=== PATIENT | male | born 1950 | race African-American/Black ===

== ENCOUNTER 2018-07-21 05:04 | Inpatient (IN) | payer MEDICARE, MEDICAID ==
[~2018-07-21] VITALS: Ht 172.7 cm; Wt 97.5 kg
[~2018-07-21 05:04] MED LIST: ACET1TAB14 PO; AMIO100T4 PO; AMLO10TA80 PO; BENA20TA10 PO; CARV6.2548 PO; FURO80TA3 PO; LISI10TA5 PO; P50 PO; TERA5CAP4 PO
[2018-07-21 06:08] LABS: BASOPHILS % 0.6 % (0.0-2.0); EOSINOPHILS % 1.3 % (0.0-5.0); HEMATOCRIT. 35.8 % (42.0-52.0); HEMOGLOBIN. 11.3 g/dL (14.0-18.0); LYMPHOCYTES % 15.9 % (20.0-50.0); MEAN CORPUSCULAR VOLUME 78.8 fL (80.0-94.0); MEAN PLATELET VOLUME 9.4 fl (7.4-10.4); MONOCYTES % 7.8 % (2.0-8.0); NEUTROPHILS % 74.4 % (40.0-76.0); PLATELET 231 x1000/uL (130-400); RED BLOOD CELL COUNT 4.54 mill/uL (4.7-6.1); RED CELL DISTRIBUTION WIDTH 18.7 % (11.6-14.6)
[2018-07-21 06:27] LABS: CHLORIDE 98 mEq/L (98-107)
[2018-07-21 06:31] LABS: ETHANOL BLOOD < 10 mg/dL
[2018-07-21] MEDS ORDERED: SODIUM CHLORIDE 0.9% 500 ML IV ONE (08:15)
[2018-07-21] MEDS ORDERED: PANTOPRAZOLE SODIUM 40 MG/VIAL IV ONE (10:45)
[2018-07-21] MEDS ORDERED: LORAZEPAM 2MG/ML CPJ IV ONE (10:45)
[2018-07-21] MEDS ORDERED: CLONIDINE 0.1MG TABLET PO PRN ×2 (12:15→13:30)
[2018-07-21] MEDS ORDERED: MAGNESIUM/ALUMINUM HYDROXIDE/SIMETHICONE 30ML UDC PO PRN (12:15)
[2018-07-21] MEDS ORDERED: NA PHOS,M-B/NA PHOS,DI-BA ENEMA 118ML PR PRN (12:15)
[2018-07-21] MEDS ORDERED: IPRATROPIUM/ALBUTEROL 0.5-3(2.5)MG/3ML NEB INH PRN (12:15)
[2018-07-21] MEDS ORDERED: DIPHENHYDRAMINE 50MG/ML VIAL IV PRN (12:15)
[2018-07-21] MEDS ORDERED: ACETAMINOPHEN 325MG TABLET PO PRN (12:15)
[2018-07-21] MEDS ORDERED: ONDANSETRON HCL 4MG/2ML INJ IV PRN (12:15)
[2018-07-21 13:02] LABS: CLARITY URINE CLEAR (CLEAR); COLOR URINE YELLOW (YELLOW); KETONES URINE NEGATIVE (NEGATIVE); LEUKOCYTE ESTERASE URINE NEGATIVE (NEGATIVE); NITRITE URINE NEGATIVE (NEGATIVE); OCCULT BLOOD URINE NEGATIVE (NEGATIVE); PROTEIN URINE NEGATIVE (NEGATIVE); SPECIFIC GRAVITY URINE 1.014 (1.005-1.030); UROBILINOGEN URINE 0.2 E.U./dL (0.2-1.0)
[2018-07-21] MEDS ORDERED: MORPHINE SULFATE 2 MG/ML CPJ (NOT FOR IM USE) IV PRN (13:15)
[2018-07-21] MEDS ORDERED: DOCUSATE SODIUM 100MG CAPSULE PO PRN (13:30)
[2018-07-21] MEDS ORDERED: LORAZEPAM 2MG/ML CPJ IV PRN (13:30)
[2018-07-21] MEDS ORDERED: GUAIFENESIN 200MG/10ML SUGAR FREE UDC PO PRN (13:30)
[2018-07-21 13:33] LABS: *COCAINE SCREEN URINE NEGATIVE (NEGATIVE)
[2018-07-21 13:34] LABS: *AMPHETAMINES SCREEN URINE NEGATIVE (NEGATIVE); *BENZODIAZEPINES SCREEN URINE NEGATIVE (NEGATIVE)
[2018-07-21 13:35] LABS: CANNABINOID URINE SCREEN NEGATIVE (NEGATIVE); METHADONE URINE SCREEN NEGATIVE (NEGATIVE); OPIATES URINE SCREEN NEGATIVE (NEGATIVE); PHENCYCLIDINE URINE SCREEN NEGATIVE (NEGATIVE)
[2018-07-21 13:41] LABS: *BARBITURATES SCREEN URINE NEGATIVE (NEGATIVE)
[2018-07-21 14:15] VITALS: BP 129/68
[2018-07-21 16:00] VITALS: BP 90/46
[2018-07-21] MEDS: HYDROCODONE/ACETAMINOPHEN 5/325MG TABLET PO PRN (16:03)
[2018-07-21 17:11] LABS: CREATINE KINASE 243 IU/L (39-308)
[2018-07-21 17:12] LABS: CREATINE KINASE MB FRACTION 4.5 ng/mL (0.5-3.6)
[2018-07-21 20:00] VITALS: BP 112/93
[2018-07-21] MEDS ORDERED: DEXTROSE 50% WATER 50ML SYRINGE IV PRN (20:00)
[2018-07-21] MEDS: BLOOD SUGAR DIAGNOSTIC STRIP TEST SCH (21:00)
[2018-07-21] MEDS: INSULIN LISPRO 100 UNITS/ML SUBCUT SCH (22:02)
[2018-07-22] VITALS (9 sets, daily range): BP systolic 115–147; BP diastolic 67–86
[2018-07-22 06:40] LABS: BASOPHILS % 0.5 % (0.0-2.0); EOSINOPHILS % 0.8 % (0.0-5.0); HEMATOCRIT. 35.3 % (42.0-52.0); HEMOGLOBIN. 11.5 g/dL (14.0-18.0); LYMPHOCYTES % 16.2 % (20.0-50.0); MEAN CORPUSCULAR HEMOGLOBIN 25.3 pg (28.0-32.0); MEAN CORPUSCULAR VOLUME 77.7 fL (80.0-94.0); MONOCYTES % 10.3 % (2.0-8.0); NEUTROPHILS % 72.2 % (40.0-76.0); PLATELET 212 x1000/uL (130-400); RED BLOOD CELL COUNT 4.55 mill/uL (4.7-6.1); RED CELL DISTRIBUTION WIDTH 18.6 % (11.6-14.6)
[2018-07-22 06:55] LABS: CHLORIDE 98 mEq/L (98-107)
[2018-07-22 07:07] LABS: CREATINE KINASE 207 IU/L (39-308)
[2018-07-22 07:12] LABS: CREATINE KINASE MB FRACTION 3.3 ng/mL (0.5-3.6)
[2018-07-22] MEDS: BLOOD SUGAR DIAGNOSTIC STRIP TEST SCH ×4 (07:40→21:09)
[2018-07-22] MEDS: PANTOPRAZOLE SODIUM 40 MG/VIAL IV SCH (08:51)
[2018-07-22] MEDS: INSULIN LISPRO 100 UNITS/ML SUBCUT SCH (08:58)
[2018-07-22] MEDS: INSULIN LISPRO (HIGH DOSE) 100 UNITS/ML SUBCUT SCH ×3 (13:56→21:15)
[2018-07-22] MEDS ORDERED: INSULIN LISPRO 100 UNITS/ML SUBCUT SCH (17:40)
[2018-07-22] MEDS: MORPHINE SULFATE 4 MG/ML CPJ (NOT FOR IM USE) IV PRN (18:24)
[2018-07-22] MEDS: SODIUM CHLORIDE 0.45% 1,000 ML IV SCH (18:32)
[2018-07-22] MEDS: HYDROCODONE/ACETAMINOPHEN 5/325MG TABLET PO PRN ×2 (19:47→21:17)
[2018-07-22] MEDS: INSULIN GLARGINE UD 100 UNITS/ML SYR SUBCUT SCH (21:17)
[2018-07-23] VITALS (7 sets, daily range): BP systolic 111–147; BP diastolic 65–112
[2018-07-23] MEDS: SODIUM CHLORIDE 0.45% 1,000 ML IV SCH ×2 (04:36→13:54)
[2018-07-23] MEDS: BLOOD SUGAR DIAGNOSTIC STRIP TEST SCH ×4 (04:49→21:51)
[2018-07-23] MEDS: INSULIN LISPRO (HIGH DOSE) 100 UNITS/ML SUBCUT SCH ×5 (05:08→21:10)
[2018-07-23] MEDS: PANTOPRAZOLE SODIUM 40 MG/VIAL IV SCH (08:34)
[2018-07-23 08:48] LABS: HEMATOCRIT 35.3 % (42.0-52.0); HEMOGLOBIN 11.5 g/dL (14.0-18.0); MEAN CORPUSCULAR HEMOGLOBIN 25.3 pg (28.0-32.0); PLATELET 293 x1000/uL (130-400); RED BLOOD CELL COUNT 4.52 mill/uL (4.7-6.1); RED CELL DISTRIBUTION WIDTH 18.5 % (11.6-14.6)
[2018-07-23 10:40] LABS: CHLORIDE 96 mEq/L (98-107)
[2018-07-23] MEDS: HYDROCODONE/ACETAMINOPHEN 5/325MG TABLET PO PRN (21:00)
[2018-07-23] MEDS: INSULIN GLARGINE UD 100 UNITS/ML SYR SUBCUT SCH (21:55)
[2018-07-24] VITALS: BP 176/87
[2018-07-24] MEDS: SODIUM CHLORIDE 0.45% 1,000 ML IV SCH (00:36)
[2018-07-24 04:00] VITALS: BP 144/100
[2018-07-24 07:22] LABS: BASOPHILS % 1.2 % (0.0-2.0); EOSINOPHILS % 1.2 % (0.0-5.0); HEMATOCRIT. 34.2 % (42.0-52.0); HEMOGLOBIN. 11.2 g/dL (14.0-18.0); MEAN CORPUSCULAR HEMOGLOBIN 25.3 pg (28.0-32.0); MEAN CORPUSCULAR VOLUME 77.6 fL (80.0-94.0); MEAN PLATELET VOLUME 9.2 fl (7.4-10.4); MONOCYTES % 11.3 % (2.0-8.0); NEUTROPHILS % 66.3 % (40.0-76.0); PLATELET 286 x1000/uL (130-400); RED BLOOD CELL COUNT 4.41 mill/uL (4.7-6.1); RED CELL DISTRIBUTION WIDTH 18.6 % (11.6-14.6)
[2018-07-24 07:36] LABS: CHLORIDE 102 mEq/L (98-107)
[2018-07-24] MEDS: BLOOD SUGAR DIAGNOSTIC STRIP TEST SCH ×3 (07:40→17:30)
[2018-07-24 08:00] VITALS: BP 132/79
[2018-07-24] MEDS: INSULIN LISPRO (HIGH DOSE) 100 UNITS/ML SUBCUT SCH ×3 (09:22→18:55)
[2018-07-24 12:00] VITALS: BP 150/91
[2018-07-24] MEDS: MORPHINE SULFATE 4 MG/ML CPJ (NOT FOR IM USE) IV PRN (12:12)
[2018-07-24] MEDS: HYDROCODONE/ACETAMINOPHEN 5/325MG TABLET PO PRN (14:48)
[2018-07-24 16:00] VITALS: BP 169/76
[2018-07-24] MEDS ORDERED: FAMOTIDINE 20MG TABLET PO SCH (17:00)
[2018-07-24 18:07] VITALS: BP 169/76
== END 2018-07-24 19:30 | disposition home or self-care (01) | DRG 682 ==
LOC: ER 05:04 → 7WST 11:19 → ENRESERV 11:44
PROVIDERS: ADMIT Internal Medicine; ATTEND Internal Medicine
DX: N17.9 Acute kidney failure, unspecified (principal); K29.71 Gastritis, unspecified, with bleeding; E87.1 Hypo-osmolality and hyponatremia; I67.82 Cerebral ischemia; N18.9 Chronic kidney disease, unspecified; E11.22 Type 2 diabetes mellitus with diabetic chronic kidney disease; I12.9 Hypertensive chronic kidney disease with stage 1 through stage 4 chronic kidney disease, or unspecified chronic kidney disease; K29.60 Other gastritis without bleeding; D64.9 Anemia, unspecified; R33.9 Retention of urine, unspecified; I77.810 Thoracic aortic ectasia; K57.30 Diverticulosis of large intestine without perforation or abscess without bleeding; K80.20 Calculus of gallbladder without cholecystitis without obstruction; N28.1 Cyst of kidney, acquired; E11.40 Type 2 diabetes mellitus with diabetic neuropathy, unspecified; R39.11 Hesitancy of micturition; Z87.891 Personal history of nicotine dependence; Z86.73 Personal history of transient ischemic attack (TIA), and cerebral infarction without residual deficits; Z79.82 Long term (current) use of aspirin
CPT/HCPCS: 36415; 70450; 71045; 74176; 80048; 80053; 80305; 81003; 82550; 82553; 82962; 83036; 84484; 85025; 85027; 86850; 86870; 86900; 93005; 96361; 96374; 99285; C9113; G0482; J1815; J2060; J2270; J7030; J7040; J7050

== ENCOUNTER 2018-08-12 13:01 | Emergency (ER) | payer MEDICARE, MEDICAID ==
[~2018-08-12] VITALS: Ht 180.3 cm; Wt 95.0 kg
[2018-08-12] MEDS ORDERED: SUCCINYLCHOLINE CHLORIDE 200MG/10ML IV ONE ×2 (13:15→13:51)
[2018-08-12] MEDS ORDERED: PROPOFOL 10MG/ML 100ML 100 ML IV ONE (13:15)
[2018-08-12] MEDS ORDERED: ETOMIDATE 2MG/ML 10ML VIAL IV ONE ×2 (13:15→13:51)
[2018-08-12 13:21] LABS: BASOPHILS % 0.7 % (0.0-2.0); EOSINOPHILS % 1.7 % (0.0-5.0); HEMATOCRIT. 30.4 % (42.0-52.0); HEMOGLOBIN. 9.6 g/dL (14.0-18.0); LYMPHOCYTES % 15.1 % (20.0-50.0); MEAN CORPUSCULAR HEMOGLOBIN 24.6 pg (28.0-32.0); MONOCYTES % 7.2 % (2.0-8.0); NEUTROPHILS % 75.3 % (40.0-76.0); PLATELET 226 x1000/uL (130-400); RED CELL DISTRIBUTION WIDTH 17.9 % (11.6-14.6)
[2018-08-12 13:31] LABS: CHLORIDE 104 mEq/L (98-107); ETHANOL BLOOD < 10 mg/dL
[2018-08-12 13:36] LABS: INR 1.1; PROTHROMBIN TIME 10.7 sec (9.1-11.1)
[2018-08-12 13:38] LABS: LDL CHOLESTEROL 102 mg/dL (5-100)
[2018-08-12 13:48] LABS: BG BASE EXCESS -5.8 mmol/L (-2.0-2.0); BG CARBOXYHEMOGLOBIN 0.3 % (0.5-1.5); BG DEOXYHEMOGLOBIN 0.6 % (0.0-5.0); BG FRACTION INSPIRED OXYGEN 100; BG HCO3 ACT 18.6 mmol/L (22.0-26.0); BG METHEMOGLOBIN 0.3 % (0.0-1.5); BG OXYGEN SATURATION 99.4 % (92.0-98.5); BG OXYHEMOGLOBIN 98.8 % (94.0-97.0); BG PCO2 32.1 mmHg (35.0-45.0); BG SAMPLE SITE RIGHT RADIAL; BG TIDAL VOLUME(mL) 500 mL; BG TOTAL HEMOGLOBIN 9.7 g/dL (12.0-18.0); BG VENT MODE VENT - A/C; BG VENT RATE 14 set
[2018-08-12 15:22] LABS: CLARITY URINE CLEAR (CLEAR); COLOR URINE YELLOW (YELLOW); KETONES URINE TRACE (NEGATIVE); LEUKOCYTE ESTERASE URINE NEGATIVE (NEGATIVE); NITRITE URINE NEGATIVE (NEGATIVE); OCCULT BLOOD URINE NEGATIVE (NEGATIVE); PROTEIN URINE NEGATIVE (NEGATIVE); SPECIFIC GRAVITY URINE 1.014 (1.005-1.030)
[2018-08-12 15:44] LABS: *AMPHETAMINES SCREEN URINE NEGATIVE (NEGATIVE); *BARBITURATES SCREEN URINE NEGATIVE (NEGATIVE); *COCAINE SCREEN URINE NEGATIVE (NEGATIVE)
[2018-08-12 15:45] LABS: *BENZODIAZEPINES SCREEN URINE NEGATIVE (NEGATIVE); CANNABINOID URINE SCREEN NEGATIVE (NEGATIVE); METHADONE URINE SCREEN NEGATIVE (NEGATIVE); OPIATES URINE SCREEN PRESUMTIVE POSITIVE (NEGATIVE); PHENCYCLIDINE URINE SCREEN NEGATIVE (NEGATIVE)
[2018-08-12] MEDS ORDERED: DEXTROSE 50% WATER 50ML SYRINGE IV PRN (15:45)
[2018-08-12] MEDS ORDERED: BLOOD SUGAR DIAGNOSTIC STRIP TEST SCH (15:45)
[2018-08-12] MEDS ORDERED: NOREPINEPHRINE 4 MG in DEXT 5% WATER 246 ML IV PRN (15:45)
[2018-08-12] MEDS ORDERED: IPRATROPIUM/ALBUTEROL 0.5-3(2.5)MG/3ML NEB HHN PRN (15:45)
[2018-08-12] MEDS ORDERED: PROPOFOL 10MG/ML 100ML 100 ML IV PRN (15:45)
[2018-08-12] MEDS ORDERED: PIPERACILLIN/TAZ 3.375G PREMIX 50 ML IV SCH (15:45)
[2018-08-12] MEDS ORDERED: DEXT 5%/0.45% NACL 1000ML 1,000 ML IV SCH (15:56)
[2018-08-12] MEDS ORDERED: CLONIDINE 0.1MG TABLET PO PRN (16:00)
[2018-08-12] MEDS ORDERED: ENOXAPARIN 40MG/0.4ML SYR SUBCUT SCH (16:00)
[2018-08-12] MEDS ORDERED: HYDROCODONE/ACETAMINOPHEN 5/325MG TABLET PO PRN (16:00)
[2018-08-12] MEDS ORDERED: GUAIFENESIN 200MG/10ML SUGAR FREE UDC PO PRN (16:00)
[2018-08-12] MEDS ORDERED: DIPHENHYDRAMINE 50MG/ML VIAL IV PRN (16:00)
[2018-08-12] MEDS ORDERED: ACETAMINOPHEN 325MG TABLET PO PRN (16:00)
[2018-08-12] MEDS ORDERED: MORPHINE SULFATE 4 MG/ML CPJ (NOT FOR IM USE) IV PRN (16:00)
[2018-08-12] MEDS ORDERED: CEFTRIAXONE 1 G PREMIX 50 ML IV SCH (16:00)
[2018-08-12] MEDS ORDERED: IPRATROPIUM/ALBUTEROL 0.5-3(2.5)MG/3ML NEB HHN SCH (16:00)
[2018-08-12] MEDS ORDERED: MAGNESIUM/ALUMINUM HYDROXIDE/SIMETHICONE 30ML UDC PO PRN (16:00)
[2018-08-12] MEDS ORDERED: DOCUSATE SODIUM 100MG CAPSULE PO PRN (16:00)
[2018-08-12] MEDS ORDERED: ONDANSETRON HCL 4MG/2ML INJ IV PRN (16:00)
[2018-08-12] MEDS ORDERED: LORAZEPAM 2MG/ML CPJ IV PRN (16:00)
[2018-08-12] MEDS ORDERED: NA PHOS,M-B/NA PHOS,DI-BA ENEMA 118ML PR PRN (16:00)
[2018-08-12] MEDS ORDERED: IPRATROPIUM/ALBUTEROL 0.5-3(2.5)MG/3ML NEB INH PRN (16:00)
[2018-08-12] MEDS ORDERED: PROPOFOL 10MG/ML 100ML 100 ML IV SCH (16:45)
[2018-08-12] MEDS ORDERED: MIDAZOLAM HCL 50 MG in DEXTROSE 5% WATER 40 ML IV ONE ×2 (18:00→18:30)
[2018-08-12] MEDS ORDERED: INSULIN LISPRO 100 UNITS/ML SUBCUT SCH (18:20)
[2018-08-12] MEDS ORDERED: IOHEXOL-350 100 ML BOTTLE ONE (19:06)
[2018-08-12 19:15] VITALS: BP 99/60
[2018-08-13] MEDS ORDERED: ASPIRIN 81MG EC TABLET PO SCH (09:00)
== END 2018-08-12 19:30 | disposition short-term general hospital (02) ==
LOC: ER 13:01 → EDBEDREQ 13:47 → EDBEDREQTM 15:51 → ENRESERV 16:34 → CANRESERV 16:34 → CANBEDREQ 19:15 → ENRESERV 19:15 → ER 19:30
DX: J96.00 Acute respiratory failure, unspecified whether with hypoxia or hypercapnia (principal); R41.82 Altered mental status, unspecified; G45.0 Vertebro-basilar artery syndrome; E11.9 Type 2 diabetes mellitus without complications; I50.9 Heart failure, unspecified; Z79.899 Other long term (current) drug therapy
CPT/HCPCS: 31500; 36415; 36600; 70450; 70496; 70498; 71045; 80053; 80305; 81003; 82010; 82375; 82805; 82962; 83605; 83721; 83880; 83930; 84484; 85025; 85610; 93005; 94002; 96374; 96375; 99291; G0482; J0330; J2250; J2704; J3490; Q9967; J7060

== ENCOUNTER 2019-01-26 14:16 | Inpatient (IN) | payer MEDICAID, MEDICARE ==
[~2019-01-26] VITALS: Ht 180.3 cm; Wt 115.2 kg
[2019-01-26 15:15] LABS: BASOPHILS % 0.4 % (0.0-2.0); EOSINOPHILS % 1.6 % (0.0-5.0); LYMPHOCYTES % 8.4 % (20.0-50.0); MEAN CORPUSCULAR HEMOGLOBIN 24.8 pg (28.0-32.0); MEAN CORPUSCULAR VOLUME 77.5 fL (80.0-94.0); MEAN PLATELET VOLUME 8.1 fl (7.4-10.4); MONOCYTES % 7.4 % (2.0-8.0); NEUTROPHILS % 82.2 % (40.0-76.0); PLATELET 339 x1000/uL (130-400); RED BLOOD CELL COUNT 2.19 mill/uL (4.7-6.1); RED CELL DISTRIBUTION WIDTH 20.7 % (11.6-14.6)
[2019-01-26 15:21] LABS: CHLORIDE 104 mEq/L (98-107)
[2019-01-26 15:22] LABS: INR 1.2; PROTHROMBIN TIME 12.4 sec (9.6-11.0)
[2019-01-26 15:27] LABS: HEMOGLOBIN. 5.4 g/dL (14.0-18.0)
[2019-01-26 15:29] LABS: CREATINE KINASE 236 IU/L (39-308)
[2019-01-26 18:06] LABS: BG BASE EXCESS 9.6 mmol/L (-2.0-2.0); BG CARBOXYHEMOGLOBIN 0.1 % (0.5-1.5); BG DEOXYHEMOGLOBIN 1.2 % (0.0-5.0); BG HCO3 ACT 33.9 mmol/L (22.0-26.0); BG METHEMOGLOBIN 0.3 % (0.0-1.5); BG OXYGEN SATURATION 98.8 % (92.0-98.5); BG OXYHEMOGLOBIN 98.4 % (94.0-97.0); BG PCO2 45.8 mmHg (35.0-45.0); BG PH 7.487 (7.350-7.450); BG PO2 140.6 mmHg (75.0-100.0); BG SAMPLE SITE RIGHT RADIAL; BG TIDAL VOLUME(mL) 600 mL; BG TOTAL HEMOGLOBIN 5.8 g/dL (12.0-18.0); BG VENT MODE VENT - A/C; BG VENT RATE 10 set
[2019-01-26 19:37] LABS: CLARITY URINE CLOUDY (CLEAR); COLOR URINE DARK YELLOW (YELLOW); KETONES URINE NEGATIVE (NEGATIVE); LEUKOCYTE ESTERASE URINE 3+ (NEGATIVE); NITRITE URINE POSITIVE (NEGATIVE); OCCULT BLOOD URINE TRACE (NEGATIVE); PH URINE 5.5 (4.5-8.0); PROTEIN URINE TRACE (NEGATIVE)
[2019-01-26] MEDS ORDERED: HYDROCODONE/ACETAMINOPHEN 5/325MG TABLET PO PRN (21:00)
[2019-01-26] MEDS ORDERED: CLONIDINE 0.1MG TABLET PO PRN (21:00)
[2019-01-26] MEDS ORDERED: MAGNESIUM/ALUMINUM HYDROXIDE/SIMETHICONE 30ML UDC PO PRN (21:00)
[2019-01-26] MEDS ORDERED: DOCUSATE SODIUM 100MG CAPSULE PO PRN (21:00)
[2019-01-26] MEDS ORDERED: ONDANSETRON HCL 4MG/2ML INJ IV PRN (21:00)
[2019-01-26 21:17] LABS: TOTAL IRON BINDING CAPACITY 136 ug/dL (250-450)
[2019-01-26] MEDS ORDERED: DEXTROSE 50% WATER 50ML SYRINGE IV ONE ×4 (21:27→22:00)
[2019-01-26] MEDS ORDERED: DEXT 10% WATER 1,000 ML IV ONE (21:49)
[2019-01-26] MEDS ORDERED: MORPHINE SULFATE 4 MG/ML CPJ (NOT FOR IM USE) IV PRN (22:30)
[2019-01-27] VITALS (14 sets, daily range): BP systolic 124–157; BP diastolic 52–92
[2019-01-27] MEDS ORDERED: APIX5TAB GT (01:30)
[2019-01-27] MEDS ORDERED: ATOR40TA70 GT (01:30)
[2019-01-27] MEDS ORDERED: DOCU-138 GT (01:30)
[2019-01-27] MEDS ORDERED: CARV6.2548 GT (01:30)
[2019-01-27] MEDS ORDERED: SODIUM CHLORIDE 0.9% 1,000 ML IV SCH (02:30)
[2019-01-27] MEDS ORDERED: LANS30CA55 GT (04:45)
[2019-01-27] MEDS ORDERED: FERR220S12 GT (04:45)
[2019-01-27] MEDS ORDERED: LEVE500S9 GT (04:45)
[2019-01-27] MEDS ORDERED: INSNPH SUBCUT (04:45)
[2019-01-27] MEDS ORDERED: NA P230E RC (04:45)
[2019-01-27] MEDS ORDERED: BISA10SU62 RC (04:45)
[2019-01-27] MEDS ORDERED: LUBI8CAP GT (04:45)
[2019-01-27] MEDS ORDERED: HYDR-4133 GT (04:45)
[2019-01-27] MEDS ORDERED: PRAZ2CAP2 GT (04:49)
[2019-01-27] MEDS ORDERED: MULT-1146 GT (04:49)
[2019-01-27] MEDS ORDERED: ASCO-339 GT (04:49)
[2019-01-27] MEDS ORDERED: ZINC220T GT (04:50)
[2019-01-27 06:52] LABS: MEAN CORPUSCULAR HEMOGLOBIN 25.9 pg (28.0-32.0); MEAN CORPUSCULAR VOLUME 77.9 fL (80.0-94.0); MEAN PLATELET VOLUME 8.7 fl (7.4-10.4); PLATELET 333 x1000/uL (130-400); RED CELL DISTRIBUTION WIDTH 19.3 % (11.6-14.6)
[2019-01-27 07:04] LABS: HEMATOCRIT. 20.2 % (42.0-52.0); HEMOGLOBIN. 6.7 g/dL (14.0-18.0)
[2019-01-27 07:44] LABS: CHLORIDE 104 mEq/L (98-107)
[2019-01-27 07:51] LABS: PHOSPHORUS 3.6 mg/dL (2.5-4.9)
[2019-01-27] MEDS ORDERED: DEXTROSE 50% WATER 50ML SYRINGE IV PRN ×2 (08:15→10:15)
[2019-01-27 08:29] LABS: PLATELET ESTIMATE NORMAL
[2019-01-27] MEDS ORDERED: LIDOCAINE HCL 1% 20ML VIAL (Pyxis) INJ ONE (08:48)
[2019-01-27] MEDS ORDERED: PANTOPRAZOLE SODIUM 40 MG/VIAL IV SCH (09:00)
[2019-01-27] MEDS ORDERED: DEXTROSE 10% WATER 500 ML IV ONE (09:45)
[2019-01-27] MEDS ORDERED: FUROSEMIDE 40MG/4ML VIAL IVP NR (09:45)
[2019-01-27] MEDS: BLOOD SUGAR DIAGNOSTIC STRIP TEST SCH ×2 (12:36→17:47)
[2019-01-27] MEDS: LEVETIRACETAM 500 MG in SODIUM CHLORIDE 0.9% 100 ML IV SCH ×2 (12:41→20:51)
[2019-01-27] MEDS: AMIODARONE HCL 200 MG TABLET PO SCH (14:21)
[2019-01-27] MEDS ORDERED: IPRATROPIUM/ALBUTEROL 0.5-3(2.5)MG/3ML NEB HHN PRN (15:00)
[2019-01-27] MEDS ORDERED: CEFTRIAXONE 1 G PREMIX 50 ML IV SCH (17:00)
[2019-01-27] MEDS: PANTOPRAZOLE SODIUM 40 MG/VIAL IV SCH (17:25)
[2019-01-27 19:19] LABS: HEMATOCRIT 25.3 % (42.0-52.0); HEMOGLOBIN 8.2 g/dL (14.0-18.0)
[2019-01-27] MEDS: AMLODIPINE 5MG TABLET PO SCH (20:48)
[2019-01-27] MEDS: ATORVASTATIN CALCIUM 40MG TABLET PO SCH (20:48)
[2019-01-27] MEDS: CARVEDILOL 6.25 MG TABLET PO SCH (20:48)
[2019-01-27] MEDS: IPRATROPIUM/ALBUTEROL 0.5-3(2.5)MG/3ML NEB HHN SCH (21:50)
[2019-01-28] VITALS (12 sets, daily range): BP systolic 113–144; BP diastolic 56–74
[2019-01-28] MEDS: IPRATROPIUM/ALBUTEROL 0.5-3(2.5)MG/3ML NEB HHN SCH ×4 (01:30→20:25)
[2019-01-28 07:01] LABS: BASOPHILS % 0.3 % (0.0-2.0); EOSINOPHILS % 0.8 % (0.0-5.0); HEMATOCRIT. 25.2 % (42.0-52.0); HEMOGLOBIN. 8.2 g/dL (14.0-18.0); LYMPHOCYTES % 7.1 % (20.0-50.0); MEAN CORPUSCULAR HEMOGLOBIN 26.1 pg (28.0-32.0); MEAN CORPUSCULAR VOLUME 79.9 fL (80.0-94.0); MEAN PLATELET VOLUME 8.4 fl (7.4-10.4); MONOCYTES % 7.5 % (2.0-8.0); NEUTROPHILS % 84.3 % (40.0-76.0); PLATELET 367 x1000/uL (130-400); RED BLOOD CELL COUNT 3.16 mill/uL (4.7-6.1); RED CELL DISTRIBUTION WIDTH 18.5 % (11.6-14.6)
[2019-01-28 07:07] LABS: CHLORIDE 104 mEq/L (98-107)
[2019-01-28] MEDS: FUROSEMIDE 40MG/4ML VIAL IVP SCH (08:52)
[2019-01-28] MEDS: PANTOPRAZOLE SODIUM 40 MG/VIAL IV SCH ×2 (08:52→16:34)
[2019-01-28] MEDS: LEVETIRACETAM 500 MG in SODIUM CHLORIDE 0.9% 100 ML IV SCH ×2 (08:52→21:14)
[2019-01-28 08:54] LABS: BG BASE EXCESS 4.9 mmol/L (-2.0-2.0); BG CARBOXYHEMOGLOBIN 0.2 % (0.5-1.5); BG DEOXYHEMOGLOBIN 1.8 % (0.0-5.0); BG FRACTION INSPIRED OXYGEN 40; BG HCO3 ACT 29.2 mmol/L (22.0-26.0); BG METHEMOGLOBIN 0.3 % (0.0-1.5); BG OXYGEN SATURATION 98.2 % (92.0-98.5); BG OXYHEMOGLOBIN 97.7 % (94.0-97.0); BG PCO2 42.2 mmHg (35.0-45.0); BG PH 7.458 (7.350-7.450); BG PO2 112.5 mmHg (75.0-100.0); BG PRESSURE SUPPORT 14; BG SAMPLE SITE RIGHT RADIAL; BG TIDAL VOLUME(mL) 600 mL; BG TOTAL HEMOGLOBIN 8.6 g/dL (12.0-18.0); BG VENT MODE VENT - SIMV; BG VENT RATE 10 set
[2019-01-28] MEDS: AMLODIPINE 5MG TABLET PO SCH ×2 (09:00→21:15)
[2019-01-28] MEDS: CARVEDILOL 6.25 MG TABLET PO SCH ×2 (09:00→21:15)
[2019-01-28] MEDS: AMIODARONE HCL 200 MG TABLET PO SCH (09:00)
[2019-01-28] MEDS: CEFAZOLIN 1000MG PREMIX 50 ML IV SCH ×2 (11:31→18:20)
[2019-01-28] MEDS: BLOOD SUGAR DIAGNOSTIC STRIP TEST SCH ×3 (12:00→17:34)
[2019-01-28 12:06] LABS: HEMATOCRIT 25.8 % (42.0-52.0); HEMOGLOBIN 8.3 g/dL (14.0-18.0)
[2019-01-28] MEDS ORDERED: EPINEPHRINE 0.1MG/ML (1:10,000) 10ML SYR ONE (16:00)
[2019-01-28] MEDS ORDERED: MIDAZOLAM HCL 5 MG/5 ML VIAL ONE ×2 (16:21→16:22)
[2019-01-28] MEDS ORDERED: DIPHENHYDRAMINE 50MG/ML VIAL ONE (16:21)
[2019-01-28] MEDS ORDERED: FENTANYL CITRATE/PF 50MCG/ML 2ML VIAL ONE (16:22)
[2019-01-28] MEDS ORDERED: MIDAZOLAM HCL 2 MG/2 ML VIAL IV PRN (16:48)
[2019-01-28] MEDS ORDERED: FENTANYL CITRATE/PF 50MCG/ML 2ML VIAL IV PRN (16:50)
[2019-01-28] MEDS ORDERED: SUCRALFATE 1 G/10 ML UDC GT SCH (17:30)
[2019-01-28] MEDS ORDERED: POTASSIUM CHLORIDE 20MEQ/PACKET GT NR (17:45)
[2019-01-28] MEDS: SUCRALFATE 1 G/10 ML UDC GT SCH (18:21)
[2019-01-28] MEDS: METOCLOPRAMIDE HCL 10MG/2ML VIAL IV SCH (18:21)
[2019-01-28] MEDS: DEXT 5%/0.45% NACL 1000ML 1,000 ML IV SCH (18:22)
[2019-01-28 18:44] LABS: HEMATOCRIT 24.8 % (42.0-52.0)
[2019-01-28] MEDS: ATORVASTATIN CALCIUM 40MG TABLET PO SCH (21:14)
[2019-01-29] VITALS (15 sets, daily range): BP systolic 123–158; BP diastolic 60–83
[2019-01-29] MEDS: IPRATROPIUM/ALBUTEROL 0.5-3(2.5)MG/3ML NEB HHN SCH ×4 (01:06→20:54)
[2019-01-29] MEDS: METOCLOPRAMIDE HCL 10MG/2ML VIAL IV SCH ×5 (03:16→23:42)
[2019-01-29] MEDS: CEFAZOLIN 1000MG PREMIX 50 ML IV SCH ×2 (03:16→11:50)
[2019-01-29] MEDS: SUCRALFATE 1 G/10 ML UDC GT SCH ×5 (06:37→23:42)
[2019-01-29] MEDS: BLOOD SUGAR DIAGNOSTIC STRIP TEST SCH ×5 (06:37→23:42)
[2019-01-29 07:14] LABS: CHLORIDE 104 mEq/L (98-107)
[2019-01-29 07:49] LABS: HEMATOCRIT. 25.4 % (42.0-52.0); HEMOGLOBIN. 8.2 g/dL (14.0-18.0); MEAN CORPUSCULAR HEMOGLOBIN 25.8 pg (28.0-32.0); MEAN CORPUSCULAR VOLUME 80.2 fL (80.0-94.0); MEAN PLATELET VOLUME 8.1 fl (7.4-10.4); PLATELET 371 x1000/uL (130-400); RED BLOOD CELL COUNT 3.17 mill/uL (4.7-6.1); RED CELL DISTRIBUTION WIDTH 19.3 % (11.6-14.6)
[2019-01-29] MEDS: PANTOPRAZOLE SODIUM 40 MG/VIAL IV SCH ×2 (08:36→18:06)
[2019-01-29] MEDS: LEVETIRACETAM 500 MG in SODIUM CHLORIDE 0.9% 100 ML IV SCH ×2 (08:36→21:00)
[2019-01-29] MEDS: FUROSEMIDE 40MG/4ML VIAL IVP SCH (08:36)
[2019-01-29] MEDS: AMLODIPINE 5MG TABLET PO SCH ×2 (08:37→21:00)
[2019-01-29] MEDS: CARVEDILOL 6.25 MG TABLET PO SCH ×2 (08:37→23:40)
[2019-01-29] MEDS: AMIODARONE HCL 200 MG TABLET PO SCH (08:38)
[2019-01-29 12:07] LABS: HEMATOCRIT 24.7 % (42.0-52.0); HEMOGLOBIN 7.9 g/dL (14.0-18.0)
[2019-01-29 12:46] LABS: PLATELET ESTIMATE NORMAL
[2019-01-29] MEDS ORDERED: POTASSIUM CHLORIDE 20MEQ/PACKET GT NR (14:15)
[2019-01-29] MEDS: DEXT 5%/0.45% NACL 1000ML 1,000 ML IV SCH (14:16)
[2019-01-29] MEDS: PIPERACILLIN/TAZ 3.375G PREMIX 50 ML IV SCH ×2 (18:19→23:45)
[2019-01-29] MEDS: ATORVASTATIN CALCIUM 40MG TABLET PO SCH (21:00)
[2019-01-29 23:11] LABS: HEMATOCRIT 27.5 % (42.0-52.0)
[2019-01-30] VITALS (12 sets, daily range): BP systolic 139–156; BP diastolic 67–96
[2019-01-30] MEDS: IPRATROPIUM/ALBUTEROL 0.5-3(2.5)MG/3ML NEB HHN SCH ×4 (02:16→20:57)
[2019-01-30] MEDS: METOCLOPRAMIDE HCL 10MG/2ML VIAL IV SCH ×4 (05:27→23:01)
[2019-01-30] MEDS: SUCRALFATE 1 G/10 ML UDC GT SCH ×4 (05:27→23:01)
[2019-01-30] MEDS: BLOOD SUGAR DIAGNOSTIC STRIP TEST SCH ×3 (05:51→18:28)
[2019-01-30] MEDS: PIPERACILLIN/TAZ 3.375G PREMIX 50 ML IV SCH ×2 (05:52→13:24)
[2019-01-30 07:03] LABS: HEMATOCRIT. 28.5 % (42.0-52.0); HEMOGLOBIN. 9.5 g/dL (14.0-18.0); MEAN CORPUSCULAR HEMOGLOBIN 26.9 pg (28.0-32.0); MEAN CORPUSCULAR VOLUME 80.4 fL (80.0-94.0); PLATELET 400 x1000/uL (130-400); RED BLOOD CELL COUNT 3.54 mill/uL (4.7-6.1); RED CELL DISTRIBUTION WIDTH 18.8 % (11.6-14.6)
[2019-01-30 08:40] LABS: CHLORIDE 103 mEq/L (98-107)
[2019-01-30 09:42] LABS: PLATELET ESTIMATE NORMAL
[2019-01-30] MEDS: DEXT 5%/0.45% NACL 1000ML 1,000 ML IV SCH (10:03)
[2019-01-30] MEDS: LEVETIRACETAM 500 MG in SODIUM CHLORIDE 0.9% 100 ML IV SCH ×2 (10:03→21:05)
[2019-01-30] MEDS: AMLODIPINE 5MG TABLET PO SCH ×2 (10:04→21:05)
[2019-01-30] MEDS: AMIODARONE HCL 200 MG TABLET PO SCH (10:04)
[2019-01-30] MEDS: CARVEDILOL 6.25 MG TABLET PO SCH ×2 (10:04→21:05)
[2019-01-30] MEDS: PANTOPRAZOLE SODIUM 40 MG/VIAL IV SCH ×2 (10:04→18:02)
[2019-01-30] MEDS: FUROSEMIDE 40MG/4ML VIAL IVP SCH (10:04)
[2019-01-30] MEDS ORDERED: KCL 20MEQ/100ML PREMIX 100 ML IV NR (13:00)
[2019-01-30] MEDS: MEROPENEM 1,000 MG in SODIUM CHLORIDE 0.9% 100 ML IV SCH ×2 (18:02→23:01)
[2019-01-30] MEDS: ATORVASTATIN CALCIUM 40MG TABLET PO SCH (21:05)
[2019-01-31] VITALS (11 sets, daily range): BP systolic 134–172; BP diastolic 67–93
[2019-01-31] MEDS: IPRATROPIUM/ALBUTEROL 0.5-3(2.5)MG/3ML NEB HHN SCH ×5 (01:05→23:50)
[2019-01-31] MEDS ORDERED: LORAZEPAM 2MG/ML CPJ IV PRN (04:45)
[2019-01-31] MEDS: METOCLOPRAMIDE HCL 10MG/2ML VIAL IV SCH ×3 (05:39→17:05)
[2019-01-31] MEDS: SUCRALFATE 1 G/10 ML UDC GT SCH ×3 (05:39→17:09)
[2019-01-31] MEDS: MEROPENEM 1,000 MG in SODIUM CHLORIDE 0.9% 100 ML IV SCH ×3 (05:39→23:55)
[2019-01-31] MEDS: DEXT 5%/0.45% NACL 1000ML 1,000 ML IV SCH (05:40)
[2019-01-31] MEDS: BLOOD SUGAR DIAGNOSTIC STRIP TEST SCH ×3 (06:00→12:46)
[2019-01-31 07:06] LABS: HEMATOCRIT. 27.7 % (42.0-52.0); HEMOGLOBIN. 9.1 g/dL (14.0-18.0); MEAN CORPUSCULAR HEMOGLOBIN 26.4 pg (28.0-32.0); MEAN CORPUSCULAR VOLUME 80.6 fL (80.0-94.0); MEAN PLATELET VOLUME 7.8 fl (7.4-10.4); PLATELET 359 x1000/uL (130-400); RED BLOOD CELL COUNT 3.43 mill/uL (4.7-6.1); RED CELL DISTRIBUTION WIDTH 19.3 % (11.6-14.6)
[2019-01-31 07:17] LABS: CHLORIDE 103 mEq/L (98-107)
[2019-01-31 07:34] LABS: CLARITY URINE TURBID (CLEAR); KETONES URINE 1+ (NEGATIVE); LEUKOCYTE ESTERASE URINE 2+ (NEGATIVE); NITRITE URINE NEGATIVE (NEGATIVE); OCCULT BLOOD URINE NEGATIVE (NEGATIVE); PROTEIN URINE 2+ (NEGATIVE); SPECIFIC GRAVITY URINE 1.024 (1.005-1.030); UROBILINOGEN URINE >=8.0 E.U./dL (0.2-1.0)
[2019-01-31 07:47] LABS: COLOR URINE AMBER (YELLOW)
[2019-01-31] MEDS: PANTOPRAZOLE SODIUM 40 MG/VIAL IV SCH ×2 (08:35→17:05)
[2019-01-31] MEDS: FUROSEMIDE 40MG/4ML VIAL IVP SCH (08:35)
[2019-01-31] MEDS: AMIODARONE HCL 200 MG TABLET PO SCH (08:35)
[2019-01-31] MEDS: LEVETIRACETAM 500 MG in SODIUM CHLORIDE 0.9% 100 ML IV SCH ×2 (08:35→20:51)
[2019-01-31] MEDS: CARVEDILOL 6.25 MG TABLET PO SCH ×2 (08:36→20:50)
[2019-01-31] MEDS: AMLODIPINE 5MG TABLET PO SCH ×2 (08:37→20:49)
[2019-01-31] MEDS ORDERED: POTASSIUM CHLORIDE INJ 40 MEQ in DEXT 5% WATER 250 ML IV NR (09:00)
[2019-01-31] MEDS ORDERED: POTASSIUM CHLORIDE 20MEQ/PACKET PO NR (10:45)
[2019-01-31] MEDS ORDERED: MAGNESIUM 1 G PREMIX 100 ML IV NR (12:30)
[2019-01-31] MEDS: SODIUM CHLORIDE 3% FOR INH 4ML UD NEB INH SCH ×3 (13:20→23:51)
[2019-01-31 14:11] LABS: PLATELET ESTIMATE NORMAL
[2019-01-31] MEDS: ACETYLCYSTEINE 100MG/ML 10% VIAL 4ML INH SCH ×2 (16:15→23:49)
[2019-01-31] MEDS: ATORVASTATIN CALCIUM 40MG TABLET PO SCH (20:48)
[2019-01-31] MEDS ORDERED: LORAZEPAM 2MG/ML CPJ IV NR (22:30)
[2019-01-31] MEDS: ACETAMINOPHEN 325MG TABLET PO PRN (23:56)
[2019-02-01] VITALS (13 sets, daily range): BP systolic 99–153; BP diastolic 54–79
[2019-02-01] MEDS: IPRATROPIUM/ALBUTEROL 0.5-3(2.5)MG/3ML NEB HHN SCH ×5 (03:25→21:09)
[2019-02-01] MEDS: SODIUM CHLORIDE 3% FOR INH 4ML UD NEB INH SCH ×4 (03:30→21:03)
[2019-02-01] MEDS: MEROPENEM 1,000 MG in SODIUM CHLORIDE 0.9% 100 ML IV SCH ×2 (07:02→13:49)
[2019-02-01] MEDS: SUCRALFATE 1 G/10 ML UDC GT SCH ×4 (07:02→18:03)
[2019-02-01] MEDS: METOCLOPRAMIDE HCL 10MG/2ML VIAL IV SCH ×4 (07:03→18:04)
[2019-02-01] MEDS: ACETAMINOPHEN 325MG TABLET PO PRN ×2 (07:26→21:41)
[2019-02-01 08:11] LABS: HEMATOCRIT. 28.1 % (42.0-52.0); HEMOGLOBIN. 8.9 g/dL (14.0-18.0); MEAN CORPUSCULAR HEMOGLOBIN 25.6 pg (28.0-32.0); RED BLOOD CELL COUNT 3.47 mill/uL (4.7-6.1); RED CELL DISTRIBUTION WIDTH 19.5 % (11.6-14.6)
[2019-02-01] MEDS: ACETYLCYSTEINE 100MG/ML 10% VIAL 4ML INH SCH ×2 (08:57→17:10)
[2019-02-01] MEDS ORDERED: POTASSIUM CHLORIDE 20MEQ/PACKET PO SCH (09:00)
[2019-02-01 09:21] LABS: PHOSPHORUS 1.8 mg/dL (2.5-4.9)
[2019-02-01 09:22] LABS: CHLORIDE 105 mEq/L (98-107)
[2019-02-01] MEDS: PANTOPRAZOLE SODIUM 40 MG/VIAL IV SCH ×2 (09:41→18:04)
[2019-02-01] MEDS: AMIODARONE HCL 200 MG TABLET PO SCH (09:41)
[2019-02-01] MEDS: FUROSEMIDE 40MG/4ML VIAL IVP SCH (09:41)
[2019-02-01] MEDS: CARVEDILOL 6.25 MG TABLET PO SCH ×2 (09:42→21:12)
[2019-02-01] MEDS: AMLODIPINE 5MG TABLET PO SCH ×2 (09:42→21:11)
[2019-02-01 09:49] LABS: PLATELET 324 x1000/uL (130-400)
[2019-02-01 09:52] LABS: PLATELET ESTIMATE NORMAL
[2019-02-01] MEDS: DEXT 5%/0.45% NACL 1000ML 1,000 ML IV SCH (10:00)
[2019-02-01] MEDS: LEVETIRACETAM 500 MG in SODIUM CHLORIDE 0.9% 100 ML IV SCH (10:24)
[2019-02-01] MEDS ORDERED: SODIUM PHOS,M-BASIC-D-BASIC 15 MM in DEXT 5% WATER 245 ML IV NR (11:00)
[2019-02-01] MEDS: BLOOD SUGAR DIAGNOSTIC STRIP TEST SCH ×2 (12:00→18:04)
[2019-02-01] MEDS: SULFAMETHOXAZOLE/TRIMETHOPRIM 800/160MG TABLET PO SCH ×2 (15:57→21:10)
[2019-02-01] MEDS ORDERED: COLISTIMETHATE SODIUM 150MG/VIAL INH SCH (18:00)
[2019-02-01] MEDS ORDERED: GENTAMICIN SULFATE 180 MG in SODIUM CHLORIDE 0.9% 100 ML IV SCH (18:00)
[2019-02-01] MEDS ORDERED: LEVETIRACETAM 750 MG in SODIUM CHLORIDE 0.9% 100 ML IV SCH (21:00)
[2019-02-01] MEDS: ATORVASTATIN CALCIUM 40MG TABLET PO SCH (21:11)
[2019-02-04 15:06] LABS: BARBITURATE SCREEN Negative ug/mL (Cutoff:0.1); BENZODIAZEPINE SCREEN Negative ng/mL (Cutoff:20); OPIATES SCREEN Negative ng/mL (Cutoff:5); PHENCYCLIDINE SCREEN Negative ng/mL (Cutoff:8)
== END 2019-02-01 22:00 | DRG 870 ==
LOC: ER 14:16 → 5EST 16:50 → ENRESERV 20:56
PROVIDERS: ADMIT Family Medicine Adult Medicine; ATTEND Family Medicine Adult Medicine
PROC: 5A1955Z Respiratory Ventilation, Greater than 96 Consecutive Hours (ICD-10-PCS; 2019-01-26)
PROC: 30233N1 Transfusion of Nonautologous Red Blood Cells into Peripheral Vein, Percutaneous Approach (ICD-10-PCS; 2019-01-26)
PROC: 05H333Z Insertion of Infusion Device into Right Innominate Vein, Percutaneous Approach (ICD-10-PCS; 2019-01-27)
PROC: B54MZZA Ultrasonography of Right Upper Extremity Veins, Guidance (ICD-10-PCS; 2019-01-27)
PROC: 3E0G8GC Introduction of Other Therapeutic Substance into Upper GI, Via Natural or Artificial Opening Endoscopic (ICD-10-PCS; 2019-01-27)
PROC: 0W3P8ZZ Control Bleeding in Gastrointestinal Tract, Via Natural or Artificial Opening Endoscopic (ICD-10-PCS; principal; 2019-01-28)
DX: A41.9 Sepsis, unspecified organism (principal); K26.4 Chronic or unspecified duodenal ulcer with hemorrhage; E43 Unspecified severe protein-calorie malnutrition; G92 Toxic encephalopathy; J18.1 Lobar pneumonia, unspecified organism; J96.20 Acute and chronic respiratory failure, unspecified whether with hypoxia or hypercapnia; K25.0 Acute gastric ulcer with hemorrhage; I50.32 Chronic diastolic (congestive) heart failure; N39.0 Urinary tract infection, site not specified; Z99.11 Dependence on respirator [ventilator] status; D62 Acute posthemorrhagic anemia; I11.0 Hypertensive heart disease with heart failure; E78.5 Hyperlipidemia, unspecified; L89.90 Pressure ulcer of unspecified site, unspecified stage; K57.90 Diverticulosis of intestine, part unspecified, without perforation or abscess without bleeding; B96.1 Klebsiella pneumoniae [K. pneumoniae] as the cause of diseases classified elsewhere; B96.4 Proteus (mirabilis) (morganii) as the cause of diseases classified elsewhere; B96.89 Other specified bacterial agents as the cause of diseases classified elsewhere; E11.40 Type 2 diabetes mellitus with diabetic neuropathy, unspecified; E11.51 Type 2 diabetes mellitus with diabetic peripheral angiopathy without gangrene; E11.649 Type 2 diabetes mellitus with hypoglycemia without coma; E78.00 Pure hypercholesterolemia, unspecified; E87.6 Hypokalemia; G40.409 Other generalized epilepsy and epileptic syndromes, not intractable, without status epilepticus; I25.10 Atherosclerotic heart disease of native coronary artery without angina pectoris; I27.20 Pulmonary hypertension, unspecified; B96.20 Unspecified Escherichia coli [E. coli] as the cause of diseases classified elsewhere; Z16.12 Extended spectrum beta lactamase (ESBL) resistance; B95.2 Enterococcus as the cause of diseases classified elsewhere; Z16.21 Resistance to vancomycin; K44.9 Diaphragmatic hernia without obstruction or gangrene; K80.20 Calculus of gallbladder without cholecystitis without obstruction; T50.2X5A Adverse effect of carbonic-anhydrase inhibitors, benzothiadiazides and other diuretics, initial encounter; Y92.89 Other specified places as the place of occurrence of the external cause; Z74.01 Bed confinement status; Z93.0 Tracheostomy status; Z79.01 Long term (current) use of anticoagulants; Z86.73 Personal history of transient ischemic attack (TIA), and cerebral infarction without residual deficits; Z95.1 Presence of aortocoronary bypass graft; Z93.1 Gastrostomy status; Z68.35 Body mass index [BMI] 35.0-35.9, adult; Z79.1 Long term (current) use of non-steroidal anti-inflammatories (NSAID); Z79.899 Other long term (current) drug therapy
CPT/HCPCS: 36415; 36569; 36600; 71045; 76937; 80048; 80076; 80307; 80320; 82270; 82375; 82550; 82553; 82805; 82962; 83036; 83540; 83550; 83605; 83735; 84100; 84132; 84134; 84145; 84443; 84484; 85014; 85018; 86850; 86900; 86920; 87070; 87077; 87186; 93005; 93306; 93923; 93970; 93971; 94002; 94003; 94640; 94667; 96374; 96375; 97163; 99152; 99285; C1725; C1769; C1893; C9113; J0690; J0696; J0770; J1200; J1580; J1940; J1953; J2060; J2185; J2250; J2270; J2405; J2543; J2765; J3010; J3475; J3480; J3490; J7050; J7060; J7608; J7620; P9016; A4315; G0480; G0500

== ENCOUNTER 2019-04-24 14:40 | Inpatient (IN) | payer MEDICARE, MEDICAID ==
[~2019-04-24] VITALS: Ht 185.4 cm; Wt 95.8 kg
[2019-04-24 15:24] LABS: MEAN CORPUSCULAR HEMOGLOBIN 25.1 pg (28.0-32.0); MEAN CORPUSCULAR VOLUME 80.3 fL (80.0-94.0); MEAN PLATELET VOLUME 9.3 fl (7.4-10.4); PLATELET 265 x1000/uL (130-400); RED BLOOD CELL COUNT 2.33 mill/uL (4.7-6.1); RED CELL DISTRIBUTION WIDTH 19.9 % (11.6-14.6)
[2019-04-24 15:30] LABS: CHLORIDE 108 mEq/L (98-107); HEMATOCRIT. 18.7 % (42.0-52.0); HEMOGLOBIN. 5.8 g/dL (14.0-18.0)
[2019-04-24 15:57] LABS: PLATELET ESTIMATE NORMAL
[2019-04-24 18:06] LABS: BG BASE EXCESS 3.9 mmol/L (-2.0-2.0); BG CARBOXYHEMOGLOBIN 0.7 % (0.5-1.5); BG DEOXYHEMOGLOBIN 0.9 % (0.0-5.0); BG FRACTION INSPIRED OXYGEN 40; BG HCO3 ACT 27.6 mmol/L (22.0-26.0); BG METHEMOGLOBIN 0.5 % (0.0-1.5); BG OXYGEN SATURATION 99.1 % (92.0-98.5); BG OXYHEMOGLOBIN 97.9 % (94.0-97.0); BG PCO2 37.4 mmHg (35.0-45.0); BG PH 7.486 (7.350-7.450); BG PO2 152.2 mmHg (75.0-100.0); BG SAMPLE SITE LEFT RADIAL; BG TIDAL VOLUME(mL) 550 mL; BG TOTAL HEMOGLOBIN 7.3 g/dL (12.0-18.0); BG VENT MODE VENT - A/C; BG VENT RATE 12 set
[2019-04-24 19:23] LABS: CLARITY URINE TURBID (CLEAR); COLOR URINE DARK YELLOW (YELLOW); KETONES URINE NEGATIVE (NEGATIVE); LEUKOCYTE ESTERASE URINE 3+ (NEGATIVE); NITRITE URINE NEGATIVE (NEGATIVE); OCCULT BLOOD URINE 2+ (NEGATIVE); PROTEIN URINE 2+ (NEGATIVE)
[2019-04-24] MEDS ORDERED: DEXTROSE 50% WATER 50ML SYRINGE IV ONE (20:30)
[2019-04-24 22:00] VITALS: BP 148/51
[2019-04-24 22:10] VITALS: BP 148/51
[2019-04-24] MEDS ORDERED: FUROSEMIDE 20MG/2ML VIAL IVP NR (22:15)
[2019-04-25] VITALS (19 sets, daily range): BP systolic 97–133; BP diastolic 48–95
[2019-04-25] MEDS: IPRATROPIUM/ALBUTEROL 0.5-3(2.5)MG/3ML NEB HHN SCH ×6 (00:57→21:01)
[2019-04-25] MEDS ORDERED: OMEP20TA2 GT (03:01)
[2019-04-25] MEDS ORDERED: HYDR-4005 GT (03:01)
[2019-04-25] MEDS ORDERED: CLON0.1T GT (03:01)
[2019-04-25] MEDS ORDERED: ACET-2178 GT (03:01)
[2019-04-25] MEDS ORDERED: LEVVL SQ (03:01)
[2019-04-25] MEDS ORDERED: AMLO5TAB88 GT (03:01)
[2019-04-25] MEDS ORDERED: MULT1TAB76 GT (03:01)
[2019-04-25] MEDS ORDERED: KEPPSOL GT (03:01)
[2019-04-25] MEDS ORDERED: DOCU-138 GT (03:01)
[2019-04-25] MEDS ORDERED: ONDA4TAB5 IV (03:01)
[2019-04-25] MEDS ORDERED: ATOR40TA70 GT (03:01)
[2019-04-25] MEDS ORDERED: AMIO100T4 GT (03:01)
[2019-04-25] MEDS ORDERED: SUCR1TAB GT (03:01)
[2019-04-25] MEDS ORDERED: LEVE750T4 GT (03:01)
[2019-04-25] MEDS ORDERED: FE300LUD GT (03:01)
[2019-04-25] MEDS ORDERED: LORA-250 GT (03:01)
[2019-04-25] MEDS ORDERED: MAGN311T3 GT (03:01)
[2019-04-25] MEDS ORDERED: CARV6.2548 GT (03:01)
[2019-04-25] MEDS ORDERED: DEXTROSE 50% WATER 50ML SYRINGE IV PRN ×2 (03:15→13:00)
[2019-04-25] MEDS: INSULIN LISPRO 100 UNITS/ML SUBCUT SCH ×3 (06:40→18:00)
[2019-04-25] MEDS: BLOOD SUGAR DIAGNOSTIC STRIP TEST SCH ×3 (06:40→18:00)
[2019-04-25 10:16] LABS: BASOPHILS % 0.3 % (0.0-2.0); EOSINOPHILS % 0.8 % (0.0-5.0); MEAN CORPUSCULAR HEMOGLOBIN 25.3 pg (28.0-32.0); MEAN CORPUSCULAR VOLUME 81.6 fL (80.0-94.0); MEAN PLATELET VOLUME 9.2 fl (7.4-10.4); MONOCYTES % 4.8 % (2.0-8.0); NEUTROPHILS % 86.1 % (40.0-76.0); PLATELET 267 x1000/uL (130-400); RED BLOOD CELL COUNT 2.49 mill/uL (4.7-6.1); RED CELL DISTRIBUTION WIDTH 20.4 % (11.6-14.6)
[2019-04-25 10:19] LABS: CHLORIDE 110 mEq/L (98-107)
[2019-04-25 10:25] LABS: PHOSPHORUS 3.7 mg/dL (2.5-4.9)
[2019-04-25 10:30] LABS: HEMATOCRIT. 20.3 % (42.0-52.0); HEMOGLOBIN. 6.3 g/dL (14.0-18.0)
[2019-04-25] MEDS: AMIODARONE HCL 200 MG TABLET PO SCH (11:48)
[2019-04-25] MEDS ORDERED: SODIUM CHLORIDE 0.9% 1,000 ML IV SCH (12:00)
[2019-04-25] MEDS ORDERED: BISACODYL 5MG TABLET PO NR ×2 (12:00→18:00)
[2019-04-25] MEDS ORDERED: SORBITOL 70% SOLN 30ML PO NR ×4 (12:00→18:30)
[2019-04-25] MEDS ORDERED: METOCLOPRAMIDE HCL 10MG/2ML VIAL IV NR ×2 (12:00→18:00)
[2019-04-25] MEDS ORDERED: CLONIDINE 0.1MG TABLET PO PRN (13:00)
[2019-04-25] MEDS ORDERED: DOCUSATE SODIUM 100MG CAPSULE PO PRN (13:00)
[2019-04-25] MEDS ORDERED: HYDROCODONE/ACETAMINOPHEN 5/325MG TABLET PO PRN (13:00)
[2019-04-25] MEDS ORDERED: MAGNESIUM/ALUMINUM HYDROXIDE/SIMETHICONE 30ML UDC PO PRN (13:00)
[2019-04-25] MEDS ORDERED: LORAZEPAM 2MG/ML CPJ IV PRN (13:30)
[2019-04-25] MEDS: POLYETHYLENE GLYCOL-ELECTROLYTE 4000ML PO NR (13:48)
[2019-04-25 14:07] LABS: BG BASE EXCESS -0.4 mmol/L (-2.0-2.0); BG CARBOXYHEMOGLOBIN 0.6 % (0.5-1.5); BG DEOXYHEMOGLOBIN 6.9 % (0.0-5.0); BG FRACTION INSPIRED OXYGEN 40; BG HCO3 ACT 24.8 mmol/L (22.0-26.0); BG METHEMOGLOBIN 0.3 % (0.0-1.5); BG OXYHEMOGLOBIN 92.2 % (94.0-97.0); BG PH 7.378 (7.350-7.450); BG PO2 72.8 mmHg (75.0-100.0); BG SAMPLE SITE RIGHT BRACHIAL; BG TIDAL VOLUME(mL) 500 mL; BG VENT MODE VENT - A/C; BG VENT RATE 16 set
[2019-04-25] MEDS: ACETYLCYSTEINE 100MG/ML 10% VIAL 4ML INH SCH (14:14)
[2019-04-25] MEDS: IPRATROPIUM/ALBUTEROL 0.5-3(2.5)MG/3ML NEB HHN PRN (14:15)
[2019-04-25] MEDS ORDERED: DEXT 5%/0.45% NACL 1000ML 1,000 ML IV ONE (16:30)
[2019-04-25] MEDS ORDERED: BLOOD SUGAR DIAGNOSTIC STRIP TEST SCH (17:30)
[2019-04-25] MEDS: LEVETIRACETAM 500MG/5ML CUP GT SCH (19:06)
[2019-04-25] MEDS: METRONIDAZOLE 500 MG PREMIX 100 ML IV SCH (19:11)
[2019-04-25] MEDS: CEFTAZIDIME PENTAHYDRATE 1 G in DEXTROSE 5% WATER 50 ML IV SCH (19:11)
[2019-04-25 21:30] LABS: HEMATOCRIT 22.6 % (42.0-52.0); HEMOGLOBIN 7.1 g/dL (14.0-18.0)
[2019-04-25] MEDS: CARVEDILOL 3.125 MG TABLET PO SCH (22:09)
[2019-04-25] MEDS: ATORVASTATIN CALCIUM 40MG TABLET PO SCH (22:09)
[2019-04-26] VITALS (17 sets, daily range): BP systolic 110–152; BP diastolic 53–92
[2019-04-26] MEDS: ACETYLCYSTEINE 100MG/ML 10% VIAL 4ML INH SCH ×3 (01:38→16:45)
[2019-04-26] MEDS: IPRATROPIUM/ALBUTEROL 0.5-3(2.5)MG/3ML NEB HHN SCH ×6 (01:39→21:00)
[2019-04-26] MEDS: INSULIN LISPRO 100 UNITS/ML SUBCUT SCH ×4 (05:30→17:13)
[2019-04-26] MEDS: CEFTAZIDIME PENTAHYDRATE 1 G in DEXTROSE 5% WATER 50 ML IV SCH ×2 (05:31→17:12)
[2019-04-26] MEDS: BLOOD SUGAR DIAGNOSTIC STRIP TEST SCH ×5 (05:33→23:40)
[2019-04-26] MEDS: METRONIDAZOLE 500 MG PREMIX 100 ML IV SCH ×2 (06:13→17:12)
[2019-04-26] MEDS: POLYETHYLENE GLYCOL-ELECTROLYTE 4000ML PO NR (07:11)
[2019-04-26 07:33] LABS: HEMATOCRIT. 21.6 % (42.0-52.0); MEAN CORPUSCULAR HEMOGLOBIN 25.9 pg (28.0-32.0); MEAN CORPUSCULAR VOLUME 85.6 fL (80.0-94.0); PLATELET 250 x1000/uL (130-400); RED BLOOD CELL COUNT 2.52 mill/uL (4.7-6.1); RED CELL DISTRIBUTION WIDTH 20.2 % (11.6-14.6)
[2019-04-26 07:43] LABS: HEMOGLOBIN. 6.5 g/dL (14.0-18.0)
[2019-04-26] MEDS: AMIODARONE HCL 200 MG TABLET PO SCH (09:17)
[2019-04-26] MEDS: CARVEDILOL 3.125 MG TABLET PO SCH ×2 (09:17→20:30)
[2019-04-26] MEDS: LEVETIRACETAM 500MG/5ML CUP GT SCH ×2 (09:17→17:13)
[2019-04-26 09:33] LABS: CHLORIDE 113 mEq/L (98-107)
[2019-04-26 10:08] LABS: PLATELET ESTIMATE NORMAL
[2019-04-26] MEDS ORDERED: DEXTROSE 5% WATER 1,000 ML IV SCH (10:30)
[2019-04-26] MEDS ORDERED: LIDOCAINE HCL 1% 20ML VIAL (Pyxis) INJ ONE (10:33)
[2019-04-26] MEDS ORDERED: POTASSIUM CHLORIDE INJ 60 MEQ in DEXT 5% WATER 500 ML IV NR (11:30)
[2019-04-26] MEDS ORDERED: VANCOMYCIN 2,000 MG in DEXT 5% WATER 500 ML IV NR (17:00)
[2019-04-26] MEDS: ATORVASTATIN CALCIUM 40MG TABLET PO SCH (20:30)
[2019-04-27] VITALS (11 sets, daily range): BP systolic 97–148; BP diastolic 59–80
[2019-04-27] MEDS ORDERED: POTASSIUM CHLORIDE INJ 40 MEQ in DEXT 5% WATER 250 ML IV NR ×2
[2019-04-27] MEDS: INSULIN LISPRO 100 UNITS/ML SUBCUT SCH ×5 (00:03→21:35)
[2019-04-27] MEDS: ACETYLCYSTEINE 100MG/ML 10% VIAL 4ML INH SCH ×4 (00:18→16:07)
[2019-04-27] MEDS: IPRATROPIUM/ALBUTEROL 0.5-3(2.5)MG/3ML NEB HHN SCH ×5 (00:26→20:26)
[2019-04-27] MEDS ORDERED: VANCOMYCIN 1 G PREMIX 200 ML IV SCH (03:00)
[2019-04-27] MEDS: CEFTAZIDIME PENTAHYDRATE 1 G in DEXTROSE 5% WATER 50 ML IV SCH ×2 (04:56→18:02)
[2019-04-27] MEDS: METRONIDAZOLE 500 MG PREMIX 100 ML IV SCH ×2 (04:57→18:02)
[2019-04-27] MEDS: BLOOD SUGAR DIAGNOSTIC STRIP TEST SCH ×4 (05:04→21:00)
[2019-04-27 07:11] LABS: BASOPHILS % 0.2 % (0.0-2.0); EOSINOPHILS % 1.9 % (0.0-5.0); HEMATOCRIT. 26.9 % (42.0-52.0); HEMOGLOBIN. 8.5 g/dL (14.0-18.0); LYMPHOCYTES % 7.2 % (20.0-50.0); MEAN CORPUSCULAR HEMOGLOBIN 26.3 pg (28.0-32.0); MEAN CORPUSCULAR VOLUME 83.3 fL (80.0-94.0); MEAN PLATELET VOLUME 8.8 fl (7.4-10.4); MONOCYTES % 5.9 % (2.0-8.0); NEUTROPHILS % 84.8 % (40.0-76.0); PLATELET 287 x1000/uL (130-400); RED BLOOD CELL COUNT 3.23 mill/uL (4.7-6.1); RED CELL DISTRIBUTION WIDTH 19.2 % (11.6-14.6)
[2019-04-27 07:28] LABS: CHLORIDE 114 mEq/L (98-107)
[2019-04-27] MEDS ORDERED: POTASSIUM CHLORIDE 20MEQ/PACKET PO NR (08:00)
[2019-04-27] MEDS: AMIODARONE HCL 200 MG TABLET PO SCH (09:00)
[2019-04-27] MEDS: CARVEDILOL 3.125 MG TABLET PO SCH ×2 (09:00→21:19)
[2019-04-27] MEDS: LEVETIRACETAM 500MG/5ML CUP GT SCH ×2 (09:07→18:02)
[2019-04-27] MEDS ORDERED: ATROPINE SULFATE 1MG/10ML SYR IV ONE (09:45)
[2019-04-27] MEDS: POTASSIUM CHLORIDE INJ 30 MEQ in DEXTROSE 5% WATER 1,000 ML IV SCH (10:00)
[2019-04-27] MEDS ORDERED: ATROPINE SULFATE 1MG/10ML SYR IV PRN (11:00)
[2019-04-27] MEDS ORDERED: KCL 20MEQ/100ML PREMIX 100 ML IV NR ×2 (12:30→21:00)
[2019-04-27] MEDS: VANCOMYCIN 1250MG in DEXTROSE 5% WATER 250ML IV SCH (14:20)
[2019-04-27] MEDS: METOCLOPRAMIDE HCL 10MG/2ML VIAL IV SCH (18:03)
[2019-04-27] MEDS ORDERED: SORBITOL 70% SOLN 30ML PO NR ×2 (18:15→22:00)
[2019-04-27] MEDS: ATORVASTATIN CALCIUM 40MG TABLET PO SCH (21:19)
[2019-04-28] VITALS (12 sets, daily range): BP systolic 120–148; BP diastolic 8–83
[2019-04-28] MEDS: IPRATROPIUM/ALBUTEROL 0.5-3(2.5)MG/3ML NEB HHN SCH ×6 (00:18→20:10)
[2019-04-28] MEDS: METOCLOPRAMIDE HCL 10MG/2ML VIAL IV SCH ×4 (01:00→18:10)
[2019-04-28] MEDS: POTASSIUM CHLORIDE INJ 30 MEQ in DEXTROSE 5% WATER 1,000 ML IV SCH ×2 (02:30→17:53)
[2019-04-28] MEDS: VANCOMYCIN 1250MG in DEXTROSE 5% WATER 250ML IV SCH ×2 (02:30→13:45)
[2019-04-28] MEDS: CEFTAZIDIME PENTAHYDRATE 1 G in DEXTROSE 5% WATER 50 ML IV SCH (05:13)
[2019-04-28] MEDS ORDERED: SORBITOL 70% SOLN 30ML PO NR ×2 (06:00→21:00)
[2019-04-28 07:04] LABS: CHLORIDE 117 mEq/L (98-107)
[2019-04-28] MEDS: BLOOD SUGAR DIAGNOSTIC STRIP TEST SCH ×4 (07:48→21:00)
[2019-04-28] MEDS: ACETYLCYSTEINE 100MG/ML 10% VIAL 4ML INH SCH ×2 (08:25→16:22)
[2019-04-28] MEDS: METRONIDAZOLE 500MG TABLET GT SCH ×2 (09:39→21:46)
[2019-04-28] MEDS: LEVETIRACETAM 500MG/5ML CUP GT SCH ×2 (09:40→17:53)
[2019-04-28] MEDS: CARVEDILOL 3.125 MG TABLET PO SCH ×2 (09:40→21:47)
[2019-04-28] MEDS: INSULIN LISPRO 100 UNITS/ML SUBCUT SCH ×4 (09:42→23:01)
[2019-04-28 12:31] LABS: BASOPHILS % 0.3 % (0.0-2.0); EOSINOPHILS % 3.6 % (0.0-5.0); HEMATOCRIT. 27.2 % (42.0-52.0); HEMOGLOBIN. 8.4 g/dL (14.0-18.0); LYMPHOCYTES % 7.4 % (20.0-50.0); MEAN CORPUSCULAR VOLUME 83.5 fL (80.0-94.0); MEAN PLATELET VOLUME 8.5 fl (7.4-10.4); NEUTROPHILS % 81.7 % (40.0-76.0); PLATELET 341 x1000/uL (130-400); RED BLOOD CELL COUNT 3.25 mill/uL (4.7-6.1); RED CELL DISTRIBUTION WIDTH 19.1 % (11.6-14.6)
[2019-04-28] MEDS ORDERED: CEFTRIAXONE 1 G PREMIX 50 ML IV SCH (15:30)
[2019-04-28] MEDS ORDERED: DAPTOMYCIN 250 MG in SODIUM CHLORIDE 0.9% 50 ML IV SCH (17:00)
[2019-04-28] MEDS: ATORVASTATIN CALCIUM 40MG TABLET PO SCH (21:47)
[2019-04-28 22:11] LABS: BASOPHILS % 0.5 % (0.0-2.0); EOSINOPHILS % 3.8 % (0.0-5.0); HEMATOCRIT. 28.1 % (42.0-52.0); HEMOGLOBIN. 8.6 g/dL (14.0-18.0); LYMPHOCYTES % 7.5 % (20.0-50.0); MEAN CORPUSCULAR HEMOGLOBIN 25.6 pg (28.0-32.0); MEAN CORPUSCULAR VOLUME 83.6 fL (80.0-94.0); MEAN PLATELET VOLUME 8.4 fl (7.4-10.4); MONOCYTES % 6.5 % (2.0-8.0); NEUTROPHILS % 81.7 % (40.0-76.0); PLATELET 356 x1000/uL (130-400); RED BLOOD CELL COUNT 3.36 mill/uL (4.7-6.1); RED CELL DISTRIBUTION WIDTH 19.4 % (11.6-14.6)
[2019-04-28 22:24] LABS: CHLORIDE 114 mEq/L (98-107)
[2019-04-29] VITALS (12 sets, daily range): BP systolic 119–150; BP diastolic 68–94
[2019-04-29] MEDS ORDERED: METOCLOPRAMIDE HCL 10MG/2ML VIAL IV SCH
[2019-04-29] MEDS: IPRATROPIUM/ALBUTEROL 0.5-3(2.5)MG/3ML NEB HHN SCH ×5 (00:15→20:21)
[2019-04-29] MEDS: ACETYLCYSTEINE 100MG/ML 10% VIAL 4ML INH SCH ×3 (00:30→12:28)
[2019-04-29] MEDS: METOCLOPRAMIDE HCL 10MG/2ML VIAL IV SCH ×2 (00:41→06:00)
[2019-04-29] MEDS: POTASSIUM CHLORIDE INJ 30 MEQ in DEXTROSE 5% WATER 1,000 ML IV SCH ×2 (01:36→11:10)
[2019-04-29] MEDS ORDERED: SORBITOL 70% SOLN 30ML PO NR (03:00)
[2019-04-29] MEDS: BLOOD SUGAR DIAGNOSTIC STRIP TEST SCH ×4 (07:30→21:19)
[2019-04-29] MEDS: AMIODARONE HCL 200 MG TABLET NG SCH (08:00)
[2019-04-29 08:32] LABS: HEMATOCRIT. 29.9 % (42.0-52.0); HEMOGLOBIN. 9.1 g/dL (14.0-18.0); MEAN CORPUSCULAR HEMOGLOBIN 25.7 pg (28.0-32.0); MEAN PLATELET VOLUME 8.7 fl (7.4-10.4); PLATELET 363 x1000/uL (130-400); RED BLOOD CELL COUNT 3.56 mill/uL (4.7-6.1); RED CELL DISTRIBUTION WIDTH 19.8 % (11.6-14.6)
[2019-04-29] MEDS: LEVETIRACETAM 500MG/5ML CUP GT SCH ×2 (09:00→18:12)
[2019-04-29] MEDS: METRONIDAZOLE 500MG TABLET GT SCH ×2 (09:00→21:17)
[2019-04-29] MEDS: CARVEDILOL 3.125 MG TABLET PO SCH ×2 (09:00→21:16)
[2019-04-29] MEDS: INSULIN LISPRO 100 UNITS/ML SUBCUT SCH ×4 (09:10→21:18)
[2019-04-29 09:11] LABS: CHLORIDE 114 mEq/L (98-107)
[2019-04-29 09:20] LABS: PHOSPHORUS 2.1 mg/dL (2.5-4.9)
[2019-04-29 10:55] LABS: PLATELET ESTIMATE NORMAL
[2019-04-29] MEDS: DAPTOMYCIN 600 MG in SODIUM CHLORIDE 0.9% 50 ML IV SCH (11:24)
[2019-04-29] MEDS: IPRATROPIUM/ALBUTEROL 0.5-3(2.5)MG/3ML NEB HHN PRN (14:33)
[2019-04-29] MEDS ORDERED: BACTERIOSTATIC SODIUM CHLORIDE 0.9% 30ML VIAL IJ ONE (15:15)
[2019-04-29] MEDS ORDERED: MIDAZOLAM HCL 5 MG/5 ML VIAL IV PRN (15:58)
[2019-04-29] MEDS ORDERED: FENTANYL CITRATE/PF 50MCG/ML 2ML VIAL ONE (15:58)
[2019-04-29] MEDS ORDERED: FENTANYL CITRATE/PF 50MCG/ML 2ML VIAL IV PRN (15:58)
[2019-04-29] MEDS ORDERED: MIDAZOLAM HCL 5 MG/5 ML VIAL ONE (15:58)
[2019-04-29] MEDS: CEFTRIAXONE 1 G PREMIX 50 ML IV SCH (18:47)
[2019-04-29] MEDS: ATORVASTATIN CALCIUM 40MG TABLET PO SCH (21:16)
[2019-04-30] VITALS (15 sets, daily range): BP systolic 108–128; BP diastolic 53–81
[2019-04-30] MEDS: IPRATROPIUM/ALBUTEROL 0.5-3(2.5)MG/3ML NEB HHN SCH ×6 (00:30→20:33)
[2019-04-30] MEDS: POTASSIUM CHLORIDE INJ 30 MEQ in DEXTROSE 5% WATER 1,000 ML IV SCH ×2 (04:47→17:54)
[2019-04-30 07:43] LABS: BASOPHILS % 0.8 % (0.0-2.0); EOSINOPHILS % 2.6 % (0.0-5.0); HEMATOCRIT. 28.8 % (42.0-52.0); HEMOGLOBIN. 8.8 g/dL (14.0-18.0); LYMPHOCYTES % 9.2 % (20.0-50.0); MEAN CORPUSCULAR HEMOGLOBIN 25.8 pg (28.0-32.0); MEAN CORPUSCULAR VOLUME 84.3 fL (80.0-94.0); MEAN PLATELET VOLUME 8.5 fl (7.4-10.4); MONOCYTES % 4.6 % (2.0-8.0); NEUTROPHILS % 82.8 % (40.0-76.0); PLATELET 343 x1000/uL (130-400); RED BLOOD CELL COUNT 3.42 mill/uL (4.7-6.1); RED CELL DISTRIBUTION WIDTH 19.4 % (11.6-14.6)
[2019-04-30] MEDS: INSULIN LISPRO 100 UNITS/ML SUBCUT SCH ×3 (08:00→17:34)
[2019-04-30] MEDS: BLOOD SUGAR DIAGNOSTIC STRIP TEST SCH ×3 (08:11→17:53)
[2019-04-30 08:16] LABS: CHLORIDE 113 mEq/L (98-107)
[2019-04-30] MEDS: ACETYLCYSTEINE 100MG/ML 10% VIAL 4ML INH SCH ×2 (08:39→16:44)
[2019-04-30] MEDS: AMIODARONE HCL 200 MG TABLET NG SCH (08:57)
[2019-04-30] MEDS: LEVETIRACETAM 500MG/5ML CUP GT SCH ×2 (08:58→17:35)
[2019-04-30] MEDS: CARVEDILOL 3.125 MG TABLET PO SCH ×2 (08:58→22:16)
[2019-04-30] MEDS: METRONIDAZOLE 500MG TABLET GT SCH ×2 (08:58→22:15)
[2019-04-30 10:52] LABS: INR 1.4; PROTHROMBIN TIME 14.1 sec (9.6-11.0)
[2019-04-30 11:01] LABS: BG BASE EXCESS 2.6 mmol/L (-2.0-2.0); BG CARBOXYHEMOGLOBIN 0.3 % (0.5-1.5); BG DEOXYHEMOGLOBIN 0.3 % (0.0-5.0); BG FRACTION INSPIRED OXYGEN 50; BG HCO3 ACT 26.2 mmol/L (22.0-26.0); BG METHEMOGLOBIN 0.3 % (0.0-1.5); BG OXYGEN SATURATION 99.7 % (92.0-98.5); BG OXYHEMOGLOBIN 99.1 % (94.0-97.0); BG PCO2 36.5 mmHg (35.0-45.0); BG PH 7.474 (7.350-7.450); BG PO2 467.4 mmHg (75.0-100.0); BG SAMPLE SITE RIGHT RADIAL; BG TIDAL VOLUME(mL) 500 mL; BG TOTAL HEMOGLOBIN 9.9 g/dL (12.0-18.0); BG VENT MODE VENT - A/C; BG VENT RATE 16 set
[2019-04-30 11:23] LABS: TOTAL IRON BINDING CAPACITY 106 ug/dL (250-450)
[2019-04-30 11:44] LABS: FOLIC ACID (FOLATE) SERUM 16.8 ng/mL (>5.38)
[2019-04-30] MEDS: DAPTOMYCIN 600 MG in SODIUM CHLORIDE 0.9% 50 ML IV SCH (13:00)
[2019-04-30] MEDS: CEFTRIAXONE 1 G PREMIX 50 ML IV SCH (17:34)
[2019-04-30] MEDS ORDERED: KCL 20MEQ/100ML PREMIX 100 ML IV NR (18:00)
[2019-04-30] MEDS: ATORVASTATIN CALCIUM 40MG TABLET PO SCH (22:14)
[2019-05-01] VITALS (10 sets, daily range): BP systolic 110–147; BP diastolic 64–79
[2019-05-01] MEDS: IPRATROPIUM/ALBUTEROL 0.5-3(2.5)MG/3ML NEB HHN SCH ×6 (00:25→21:41)
[2019-05-01] MEDS: INSULIN LISPRO 100 UNITS/ML SUBCUT SCH ×4 (00:29→18:11)
[2019-05-01] MEDS: BLOOD SUGAR DIAGNOSTIC STRIP TEST SCH ×4 (06:25→18:00)
[2019-05-01 07:12] LABS: HEMATOCRIT. 28.6 % (42.0-52.0); HEMOGLOBIN. 8.7 g/dL (14.0-18.0); MEAN CORPUSCULAR HEMOGLOBIN 25.7 pg (28.0-32.0); MEAN CORPUSCULAR VOLUME 84.4 fL (80.0-94.0); RED BLOOD CELL COUNT 3.38 mill/uL (4.7-6.1); RED CELL DISTRIBUTION WIDTH 19.5 % (11.6-14.6)
[2019-05-01 08:14] LABS: CHLORIDE 112 mEq/L (98-107)
[2019-05-01] MEDS: AMIODARONE HCL 200 MG TABLET NG SCH (08:38)
[2019-05-01] MEDS: METRONIDAZOLE 500MG TABLET GT SCH ×2 (08:38→21:23)
[2019-05-01] MEDS: LEVETIRACETAM 500MG/5ML CUP GT SCH ×2 (08:38→18:07)
[2019-05-01] MEDS: CARVEDILOL 3.125 MG TABLET PO SCH ×2 (08:38→21:24)
[2019-05-01 09:14] LABS: PLATELET 323 x1000/uL (130-400)
[2019-05-01] MEDS: DAPTOMYCIN 600 MG in SODIUM CHLORIDE 0.9% 50 ML IV SCH (11:32)
[2019-05-01] MEDS: METOCLOPRAMIDE HCL 10MG/2ML VIAL IV SCH ×2 (13:10→18:07)
[2019-05-01] MEDS: CEFTRIAXONE 1 G PREMIX 50 ML IV SCH (18:07)
[2019-05-01] MEDS: ATORVASTATIN CALCIUM 40MG TABLET PO SCH (21:23)
[2019-05-02] VITALS (13 sets, daily range): BP systolic 125–161; BP diastolic 62–98
[2019-05-02] MEDS: METOCLOPRAMIDE HCL 10MG/2ML VIAL IV SCH ×5 (00:27→23:40)
[2019-05-02] MEDS: BLOOD SUGAR DIAGNOSTIC STRIP TEST SCH ×5 (00:34→23:37)
[2019-05-02] MEDS: INSULIN LISPRO 100 UNITS/ML SUBCUT SCH ×5 (00:39→23:41)
[2019-05-02] MEDS: IPRATROPIUM/ALBUTEROL 0.5-3(2.5)MG/3ML NEB HHN SCH ×6 (01:14→21:04)
[2019-05-02 07:30] LABS: EOSINOPHILS % 3.2 % (0.0-5.0); HEMATOCRIT. 30.4 % (42.0-52.0); HEMOGLOBIN. 9.5 g/dL (14.0-18.0); LYMPHOCYTES % 10.7 % (20.0-50.0); MEAN CORPUSCULAR VOLUME 83.7 fL (80.0-94.0); MEAN PLATELET VOLUME 9.1 fl (7.4-10.4); MONOCYTES % 6.5 % (2.0-8.0); NEUTROPHILS % 78.6 % (40.0-76.0); PLATELET 336 x1000/uL (130-400); RED BLOOD CELL COUNT 3.64 mill/uL (4.7-6.1); RED CELL DISTRIBUTION WIDTH 19.5 % (11.6-14.6)
[2019-05-02 08:15] LABS: CHLORIDE 112 mEq/L (98-107)
[2019-05-02] MEDS: AMIODARONE HCL 200 MG TABLET NG SCH (08:22)
[2019-05-02] MEDS: ASCORBIC ACID 500 MG TABLET PO SCH (08:22)
[2019-05-02] MEDS: CARVEDILOL 3.125 MG TABLET PO SCH ×2 (08:22→20:54)
[2019-05-02] MEDS: ZINC SULFATE 220 MG ( 50 ) CAPSULE PO SCH (08:22)
[2019-05-02] MEDS: LEVETIRACETAM 500MG/5ML CUP GT SCH ×2 (08:22→17:29)
[2019-05-02 08:23] LABS: PHOSPHORUS 2.8 mg/dL (2.5-4.9)
[2019-05-02] MEDS: METRONIDAZOLE 500MG TABLET GT SCH ×2 (08:23→20:54)
[2019-05-02] MEDS: DAPTOMYCIN 600 MG in SODIUM CHLORIDE 0.9% 50 ML IV SCH (12:42)
[2019-05-02] MEDS: CEFTRIAXONE 1 G PREMIX 50 ML IV SCH (17:29)
[2019-05-02] MEDS: ATORVASTATIN CALCIUM 40MG TABLET PO SCH (20:54)
[2019-05-02] MEDS: ACETAMINOPHEN 325MG TABLET PO PRN (20:54)
[2019-05-03] VITALS (12 sets, daily range): BP systolic 126–148; BP diastolic 60–78
[2019-05-03] MEDS: IPRATROPIUM/ALBUTEROL 0.5-3(2.5)MG/3ML NEB HHN SCH ×6 (00:56→20:27)
[2019-05-03] MEDS: METOCLOPRAMIDE HCL 10MG/2ML VIAL IV SCH ×3 (05:42→18:01)
[2019-05-03] MEDS: INSULIN LISPRO 100 UNITS/ML SUBCUT SCH ×3 (05:43→18:00)
[2019-05-03] MEDS: BLOOD SUGAR DIAGNOSTIC STRIP TEST SCH ×3 (05:44→18:01)
[2019-05-03 07:33] LABS: BASOPHILS % 1.1 % (0.0-2.0); EOSINOPHILS % 2.9 % (0.0-5.0); HEMOGLOBIN. 8.5 g/dL (14.0-18.0); LYMPHOCYTES % 11.5 % (20.0-50.0); MEAN CORPUSCULAR VOLUME 82.9 fL (80.0-94.0); MEAN PLATELET VOLUME 9.1 fl (7.4-10.4); MONOCYTES % 5.9 % (2.0-8.0); NEUTROPHILS % 78.6 % (40.0-76.0); PLATELET 329 x1000/uL (130-400); RED BLOOD CELL COUNT 3.26 mill/uL (4.7-6.1); RED CELL DISTRIBUTION WIDTH 19.2 % (11.6-14.6)
[2019-05-03 07:40] LABS: CHLORIDE 111 mEq/L (98-107)
[2019-05-03 07:46] LABS: PHOSPHORUS 2.4 mg/dL (2.5-4.9)
[2019-05-03] MEDS: AMIODARONE HCL 200 MG TABLET NG SCH (08:42)
[2019-05-03] MEDS: LEVETIRACETAM 500MG/5ML CUP GT SCH ×2 (08:42→18:00)
[2019-05-03] MEDS: ASCORBIC ACID 500 MG TABLET PO SCH (08:43)
[2019-05-03] MEDS: CARVEDILOL 3.125 MG TABLET PO SCH ×2 (08:43→20:36)
[2019-05-03] MEDS: ZINC SULFATE 220 MG ( 50 ) CAPSULE PO SCH (08:43)
[2019-05-03] MEDS: DAPTOMYCIN 600 MG in SODIUM CHLORIDE 0.9% 50 ML IV SCH (11:51)
[2019-05-03] MEDS ORDERED: POTASSIUM PHOS,M-BASIC-D-BASIC 15 MMOL in DEXT 5% WATER 245 ML IV SCH (12:00)
[2019-05-03] MEDS: CEFTRIAXONE 1 G PREMIX 50 ML IV SCH (18:00)
[2019-05-03] MEDS: ACETAMINOPHEN 325MG TABLET PO PRN (18:11)
[2019-05-03] MEDS: ATORVASTATIN CALCIUM 40MG TABLET PO SCH (20:36)
[2019-05-04] VITALS (12 sets, daily range): BP systolic 121–153; BP diastolic 65–83
[2019-05-04] MEDS: METOCLOPRAMIDE HCL 10MG/2ML VIAL IV SCH ×5 (00:15→23:06)
[2019-05-04] MEDS: BLOOD SUGAR DIAGNOSTIC STRIP TEST SCH ×5 (00:17→23:03)
[2019-05-04] MEDS: INSULIN LISPRO 100 UNITS/ML SUBCUT SCH ×5 (00:17→23:08)
[2019-05-04] MEDS: IPRATROPIUM/ALBUTEROL 0.5-3(2.5)MG/3ML NEB HHN SCH ×6 (00:41→20:09)
[2019-05-04 07:06] LABS: BASOPHILS % 1.1 % (0.0-2.0); EOSINOPHILS % 2.7 % (0.0-5.0); HEMOGLOBIN. 9.3 g/dL (14.0-18.0); LYMPHOCYTES % 12.1 % (20.0-50.0); MEAN CORPUSCULAR HEMOGLOBIN 26.4 pg (28.0-32.0); MEAN CORPUSCULAR VOLUME 82.2 fL (80.0-94.0); MEAN PLATELET VOLUME 9.6 fl (7.4-10.4); MONOCYTES % 6.8 % (2.0-8.0); NEUTROPHILS % 77.3 % (40.0-76.0); PLATELET 311 x1000/uL (130-400); RED BLOOD CELL COUNT 3.53 mill/uL (4.7-6.1); RED CELL DISTRIBUTION WIDTH 19.3 % (11.6-14.6)
[2019-05-04 07:26] LABS: CHLORIDE 110 mEq/L (98-107)
[2019-05-04 07:38] LABS: PHOSPHORUS 2.8 mg/dL (2.5-4.9)
[2019-05-04] MEDS: LEVETIRACETAM 500MG/5ML CUP GT SCH ×2 (09:38→16:28)
[2019-05-04] MEDS: AMIODARONE HCL 200 MG TABLET NG SCH (09:38)
[2019-05-04] MEDS: ZINC SULFATE 220 MG ( 50 ) CAPSULE PO SCH (09:39)
[2019-05-04] MEDS: ASCORBIC ACID 500 MG TABLET PO SCH (09:39)
[2019-05-04] MEDS: CARVEDILOL 3.125 MG TABLET PO SCH ×2 (09:40→20:27)
[2019-05-04] MEDS: DAPTOMYCIN 600 MG in SODIUM CHLORIDE 0.9% 50 ML IV SCH (11:03)
[2019-05-04] MEDS ORDERED: CLONIDINE 0.1MG TABLET PO PRN (14:30)
[2019-05-04] MEDS: AMLODIPINE 2.5MG TABLET PO SCH ×2 (14:30→20:26)
[2019-05-04] MEDS: CEFTRIAXONE 1 G PREMIX 50 ML IV SCH (17:19)
[2019-05-04] MEDS: ATORVASTATIN CALCIUM 40MG TABLET PO SCH (20:24)
[2019-05-04] MEDS ORDERED: INSULIN GLARGINE UD 100 UNITS/ML SYR SUBCUT SCH (22:00)
[2019-05-05] VITALS: BP 125/65
[2019-05-05] MEDS: IPRATROPIUM/ALBUTEROL 0.5-3(2.5)MG/3ML NEB HHN SCH ×5 (00:18→23:42)
[2019-05-05] MEDS: ACETAMINOPHEN 325MG TABLET PO PRN ×3 (00:22→21:17)
[2019-05-05 02:00] VITALS: BP 130/71
[2019-05-05 04:00] VITALS: BP 102/59
[2019-05-05] MEDS: BLOOD SUGAR DIAGNOSTIC STRIP TEST SCH ×4 (05:21→23:07)
[2019-05-05] MEDS: METOCLOPRAMIDE HCL 10MG/2ML VIAL IV SCH ×4 (05:21→23:07)
[2019-05-05 06:00] VITALS: BP 102/61
[2019-05-05] MEDS: INSULIN LISPRO 100 UNITS/ML SUBCUT SCH ×4 (06:08→23:18)
[2019-05-05 07:32] LABS: CHLORIDE 108 mEq/L (98-107)
[2019-05-05 07:44] LABS: BASOPHILS % 0.7 % (0.0-2.0); EOSINOPHILS % 2.1 % (0.0-5.0); HEMATOCRIT. 30.7 % (42.0-52.0); HEMOGLOBIN. 9.4 g/dL (14.0-18.0); LYMPHOCYTES % 8.5 % (20.0-50.0); MEAN CORPUSCULAR HEMOGLOBIN 25.3 pg (28.0-32.0); MEAN CORPUSCULAR VOLUME 82.7 fL (80.0-94.0); MEAN PLATELET VOLUME 9.5 fl (7.4-10.4); MONOCYTES % 5.9 % (2.0-8.0); NEUTROPHILS % 82.8 % (40.0-76.0); PLATELET 276 x1000/uL (130-400); RED BLOOD CELL COUNT 3.71 mill/uL (4.7-6.1); RED CELL DISTRIBUTION WIDTH 19.7 % (11.6-14.6)
[2019-05-05] MEDS: ASCORBIC ACID 500 MG TABLET PO SCH (08:40)
[2019-05-05] MEDS: ZINC SULFATE 220 MG ( 50 ) CAPSULE PO SCH (08:40)
[2019-05-05] MEDS: AMIODARONE HCL 200 MG TABLET NG SCH (08:40)
[2019-05-05] MEDS: AMLODIPINE 2.5MG TABLET PO SCH ×2 (08:41→21:03)
[2019-05-05] MEDS: CARVEDILOL 3.125 MG TABLET PO SCH ×2 (08:42→21:03)
[2019-05-05] MEDS: LEVETIRACETAM 500MG/5ML CUP GT SCH ×2 (08:42→15:56)
[2019-05-05] MEDS: DAPTOMYCIN 600 MG in SODIUM CHLORIDE 0.9% 50 ML IV SCH ×2 (11:00→15:56)
[2019-05-05] MEDS ORDERED: LIDOCAINE HCL 1% 20ML VIAL (Pyxis) INJ ONE (12:16)
[2019-05-05] MEDS ORDERED: SODIUM BICARBONATE 4% (2.4MEQ) 5ML VIAL IV ONE (12:16)
[2019-05-05] MEDS ORDERED: DAPTOMYCIN 600 MG in SODIUM CHLORIDE 0.9% 50 ML IV SCH (14:30)
[2019-05-05] MEDS: METRONIDAZOLE 500MG TABLET GT SCH ×2 (15:56→22:33)
[2019-05-05] MEDS: CEFTRIAXONE 1 G PREMIX 50 ML IV SCH (17:23)
[2019-05-05 20:00] VITALS: BP 134/66
[2019-05-05] MEDS: ATORVASTATIN CALCIUM 40MG TABLET PO SCH (21:03)
[2019-05-05 22:00] VITALS: BP 135/74
[2019-05-05] MEDS: INSULIN GLARGINE UD 100 UNITS/ML SYR SUBCUT SCH (23:19)
[2019-05-05] MEDS: ACETYLCYSTEINE 100MG/ML 10% VIAL 4ML INH SCH (23:42)
[2019-05-06] VITALS (20 sets, daily range): BP systolic 65–163; BP diastolic 37–126
[2019-05-06] MEDS: IPRATROPIUM/ALBUTEROL 0.5-3(2.5)MG/3ML NEB HHN SCH ×4 (04:03→20:37)
[2019-05-06] MEDS: BLOOD SUGAR DIAGNOSTIC STRIP TEST SCH ×3 (05:21→18:00)
[2019-05-06] MEDS: METOCLOPRAMIDE HCL 10MG/2ML VIAL IV SCH ×4 (05:37→23:56)
[2019-05-06] MEDS: DIPHENHYDRAMINE 50MG/ML VIAL IV PRN (05:38)
[2019-05-06] MEDS: INSULIN LISPRO 100 UNITS/ML SUBCUT SCH ×3 (05:39→18:00)
[2019-05-06 06:13] LABS: BASOPHILS % 0.7 % (0.0-2.0); EOSINOPHILS % 1.9 % (0.0-5.0); HEMATOCRIT. 27.7 % (42.0-52.0); HEMOGLOBIN. 8.7 g/dL (14.0-18.0); LYMPHOCYTES % 9.6 % (20.0-50.0); MEAN CORPUSCULAR HEMOGLOBIN 25.9 pg (28.0-32.0); MEAN CORPUSCULAR VOLUME 82.4 fL (80.0-94.0); MONOCYTES % 6.2 % (2.0-8.0); NEUTROPHILS % 81.6 % (40.0-76.0); PLATELET 332 x1000/uL (130-400); RED BLOOD CELL COUNT 3.36 mill/uL (4.7-6.1); RED CELL DISTRIBUTION WIDTH 19.6 % (11.6-14.6)
[2019-05-06 06:16] LABS: CHLORIDE 109 mEq/L (98-107)
[2019-05-06 08:24] LABS: CLARITY URINE TURBID (CLEAR); COLOR URINE YELLOW (YELLOW); KETONES URINE NEGATIVE (NEGATIVE); LEUKOCYTE ESTERASE URINE 3+ (NEGATIVE); NITRITE URINE NEGATIVE (NEGATIVE); OCCULT BLOOD URINE TRACE (NEGATIVE); PROTEIN URINE 2+ (NEGATIVE); SPECIFIC GRAVITY URINE 1.018 (1.005-1.030); UROBILINOGEN URINE 0.2 E.U./dL (0.2-1.0)
[2019-05-06] MEDS: METRONIDAZOLE 500MG TABLET GT SCH ×2 (09:52→21:09)
[2019-05-06] MEDS: LEVETIRACETAM 500MG/5ML CUP GT SCH ×2 (09:52→18:13)
[2019-05-06] MEDS: CARVEDILOL 3.125 MG TABLET PO SCH ×2 (09:54→21:00)
[2019-05-06] MEDS: ZINC SULFATE 220 MG ( 50 ) CAPSULE PO SCH (09:55)
[2019-05-06] MEDS: ASCORBIC ACID 500 MG TABLET PO SCH (09:55)
[2019-05-06] MEDS: AMIODARONE HCL 200 MG TABLET NG SCH (10:07)
[2019-05-06] MEDS: AMLODIPINE 2.5MG TABLET PO SCH ×2 (10:08→21:00)
[2019-05-06] MEDS: INSULIN GLARGINE UD 100 UNITS/ML SYR SUBCUT SCH (10:13)
[2019-05-06] MEDS: ACETYLCYSTEINE 100MG/ML 10% VIAL 4ML INH SCH (15:25)
[2019-05-06] MEDS: DAPTOMYCIN 600 MG in SODIUM CHLORIDE 0.9% 50 ML IV SCH (18:12)
[2019-05-06] MEDS: CEFTRIAXONE 1 G PREMIX 50 ML IV SCH (18:12)
[2019-05-06] MEDS: ACETAMINOPHEN 325MG TABLET PO PRN (19:32)
[2019-05-06] MEDS: ATORVASTATIN CALCIUM 40MG TABLET PO SCH (21:09)
[2019-05-07] VITALS (12 sets, daily range): BP systolic 98–157; BP diastolic 58–95
[2019-05-07] MEDS: CEFEPIME 1,000 MG in DEXTROSE 5% WATER 50 ML IV SCH ×3 (00:07→22:13)
[2019-05-07] MEDS: INSULIN LISPRO 100 UNITS/ML SUBCUT SCH ×5 (00:09→23:55)
[2019-05-07] MEDS: INSULIN GLARGINE UD 100 UNITS/ML SYR SUBCUT SCH ×3 (00:11→22:21)
[2019-05-07] MEDS: IPRATROPIUM/ALBUTEROL 0.5-3(2.5)MG/3ML NEB HHN SCH ×6 (00:47→20:22)
[2019-05-07] MEDS: ACETYLCYSTEINE 100MG/ML 10% VIAL 4ML INH SCH ×3 (00:48→16:08)
[2019-05-07] MEDS: BLOOD SUGAR DIAGNOSTIC STRIP TEST SCH ×5 (05:06→23:55)
[2019-05-07] MEDS: METOCLOPRAMIDE HCL 10MG/2ML VIAL IV SCH ×4 (05:06→23:54)
[2019-05-07 06:18] LABS: BASOPHILS % 0.7 % (0.0-2.0); EOSINOPHILS % 1.6 % (0.0-5.0); HEMATOCRIT. 28.5 % (42.0-52.0); HEMOGLOBIN. 8.8 g/dL (14.0-18.0); LYMPHOCYTES % 9.6 % (20.0-50.0); MEAN CORPUSCULAR HEMOGLOBIN 25.8 pg (28.0-32.0); MEAN CORPUSCULAR VOLUME 83.7 fL (80.0-94.0); MEAN PLATELET VOLUME 10.2 fl (7.4-10.4); MONOCYTES % 7.7 % (2.0-8.0); NEUTROPHILS % 80.4 % (40.0-76.0); PLATELET 305 x1000/uL (130-400); RED CELL DISTRIBUTION WIDTH 19.4 % (11.6-14.6)
[2019-05-07 07:30] LABS: CHLORIDE 109 mEq/L (98-107)
[2019-05-07] MEDS: AMLODIPINE 2.5MG TABLET PO SCH ×3 (09:00→20:38)
[2019-05-07] MEDS: LEVETIRACETAM 500MG/5ML CUP GT SCH ×2 (09:09→16:49)
[2019-05-07] MEDS: ZINC SULFATE 220 MG ( 50 ) CAPSULE PO SCH (09:09)
[2019-05-07] MEDS: AMIODARONE HCL 200 MG TABLET NG SCH (09:09)
[2019-05-07] MEDS: METRONIDAZOLE 500MG TABLET GT SCH ×2 (09:09→20:37)
[2019-05-07] MEDS: CARVEDILOL 3.125 MG TABLET PO SCH ×2 (09:09→20:38)
[2019-05-07] MEDS: ASCORBIC ACID 500 MG TABLET PO SCH (09:13)
[2019-05-07] MEDS ORDERED: SODIUM POLYSTYRENE SULFONATE 15 G/60 ML BOT PEG SCH (10:00)
[2019-05-07] MEDS: DAPTOMYCIN 600 MG in SODIUM CHLORIDE 0.9% 50 ML IV SCH (15:21)
[2019-05-07] MEDS: ATORVASTATIN CALCIUM 40MG TABLET PO SCH (20:37)
[2019-05-08] VITALS (12 sets, daily range): BP systolic 93–151; BP diastolic 59–76
[2019-05-08] MEDS: ACETYLCYSTEINE 100MG/ML 10% VIAL 4ML INH SCH ×3 (00:13→16:36)
[2019-05-08] MEDS: IPRATROPIUM/ALBUTEROL 0.5-3(2.5)MG/3ML NEB HHN SCH ×6 (00:13→20:28)
[2019-05-08] MEDS: ACETAMINOPHEN 325MG TABLET PO PRN ×2 (04:09→22:37)
[2019-05-08 05:24] LABS: BASOPHILS % 0.9 % (0.0-2.0); EOSINOPHILS % 1.2 % (0.0-5.0); HEMATOCRIT. 26.6 % (42.0-52.0); HEMOGLOBIN. 8.2 g/dL (14.0-18.0); MEAN CORPUSCULAR HEMOGLOBIN 25.8 pg (28.0-32.0); MEAN PLATELET VOLUME 10.5 fl (7.4-10.4); MONOCYTES % 9.6 % (2.0-8.0); NEUTROPHILS % 78.3 % (40.0-76.0); PLATELET 258 x1000/uL (130-400); RED BLOOD CELL COUNT 3.16 mill/uL (4.7-6.1); RED CELL DISTRIBUTION WIDTH 19.9 % (11.6-14.6)
[2019-05-08] MEDS: METOCLOPRAMIDE HCL 10MG/2ML VIAL IV SCH ×4 (05:35→22:38)
[2019-05-08] MEDS: BLOOD SUGAR DIAGNOSTIC STRIP TEST SCH ×4 (05:35→23:59)
[2019-05-08] MEDS: INSULIN LISPRO 100 UNITS/ML SUBCUT SCH ×4 (05:41→23:38)
[2019-05-08 06:25] LABS: CHLORIDE 113 mEq/L (98-107)
[2019-05-08] MEDS: ZINC SULFATE 220 MG ( 50 ) CAPSULE PO SCH (08:26)
[2019-05-08] MEDS: AMIODARONE HCL 200 MG TABLET NG SCH (08:27)
[2019-05-08] MEDS: ASCORBIC ACID 500 MG TABLET PO SCH (08:27)
[2019-05-08] MEDS: CARVEDILOL 3.125 MG TABLET PO SCH ×2 (08:28→22:37)
[2019-05-08] MEDS: AMLODIPINE 2.5MG TABLET PO SCH ×2 (08:28→22:37)
[2019-05-08] MEDS: LEVETIRACETAM 500MG/5ML CUP GT SCH ×2 (08:29→17:45)
[2019-05-08] MEDS: METRONIDAZOLE 500MG TABLET GT SCH ×2 (08:29→22:37)
[2019-05-08] MEDS: INSULIN GLARGINE UD 100 UNITS/ML SYR SUBCUT SCH ×2 (08:53→23:37)
[2019-05-08] MEDS ORDERED: SODIUM POLYSTYRENE SULFONATE 15 G/60 ML BOT PO NR (09:00)
[2019-05-08] MEDS: CEFEPIME 1,000 MG in DEXTROSE 5% WATER 50 ML IV SCH ×2 (11:14→22:36)
[2019-05-08] MEDS: DAPTOMYCIN 600 MG in SODIUM CHLORIDE 0.9% 50 ML IV SCH (17:44)
[2019-05-08] MEDS: ATORVASTATIN CALCIUM 40MG TABLET PO SCH (22:37)
[2019-05-09] VITALS (12 sets, daily range): BP systolic 102–154; BP diastolic 59–78
[2019-05-09] MEDS: IPRATROPIUM/ALBUTEROL 0.5-3(2.5)MG/3ML NEB HHN SCH ×6 (00:06→20:32)
[2019-05-09] MEDS: ACETYLCYSTEINE 100MG/ML 10% VIAL 4ML INH SCH ×2 (00:06→08:52)
[2019-05-09 05:41] LABS: BASOPHILS % 1.1 % (0.0-2.0); EOSINOPHILS % 2.5 % (0.0-5.0); HEMATOCRIT. 29.2 % (42.0-52.0); HEMOGLOBIN. 9.1 g/dL (14.0-18.0); LYMPHOCYTES % 9.3 % (20.0-50.0); MEAN CORPUSCULAR HEMOGLOBIN 25.9 pg (28.0-32.0); MEAN CORPUSCULAR VOLUME 83.4 fL (80.0-94.0); MEAN PLATELET VOLUME 10.2 fl (7.4-10.4); MONOCYTES % 9.9 % (2.0-8.0); NEUTROPHILS % 77.2 % (40.0-76.0); PLATELET 295 x1000/uL (130-400); RED CELL DISTRIBUTION WIDTH 19.4 % (11.6-14.6)
[2019-05-09] MEDS: BLOOD SUGAR DIAGNOSTIC STRIP TEST SCH ×3 (06:00→17:18)
[2019-05-09 06:27] LABS: CHLORIDE 115 mEq/L (98-107)
[2019-05-09 06:36] LABS: PHOSPHORUS 2.9 mg/dL (2.5-4.9)
[2019-05-09] MEDS: AMLODIPINE 2.5MG TABLET PO SCH ×2 (09:00→22:28)
[2019-05-09] MEDS: DEXTROSE 5% WATER 1,000 ML IV SCH (09:13)
[2019-05-09] MEDS: LEVETIRACETAM 500MG/5ML CUP GT SCH ×2 (09:14→17:17)
[2019-05-09] MEDS: METRONIDAZOLE 500MG TABLET GT SCH ×2 (09:16→21:00)
[2019-05-09] MEDS: ASCORBIC ACID 500 MG TABLET PO SCH (09:17)
[2019-05-09] MEDS: ZINC SULFATE 220 MG ( 50 ) CAPSULE PO SCH (09:17)
[2019-05-09] MEDS: AMIODARONE HCL 200 MG TABLET NG SCH (09:19)
[2019-05-09] MEDS: CARVEDILOL 3.125 MG TABLET PO SCH ×2 (09:19→22:29)
[2019-05-09] MEDS: CEFEPIME 1,000 MG in DEXTROSE 5% WATER 50 ML IV SCH ×2 (10:45→22:28)
[2019-05-09] MEDS: INSULIN GLARGINE UD 100 UNITS/ML SYR SUBCUT SCH ×2 (10:46→22:32)
[2019-05-09] MEDS: INSULIN LISPRO 100 UNITS/ML SUBCUT SCH ×3 (10:47→18:20)
[2019-05-09] MEDS: METOCLOPRAMIDE HCL 10MG/2ML VIAL IV SCH ×3 (14:04→18:19)
[2019-05-09] MEDS: DAPTOMYCIN 600 MG in SODIUM CHLORIDE 0.9% 50 ML IV SCH (17:18)
[2019-05-09] MEDS: ATORVASTATIN CALCIUM 40MG TABLET PO SCH (22:30)
[2019-05-10] VITALS (12 sets, daily range): BP systolic 105–138; BP diastolic 56–77
[2019-05-10] MEDS: IPRATROPIUM/ALBUTEROL 0.5-3(2.5)MG/3ML NEB HHN SCH ×6 (00:33→20:06)
[2019-05-10] MEDS: METOCLOPRAMIDE HCL 10MG/2ML VIAL IV SCH ×5 (00:47→23:24)
[2019-05-10] MEDS: BLOOD SUGAR DIAGNOSTIC STRIP TEST SCH ×5 (00:47→23:53)
[2019-05-10] MEDS: INSULIN LISPRO 100 UNITS/ML SUBCUT SCH ×5 (00:49→23:37)
[2019-05-10] MEDS: DEXTROSE 5% WATER 1,000 ML IV SCH ×2 (00:55→17:40)
[2019-05-10 05:52] LABS: CHLORIDE 111 mEq/L (98-107)
[2019-05-10 06:02] LABS: BASOPHILS % 0.9 % (0.0-2.0); HEMATOCRIT. 27.1 % (42.0-52.0); HEMOGLOBIN. 8.4 g/dL (14.0-18.0); LYMPHOCYTES % 9.1 % (20.0-50.0); MEAN CORPUSCULAR VOLUME 83.5 fL (80.0-94.0); MEAN PLATELET VOLUME 10.4 fl (7.4-10.4); MONOCYTES % 8.5 % (2.0-8.0); NEUTROPHILS % 77.5 % (40.0-76.0); PLATELET 255 x1000/uL (130-400); RED BLOOD CELL COUNT 3.24 mill/uL (4.7-6.1); RED CELL DISTRIBUTION WIDTH 19.2 % (11.6-14.6)
[2019-05-10] MEDS: AMLODIPINE 2.5MG TABLET PO SCH ×2 (09:00→21:00)
[2019-05-10] MEDS ORDERED: RACEPINEPHRINE 2.25% 0.5ML NEB VIAL HHN PRN (09:15)
[2019-05-10] MEDS: LEVETIRACETAM 500MG/5ML CUP GT SCH ×2 (09:59→17:39)
[2019-05-10] MEDS: METRONIDAZOLE 500MG TABLET GT SCH ×2 (09:59→21:31)
[2019-05-10] MEDS: ZINC SULFATE 220 MG ( 50 ) CAPSULE PO SCH (09:59)
[2019-05-10] MEDS: CARVEDILOL 3.125 MG TABLET PO SCH ×2 (10:00→21:31)
[2019-05-10] MEDS: ASCORBIC ACID 500 MG TABLET PO SCH (10:00)
[2019-05-10] MEDS: CEFEPIME 1,000 MG in DEXTROSE 5% WATER 50 ML IV SCH ×2 (10:15→23:25)
[2019-05-10] MEDS: AMIODARONE HCL 200 MG TABLET NG SCH (10:15)
[2019-05-10] MEDS: INSULIN GLARGINE UD 100 UNITS/ML SYR SUBCUT SCH ×2 (10:17→21:33)
[2019-05-10 11:28] LABS: HEMATOCRIT 26.8 % (42.0-52.0); HEMOGLOBIN 8.4 g/dL (14.0-18.0)
[2019-05-10 12:16] LABS: BG BASE EXCESS 5.8 mmol/L (-2.0-2.0); BG CARBOXYHEMOGLOBIN 0.8 % (0.5-1.5); BG DEOXYHEMOGLOBIN 1.2 % (0.0-5.0); BG FRACTION INSPIRED OXYGEN 35; BG HCO3 ACT 29.5 mmol/L (22.0-26.0); BG METHEMOGLOBIN 0.1 % (0.0-1.5); BG OXYGEN SATURATION 98.8 % (92.0-98.5); BG OXYHEMOGLOBIN 97.9 % (94.0-97.0); BG PCO2 39.3 mmHg (35.0-45.0); BG PH 7.494 (7.350-7.450); BG PO2 141.4 mmHg (75.0-100.0); BG SAMPLE SITE RIGHT RADIAL; BG TIDAL VOLUME(mL) 500 mL; BG TOTAL HEMOGLOBIN 8.8 g/dL (12.0-18.0); BG VENT MODE VENT - A/C; BG VENT RATE 16 set
[2019-05-10] MEDS: DAPTOMYCIN 600 MG in SODIUM CHLORIDE 0.9% 50 ML IV SCH (17:31)
[2019-05-10] MEDS: ATORVASTATIN CALCIUM 40MG TABLET PO SCH (21:30)
[2019-05-11] VITALS (12 sets, daily range): BP systolic 72–145; BP diastolic 54–96
[2019-05-11] MEDS: IPRATROPIUM/ALBUTEROL 0.5-3(2.5)MG/3ML NEB HHN SCH ×6 (00:47→20:09)
[2019-05-11] MEDS: METOCLOPRAMIDE HCL 10MG/2ML VIAL IV SCH ×3 (05:11→18:16)
[2019-05-11] MEDS: BLOOD SUGAR DIAGNOSTIC STRIP TEST SCH ×3 (05:11→18:16)
[2019-05-11] MEDS: INSULIN LISPRO 100 UNITS/ML SUBCUT SCH ×3 (05:11→18:54)
[2019-05-11 06:18] LABS: BASOPHILS % 1.2 % (0.0-2.0); EOSINOPHILS % 3.6 % (0.0-5.0); HEMATOCRIT. 25.3 % (42.0-52.0); HEMOGLOBIN. 7.8 g/dL (14.0-18.0); LYMPHOCYTES % 10.2 % (20.0-50.0); MEAN CORPUSCULAR HEMOGLOBIN 25.4 pg (28.0-32.0); MEAN CORPUSCULAR VOLUME 82.6 fL (80.0-94.0); MEAN PLATELET VOLUME 10.7 fl (7.4-10.4); MONOCYTES % 7.8 % (2.0-8.0); NEUTROPHILS % 77.2 % (40.0-76.0); PLATELET 284 x1000/uL (130-400); RED BLOOD CELL COUNT 3.06 mill/uL (4.7-6.1); RED CELL DISTRIBUTION WIDTH 19.2 % (11.6-14.6)
[2019-05-11 06:27] LABS: CHLORIDE 107 mEq/L (98-107)
[2019-05-11 06:38] LABS: CREATINE KINASE 158 IU/L (39-308)
[2019-05-11] MEDS: METRONIDAZOLE 500MG TABLET GT SCH ×2 (09:32→21:42)
[2019-05-11] MEDS: CARVEDILOL 3.125 MG TABLET PO SCH ×2 (09:33→21:42)
[2019-05-11] MEDS: ASCORBIC ACID 500 MG TABLET PO SCH (09:33)
[2019-05-11] MEDS: AMIODARONE HCL 200 MG TABLET NG SCH (09:33)
[2019-05-11] MEDS: LEVETIRACETAM 500MG/5ML CUP GT SCH ×2 (09:34→16:24)
[2019-05-11] MEDS: INSULIN GLARGINE UD 100 UNITS/ML SYR SUBCUT SCH ×2 (09:34→22:18)
[2019-05-11] MEDS: AMLODIPINE 2.5MG TABLET PO SCH ×2 (09:34→21:00)
[2019-05-11] MEDS: ZINC SULFATE 220 MG ( 50 ) CAPSULE PO SCH (09:35)
[2019-05-11] MEDS: CEFEPIME 1,000 MG in DEXTROSE 5% WATER 50 ML IV SCH ×2 (11:23→22:24)
[2019-05-11] MEDS: DEXTROSE 5% WATER 1,000 ML IV SCH (11:23)
[2019-05-11 11:42] LABS: HEMATOCRIT 26.3 % (42.0-52.0); HEMOGLOBIN 8.2 g/dL (14.0-18.0)
[2019-05-11] MEDS: DAPTOMYCIN 600 MG in SODIUM CHLORIDE 0.9% 50 ML IV SCH (16:13)
[2019-05-11] MEDS: ATORVASTATIN CALCIUM 40MG TABLET PO SCH (21:42)
[2019-05-12] VITALS (11 sets, daily range): BP systolic 109–151; BP diastolic 58–81
[2019-05-12] MEDS: IPRATROPIUM/ALBUTEROL 0.5-3(2.5)MG/3ML NEB HHN SCH ×5 (00:19→16:06)
[2019-05-12] MEDS: METOCLOPRAMIDE HCL 10MG/2ML VIAL IV SCH ×4 (00:37→17:30)
[2019-05-12] MEDS: BLOOD SUGAR DIAGNOSTIC STRIP TEST SCH ×4 (00:37→17:30)
[2019-05-12] MEDS: INSULIN LISPRO 100 UNITS/ML SUBCUT SCH ×4 (05:45→17:44)
[2019-05-12] MEDS: AMIODARONE HCL 200 MG TABLET NG SCH (08:52)
[2019-05-12] MEDS: ASCORBIC ACID 500 MG TABLET PO SCH (08:53)
[2019-05-12] MEDS: ZINC SULFATE 220 MG ( 50 ) CAPSULE PO SCH (08:53)
[2019-05-12] MEDS: METRONIDAZOLE 500MG TABLET GT SCH (08:53)
[2019-05-12] MEDS: AMLODIPINE 2.5MG TABLET PO SCH (08:53)
[2019-05-12] MEDS: CARVEDILOL 3.125 MG TABLET PO SCH (08:53)
[2019-05-12] MEDS: LEVETIRACETAM 500MG/5ML CUP GT SCH ×2 (08:54→17:03)
[2019-05-12] MEDS: INSULIN GLARGINE UD 100 UNITS/ML SYR SUBCUT SCH (10:46)
[2019-05-12] MEDS: CEFEPIME 1,000 MG in DEXTROSE 5% WATER 50 ML IV SCH (10:46)
[2019-05-12 13:18] LABS: HEMATOCRIT 27.2 % (42.0-52.0); HEMOGLOBIN 8.5 g/dL (14.0-18.0); MEAN CORPUSCULAR HEMOGLOBIN 25.8 pg (28.0-32.0); MEAN CORPUSCULAR VOLUME 82.1 fL (80.0-94.0); PLATELET 289 x1000/uL (130-400); RED BLOOD CELL COUNT 3.31 mill/uL (4.7-6.1); RED CELL DISTRIBUTION WIDTH 19.4 % (11.6-14.6)
[2019-05-12 13:34] LABS: CHLORIDE 106 mEq/L (98-107)
[2019-05-12] MEDS: DAPTOMYCIN 600 MG in SODIUM CHLORIDE 0.9% 50 ML IV SCH (16:45)
[2019-05-12] MEDS: DIPHENHYDRAMINE 50MG/ML VIAL IV PRN (20:29)
== END 2019-05-12 20:55 | DRG 870 ==
LOC: ER 14:40 → 5EST 16:10 → EDBEDREQ 16:16 → EDBEDREQTM 16:16 → ENRESERV 20:01 → 5EST 05-04 19:00
PROVIDERS: ADMIT Family Medicine Adult Medicine; ATTEND Family Medicine Adult Medicine
PROC: 5A1955Z Respiratory Ventilation, Greater than 96 Consecutive Hours (ICD-10-PCS; principal; 2019-04-24)
PROC: 30233N1 Transfusion of Nonautologous Red Blood Cells into Peripheral Vein, Percutaneous Approach (ICD-10-PCS; 2019-04-24)
PROC: 05HY33Z Insertion of Infusion Device into Upper Vein, Percutaneous Approach (ICD-10-PCS; 2019-04-26)
PROC: B54MZZA Ultrasonography of Right Upper Extremity Veins, Guidance (ICD-10-PCS; 2019-04-26)
PROC: 0DJ08ZZ Inspection of Upper Intestinal Tract, Via Natural or Artificial Opening Endoscopic (ICD-10-PCS; 2019-04-29)
PROC: 0DBE8ZX Excision of Large Intestine, Via Natural or Artificial Opening Endoscopic, Diagnostic (ICD-10-PCS; 2019-04-29)
PROC: 02HV33Z Insertion of Infusion Device into Superior Vena Cava, Percutaneous Approach (ICD-10-PCS; 2019-05-05)
PROC: B5181ZA Fluoroscopy of Superior Vena Cava using Low Osmolar Contrast, Guidance (ICD-10-PCS; 2019-05-05)
PROC: B548ZZA Ultrasonography of Superior Vena Cava, Guidance (ICD-10-PCS; 2019-05-05)
DX: A41.9 Sepsis, unspecified organism (principal); J96.20 Acute and chronic respiratory failure, unspecified whether with hypoxia or hypercapnia; E43 Unspecified severe protein-calorie malnutrition; J18.1 Lobar pneumonia, unspecified organism; N39.0 Urinary tract infection, site not specified; G93.40 Encephalopathy, unspecified; E87.0 Hyperosmolality and hypernatremia; Z99.11 Dependence on respirator [ventilator] status; M86.8X7 Other osteomyelitis, ankle and foot; I82.B11 Acute embolism and thrombosis of right subclavian vein; I82.A11 Acute embolism and thrombosis of right axillary vein; I82.621 Acute embolism and thrombosis of deep veins of right upper extremity; I82.611 Acute embolism and thrombosis of superficial veins of right upper extremity; L97.919 Non-pressure chronic ulcer of unspecified part of right lower leg with unspecified severity; L97.929 Non-pressure chronic ulcer of unspecified part of left lower leg with unspecified severity; E78.5 Hyperlipidemia, unspecified; I11.0 Hypertensive heart disease with heart failure; E11.40 Type 2 diabetes mellitus with diabetic neuropathy, unspecified; L89.90 Pressure ulcer of unspecified site, unspecified stage; E11.51 Type 2 diabetes mellitus with diabetic peripheral angiopathy without gangrene; E87.6 Hypokalemia; G40.909 Epilepsy, unspecified, not intractable, without status epilepticus; I25.10 Atherosclerotic heart disease of native coronary artery without angina pectoris; I48.0 Paroxysmal atrial fibrillation; I27.20 Pulmonary hypertension, unspecified; I50.9 Heart failure, unspecified; R13.10 Dysphagia, unspecified; L89.899 Pressure ulcer of other site, unspecified stage; E11.69 Type 2 diabetes mellitus with other specified complication; L89.159 Pressure ulcer of sacral region, unspecified stage; E86.0 Dehydration; D50.9 Iron deficiency anemia, unspecified; K57.30 Diverticulosis of large intestine without perforation or abscess without bleeding; K29.40 Chronic atrophic gastritis without bleeding; I95.9 Hypotension, unspecified; E87.5 Hyperkalemia; B95.2 Enterococcus as the cause of diseases classified elsewhere; Z16.21 Resistance to vancomycin; R47.02 Dysphasia; I49.3 Ventricular premature depolarization; S50.812A Abrasion of left forearm, initial encounter; X58.XXXA Exposure to other specified factors, initial encounter; Z79.4 Long term (current) use of insulin; Z74.01 Bed confinement status; Z79.899 Other long term (current) drug therapy; Z86.14 Personal history of Methicillin resistant Staphylococcus aureus infection; Z86.73 Personal history of transient ischemic attack (TIA), and cerebral infarction without residual deficits; Z95.1 Presence of aortocoronary bypass graft; Z87.440 Personal history of urinary (tract) infections; Z93.1 Gastrostomy status; Z68.27 Body mass index [BMI] 27.0-27.9, adult; Z87.01 Personal history of pneumonia (recurrent); Y93.89 Activity, other specified; Y99.8 Other external cause status
CPT/HCPCS: 36415; 36573; 36600; 71045; 73620; 76937; 80048; 80076; 80202; 81003; 82270; 82375; 82550; 82607; 82728; 82746; 82805; 82962; 83036; 83540; 83550; 83605; 83735; 83880; 83930; 84100; 84132; 84134; 84145; 84443; 85014; 85018; 85027; 85044; 85651; 86140; 86850; 86900; 86920; 87070; 87075; 87077; 87106; 87186; 88305; 93005; 93970; 93971; 94002; 94003; 94640; 94667; 96374; 97161; 97162; 99152; 99291; A6261; C1725; J0692; J0696; J0713; J0878; J1200; J1815; J2060; J2250; J2765; J3010; J3370; J3480; J3490; J7030; J7040; J7050; J7060; J7070; J7608; J7620; P9016; A4315; G0500

== ENCOUNTER 2019-06-14 15:13 | Inpatient (IN) | payer MEDICARE, MEDICAID ==
[~2019-06-14] VITALS: Ht 183.1 cm; Wt 87.1 kg
[~2019-06-14 15:13] MED LIST changes: +ACET-2178 GT; -ACET1TAB14 PO; +AMIO100T4 GT; -AMIO100T4 PO; -AMLO10TA80 PO; +AMLO5TAB88 GT; +ATOR40TA70 GT; -BENA20TA10 PO; +CARV6.2548 GT; -CARV6.2548 PO; +CLON0.1T GT; +DOCU-138 GT; +FE300LUD GT; -FURO80TA3 PO; +HYDR-4005 GT; +KEPPSOL GT; +LEVE750T4 GT; +LEVVL SQ; -LISI10TA5 PO; +LORA-250 GT; +MAGN311T3 GT; +MULT1TAB76 GT; +OMEP20TA2 GT; +ONDA4TAB5 IV; -P50 PO; +SUCR1TAB GT; -TERA5CAP4 PO
[2019-06-14] MEDS ORDERED: SODIUM CHLORIDE 0.9% 1,000 ML IV ONE (15:53)
[2019-06-14 16:22] LABS: COLOR URINE YELLOW (YELLOW); KETONES URINE NEGATIVE (NEGATIVE); LEUKOCYTE ESTERASE URINE 3+ (NEGATIVE); NITRITE URINE NEGATIVE (NEGATIVE); OCCULT BLOOD URINE 2+ (NEGATIVE); PROTEIN URINE 2+ (NEGATIVE); SPECIFIC GRAVITY URINE 1.015 (1.005-1.030)
[2019-06-14 16:24] LABS: CLARITY URINE CLOUDY (CLEAR)
[2019-06-14 16:39] LABS: BASOPHILS % 0.6 % (0.0-2.0); CHLORIDE 105 mEq/L (98-107); EOSINOPHILS % 1.6 % (0.0-5.0); HEMATOCRIT. 24.1 % (42.0-52.0); HEMOGLOBIN. 7.8 g/dL (14.0-18.0); MEAN CORPUSCULAR HEMOGLOBIN 26.2 pg (28.0-32.0); MEAN CORPUSCULAR VOLUME 81.1 fL (80.0-94.0); MEAN PLATELET VOLUME 8.9 fl (7.4-10.4); MONOCYTES % 5.9 % (2.0-8.0); NEUTROPHILS % 83.9 % (40.0-76.0); PLATELET 261 x1000/uL (130-400); RED BLOOD CELL COUNT 2.97 mill/uL (4.7-6.1); RED CELL DISTRIBUTION WIDTH 19.7 % (11.6-14.6)
[2019-06-14 16:41] LABS: INR 1.2; PROTHROMBIN TIME 12.4 sec (9.6-11.0)
[2019-06-14] MEDS ORDERED: LEVOFLOXACIN 750MG PREMIX 150 ML IV ONE (16:45)
[2019-06-14 22:00] VITALS: BP 107/73
[2019-06-14] MEDS ORDERED: CLONIDINE 0.1MG TABLET PO PRN (23:15)
[2019-06-14] MEDS ORDERED: GUAIFENESIN 200MG/10ML SUGAR FREE UDC GT PRN (23:15)
[2019-06-14] MEDS ORDERED: MORPHINE SULFATE 2 MG/ML CPJ (NOT FOR IM USE) IV PRN (23:15)
[2019-06-14] MEDS ORDERED: HYDROCODONE/ACETAMINOPHEN 5/325MG TABLET GT PRN (23:15)
[2019-06-14] MEDS ORDERED: MAGNESIUM/ALUMINUM HYDROXIDE/SIMETHICONE 30ML UDC GT PRN (23:15)
[2019-06-14] MEDS ORDERED: ONDANSETRON HCL 4MG/2ML INJ IV PRN (23:15)
[2019-06-14] MEDS ORDERED: DOCUSATE SODIUM 100MG CAPSULE GT PRN (23:15)
[2019-06-14 23:45] VITALS: BP 112/56
[2019-06-15] VITALS (12 sets, daily range): BP systolic 96–148; BP diastolic 60–79
[2019-06-15] MEDS: IPRATROPIUM/ALBUTEROL 0.5-3(2.5)MG/3ML NEB INH PRN ×3 (00:23→08:51)
[2019-06-15] MEDS ORDERED: DEXTROSE 50% WATER 50ML SYRINGE IV PRN (00:45)
[2019-06-15 06:15] LABS: BASOPHILS % 0.5 % (0.0-2.0); EOSINOPHILS % 0.9 % (0.0-5.0); HEMATOCRIT. 27.1 % (42.0-52.0); HEMOGLOBIN. 8.5 g/dL (14.0-18.0); LYMPHOCYTES % 8.5 % (20.0-50.0); MEAN CORPUSCULAR HEMOGLOBIN 26.2 pg (28.0-32.0); MEAN CORPUSCULAR VOLUME 83.4 fL (80.0-94.0); MEAN PLATELET VOLUME 9.3 fl (7.4-10.4); MONOCYTES % 6.4 % (2.0-8.0); NEUTROPHILS % 83.7 % (40.0-76.0); PLATELET 265 x1000/uL (130-400); RED BLOOD CELL COUNT 3.25 mill/uL (4.7-6.1)
[2019-06-15 06:28] LABS: CHLORIDE 105 mEq/L (98-107)
[2019-06-15 06:38] LABS: LDL CHOLESTEROL 43 mg/dL (5-100)
[2019-06-15 06:39] LABS: T4 FREE 1.84 ng/dL (0.76-1.46)
[2019-06-15 06:40] LABS: HDL CHOLESTEROL 32 mg/dL (40-59)
[2019-06-15] MEDS: INSULIN LISPRO 100 UNITS/ML SUBCUT SCH ×4 (08:00→20:33)
[2019-06-15] MEDS: CEFTRIAXONE 1 G PREMIX 50 ML IV SCH (08:10)
[2019-06-15] MEDS: BLOOD SUGAR DIAGNOSTIC STRIP TEST SCH ×4 (08:10→20:33)
[2019-06-15] MEDS: FERROUS SULFATE 300MG/5ML UDC GT SCH (08:10)
[2019-06-15] MEDS: AMIODARONE HCL 200 MG TABLET GT SCH (08:11)
[2019-06-15] MEDS: LEVETIRACETAM 500MG/5ML CUP GT SCH ×2 (08:11→20:33)
[2019-06-15] MEDS: MULTIVITAMINS,THER W-MINERALS TABLET GT SCH (08:11)
[2019-06-15] MEDS: AMLODIPINE 5MG TABLET GT SCH ×2 (08:11→20:36)
[2019-06-15] MEDS: METOPROLOL TARTRATE 50MG TABLET GT SCH ×2 (08:12→20:36)
[2019-06-15] MEDS: FAMOTIDINE 20MG TABLET GT SCH ×2 (08:12→20:33)
[2019-06-15] MEDS ORDERED: CEFTRIAXONE 1 G PREMIX 50 ML IV SCH (09:00)
[2019-06-15 14:45] LABS: BG BASE EXCESS 4.4 mmol/L (-2.0-2.0); BG CARBOXYHEMOGLOBIN 0.3 % (0.5-1.5); BG DEOXYHEMOGLOBIN 2.1 % (0.0-5.0); BG FRACTION INSPIRED OXYGEN 40; BG HCO3 ACT 28.4 mmol/L (22.0-26.0); BG METHEMOGLOBIN 0.3 % (0.0-1.5); BG OXYGEN SATURATION 97.9 % (92.0-98.5); BG OXYHEMOGLOBIN 97.3 % (94.0-97.0); BG PCO2 39.5 mmHg (35.0-45.0); BG PH 7.474 (7.350-7.450); BG PO2 107.8 mmHg (75.0-100.0); BG SAMPLE SITE RIGHT RADIAL; BG TIDAL VOLUME(mL) 500 mL; BG TOTAL HEMOGLOBIN 8.7 g/dL (12.0-18.0); BG VENT MODE VENT - A/C; BG VENT RATE 14 set
[2019-06-15] MEDS: IPRATROPIUM/ALBUTEROL 0.5-3(2.5)MG/3ML NEB HHN SCH (20:21)
[2019-06-16] VITALS (12 sets, daily range): BP systolic 104–173; BP diastolic 58–70
[2019-06-16] MEDS: IPRATROPIUM/ALBUTEROL 0.5-3(2.5)MG/3ML NEB HHN SCH ×5 (00:34→16:03)
[2019-06-16] MEDS: BLOOD SUGAR DIAGNOSTIC STRIP TEST SCH ×3 (07:39→17:59)
[2019-06-16] MEDS: LEVETIRACETAM 500MG/5ML CUP GT SCH ×2 (08:02→21:57)
[2019-06-16] MEDS: CEFTRIAXONE 1 G PREMIX 50 ML IV SCH (08:02)
[2019-06-16] MEDS: AMIODARONE HCL 200 MG TABLET GT SCH (08:02)
[2019-06-16] MEDS: FERROUS SULFATE 300MG/5ML UDC GT SCH (08:03)
[2019-06-16] MEDS: ACETAMINOPHEN 325MG TABLET GT PRN ×2 (08:03→20:54)
[2019-06-16] MEDS: MULTIVITAMINS,THER W-MINERALS TABLET GT SCH (08:04)
[2019-06-16] MEDS: FAMOTIDINE 20MG TABLET GT SCH ×2 (08:04→20:54)
[2019-06-16] MEDS: METOPROLOL TARTRATE 50MG TABLET GT SCH ×3 (08:04→20:54)
[2019-06-16] MEDS: AMLODIPINE 5MG TABLET GT SCH ×2 (08:04→20:53)
[2019-06-16] MEDS: INSULIN LISPRO 100 UNITS/ML SUBCUT SCH ×3 (08:06→18:00)
[2019-06-17] VITALS (12 sets, daily range): BP systolic 106–156; BP diastolic 59–75
[2019-06-17] MEDS: BLOOD SUGAR DIAGNOSTIC STRIP TEST SCH ×4 (00:23→17:29)
[2019-06-17] MEDS: INSULIN LISPRO 100 UNITS/ML SUBCUT SCH ×4 (00:23→17:51)
[2019-06-17] MEDS: IPRATROPIUM/ALBUTEROL 0.5-3(2.5)MG/3ML NEB HHN SCH ×3 (02:23→19:53)
[2019-06-17 07:24] LABS: BASOPHILS % 0.6 % (0.0-2.0); EOSINOPHILS % 1.6 % (0.0-5.0); HEMATOCRIT. 26.3 % (42.0-52.0); HEMOGLOBIN. 8.4 g/dL (14.0-18.0); LYMPHOCYTES % 10.1 % (20.0-50.0); MEAN CORPUSCULAR HEMOGLOBIN 26.3 pg (28.0-32.0); MEAN CORPUSCULAR VOLUME 82.2 fL (80.0-94.0); MEAN PLATELET VOLUME 8.9 fl (7.4-10.4); MONOCYTES % 7.1 % (2.0-8.0); NEUTROPHILS % 80.6 % (40.0-76.0); PLATELET 361 x1000/uL (130-400); RED CELL DISTRIBUTION WIDTH 19.8 % (11.6-14.6)
[2019-06-17 07:39] LABS: CHLORIDE 108 mEq/L (98-107)
[2019-06-17 07:51] LABS: CREATINE KINASE 600 IU/L (39-308)
[2019-06-17] MEDS: CEFTRIAXONE 1 G PREMIX 50 ML IV SCH (08:20)
[2019-06-17] MEDS: FERROUS SULFATE 300MG/5ML UDC GT SCH (08:20)
[2019-06-17] MEDS: METOPROLOL TARTRATE 50MG TABLET GT SCH ×2 (08:21→21:17)
[2019-06-17] MEDS: LEVETIRACETAM 500MG/5ML CUP GT SCH ×2 (08:21→21:18)
[2019-06-17] MEDS: AMLODIPINE 5MG TABLET GT SCH ×2 (08:22→21:16)
[2019-06-17] MEDS: FAMOTIDINE 20MG TABLET GT SCH ×2 (08:22→21:17)
[2019-06-17] MEDS: MULTIVITAMINS,THER W-MINERALS TABLET GT SCH (08:22)
[2019-06-17] MEDS: AMIODARONE HCL 200 MG TABLET GT SCH (08:27)
[2019-06-17] MEDS: IPRATROPIUM/ALBUTEROL 0.5-3(2.5)MG/3ML NEB INH PRN (08:53)
[2019-06-18] VITALS (12 sets, daily range): BP systolic 113–132; BP diastolic 65–76
[2019-06-18] MEDS: BLOOD SUGAR DIAGNOSTIC STRIP TEST SCH ×4 (00:21→18:37)
[2019-06-18] MEDS: INSULIN LISPRO 100 UNITS/ML SUBCUT SCH ×4 (00:26→18:37)
[2019-06-18] MEDS: IPRATROPIUM/ALBUTEROL 0.5-3(2.5)MG/3ML NEB HHN SCH ×4 (01:57→20:11)
[2019-06-18] MEDS: FAMOTIDINE 20MG TABLET GT SCH ×2 (08:42→21:56)
[2019-06-18] MEDS: LEVETIRACETAM 500MG/5ML CUP GT SCH ×2 (08:42→21:55)
[2019-06-18] MEDS: FERROUS SULFATE 300MG/5ML UDC GT SCH (08:42)
[2019-06-18] MEDS: MULTIVITAMINS,THER W-MINERALS TABLET GT SCH (08:42)
[2019-06-18] MEDS: CEFTRIAXONE 1 G PREMIX 50 ML IV SCH (08:42)
[2019-06-18] MEDS: AMIODARONE HCL 200 MG TABLET GT SCH (08:42)
[2019-06-18] MEDS: AMLODIPINE 5MG TABLET GT SCH ×2 (08:43→21:56)
[2019-06-18] MEDS: METOPROLOL TARTRATE 50MG TABLET GT SCH ×2 (08:43→21:57)
[2019-06-18] MEDS: ACETAMINOPHEN 325MG TABLET GT PRN (21:55)
[2019-06-18] MEDS: AMOXICILLIN/POTASSIUM CLAVULANATE 500/125MG TAB PO SCH (21:55)
[2019-06-19] VITALS (12 sets, daily range): BP systolic 102–138; BP diastolic 54–89
[2019-06-19] MEDS: IPRATROPIUM/ALBUTEROL 0.5-3(2.5)MG/3ML NEB HHN SCH ×4 (00:28→20:24)
[2019-06-19] MEDS: BLOOD SUGAR DIAGNOSTIC STRIP TEST SCH ×4 (00:31→18:00)
[2019-06-19] MEDS: INSULIN LISPRO 100 UNITS/ML SUBCUT SCH ×4 (00:38→18:04)
[2019-06-19] MEDS: FAMOTIDINE 20MG TABLET GT SCH ×2 (09:16→21:44)
[2019-06-19] MEDS: FERROUS SULFATE 300MG/5ML UDC GT SCH (09:16)
[2019-06-19] MEDS: LEVETIRACETAM 500MG/5ML CUP GT SCH ×2 (09:16→21:43)
[2019-06-19] MEDS: MULTIVITAMINS,THER W-MINERALS TABLET GT SCH (09:17)
[2019-06-19] MEDS: AMLODIPINE 5MG TABLET GT SCH ×2 (09:17→21:44)
[2019-06-19] MEDS: METOPROLOL TARTRATE 50MG TABLET GT SCH ×2 (09:17→21:44)
[2019-06-19] MEDS: AMOXICILLIN/POTASSIUM CLAVULANATE 500/125MG TAB PO SCH ×2 (09:28→21:43)
[2019-06-19] MEDS: AMIODARONE HCL 200 MG TABLET GT SCH (09:28)
[2019-06-20] VITALS (8 sets, daily range): BP systolic 112–132; BP diastolic 63–82
[2019-06-20] MEDS: BLOOD SUGAR DIAGNOSTIC STRIP TEST SCH ×3 (00:25→12:15)
[2019-06-20] MEDS: INSULIN LISPRO 100 UNITS/ML SUBCUT SCH ×3 (00:28→13:05)
[2019-06-20] MEDS: IPRATROPIUM/ALBUTEROL 0.5-3(2.5)MG/3ML NEB HHN SCH ×3 (02:14→13:37)
[2019-06-20] MEDS: FERROUS SULFATE 300MG/5ML UDC GT SCH (08:43)
[2019-06-20] MEDS: FAMOTIDINE 20MG TABLET GT SCH (08:43)
[2019-06-20] MEDS: AMIODARONE HCL 200 MG TABLET GT SCH (08:43)
[2019-06-20] MEDS: LEVETIRACETAM 500MG/5ML CUP GT SCH (08:43)
[2019-06-20] MEDS: AMOXICILLIN/POTASSIUM CLAVULANATE 500/125MG TAB PO SCH (08:43)
[2019-06-20] MEDS: MULTIVITAMINS,THER W-MINERALS TABLET GT SCH (08:43)
[2019-06-20] MEDS: AMLODIPINE 5MG TABLET GT SCH (08:44)
[2019-06-20] MEDS: METOPROLOL TARTRATE 50MG TABLET GT SCH (08:44)
== END 2019-06-20 15:19 | DRG 720 ==
LOC: ER 15:13 → 5EST 17:11 → EDBEDREQ 17:20 → ENRESERV 20:29
PROVIDERS: ADMIT Family Medicine Adult Medicine; ATTEND Family Medicine Adult Medicine
PROC: 5A1955Z Respiratory Ventilation, Greater than 96 Consecutive Hours (ICD-10-PCS; principal; 2019-06-14)
DX: A41.9 Sepsis, unspecified organism (principal); J96.20 Acute and chronic respiratory failure, unspecified whether with hypoxia or hypercapnia; E43 Unspecified severe protein-calorie malnutrition; G93.40 Encephalopathy, unspecified; Z99.11 Dependence on respirator [ventilator] status; L89.159 Pressure ulcer of sacral region, unspecified stage; I82.621 Acute embolism and thrombosis of deep veins of right upper extremity; L89.210 Pressure ulcer of right hip, unstageable; I48.0 Paroxysmal atrial fibrillation; L89.013 Pressure ulcer of right elbow, stage 3; Z93.0 Tracheostomy status; E11.22 Type 2 diabetes mellitus with diabetic chronic kidney disease; E11.40 Type 2 diabetes mellitus with diabetic neuropathy, unspecified; E11.51 Type 2 diabetes mellitus with diabetic peripheral angiopathy without gangrene; E87.0 Hyperosmolality and hypernatremia; D64.9 Anemia, unspecified; N39.0 Urinary tract infection, site not specified; N18.9 Chronic kidney disease, unspecified; E78.5 Hyperlipidemia, unspecified; G40.909 Epilepsy, unspecified, not intractable, without status epilepticus; I13.0 Hypertensive heart and chronic kidney disease with heart failure and stage 1 through stage 4 chronic kidney disease, or unspecified chronic kidney disease; I25.10 Atherosclerotic heart disease of native coronary artery without angina pectoris; I27.20 Pulmonary hypertension, unspecified; I50.9 Heart failure, unspecified; L89.629 Pressure ulcer of left heel, unspecified stage; E11.621 Type 2 diabetes mellitus with foot ulcer; L97.429 Non-pressure chronic ulcer of left heel and midfoot with unspecified severity; L97.419 Non-pressure chronic ulcer of right heel and midfoot with unspecified severity; E11.69 Type 2 diabetes mellitus with other specified complication; M86.8X7 Other osteomyelitis, ankle and foot; J44.9 Chronic obstructive pulmonary disease, unspecified; K21.9 Gastro-esophageal reflux disease without esophagitis; Z51.5 Encounter for palliative care; Z74.01 Bed confinement status; Z86.14 Personal history of Methicillin resistant Staphylococcus aureus infection; I69.351 Hemiplegia and hemiparesis following cerebral infarction affecting right dominant side; Z87.11 Personal history of peptic ulcer disease; Z95.1 Presence of aortocoronary bypass graft; Z79.1 Long term (current) use of non-steroidal anti-inflammatories (NSAID); Z79.899 Other long term (current) drug therapy; Z93.1 Gastrostomy status; Z68.26 Body mass index [BMI] 26.0-26.9, adult
CPT/HCPCS: 36415; 36600; 71045; 80048; 80061; 81003; 82375; 82550; 82805; 82962; 83605; 84134; 84145; 84439; 84443; 84484; 93005; 93970; 94002; 94003; 94640; 96374; 99285; J0696; J1815; J1956; J7030; J7620

== ENCOUNTER 2019-06-30 22:42 | Inpatient (IN) | payer MEDICARE, MEDICAID ==
[~2019-06-30] VITALS: Ht 188 cm; Wt 86.2 kg
[2019-06-30] MEDS ORDERED: VANCOMYCIN 1 G PREMIX 200 ML IV ONE (23:30)
[2019-06-30] MEDS ORDERED: PIPERACILLIN/TAZ 3.375G PREMIX 50 ML IV ONE (23:30)
[2019-06-30] MEDS ORDERED: SODIUM CHLORIDE 0.9% 1000ML BAG (SEPSIS BOLUS) IV ONE (23:30)
[2019-06-30] MEDS ORDERED: ACETAMINOPHEN 650MG SUPP PR ONE (23:45)
[2019-06-30 23:46] LABS: HEMATOCRIT. 25.6 % (42.0-52.0); HEMOGLOBIN. 7.9 g/dL (14.0-18.0); MEAN CORPUSCULAR HEMOGLOBIN 25.6 pg (28.0-32.0); MEAN CORPUSCULAR VOLUME 82.8 fL (80.0-94.0); MEAN PLATELET VOLUME 9.5 fl (7.4-10.4); PLATELET 403 x1000/uL (130-400); RED BLOOD CELL COUNT 3.09 mill/uL (4.7-6.1); RED CELL DISTRIBUTION WIDTH 19.1 % (11.6-14.6)
[2019-06-30 23:54] LABS: CHLORIDE 109 mEq/L (98-107)
[2019-06-30 23:55] LABS: INR 1.1; PROTHROMBIN TIME 10.9 sec (9.6-11.0)
[2019-07-01] VITALS (15 sets, daily range): BP systolic 91–115; BP diastolic 49–65
[2019-07-01 00:52] LABS: CLARITY URINE TURBID (CLEAR); COLOR URINE AMBER (YELLOW); KETONES URINE TRACE (NEGATIVE); LEUKOCYTE ESTERASE URINE 3+ (NEGATIVE); NITRITE URINE NEGATIVE (NEGATIVE); OCCULT BLOOD URINE 3+ (NEGATIVE); PROTEIN URINE 2+ (NEGATIVE); SPECIFIC GRAVITY URINE 1.027 (1.005-1.030)
[2019-07-01 02:27] LABS: PLATELET ESTIMATE NORMAL
[2019-07-01] MEDS ORDERED: MAGNESIUM HYDROXIDE GT SCH (06:15)
[2019-07-01] MEDS ORDERED: LORAZEPAM 1MG TABLET GT SCH (06:15)
[2019-07-01] MEDS ORDERED: CLONIDINE 0.1MG TABLET GT SCH (06:15)
[2019-07-01] MEDS ORDERED: CARVEDILOL 6.25 MG TABLET GT SCH (06:15)
[2019-07-01] MEDS ORDERED: ONDANSETRON HCL 4MG TABLET PEG SCH (06:15)
[2019-07-01] MEDS ORDERED: ACETAMINOPHEN 325MG TABLET GT SCH ×2 (06:15)
[2019-07-01] MEDS ORDERED: HYDROCODONE/APAP 7.5/325MG 1 TAB TABLET GT PRN (06:15)
[2019-07-01] MEDS ORDERED: MEDICATION NOT ON FORMULARY EA (Omeprazole 1 TAB) GT SCH (06:15)
[2019-07-01] MEDS ORDERED: LEVETIRACETAM 750 MG GT SCH (06:15)
[2019-07-01] MEDS ORDERED: DEXTROSE 50% WATER 50ML SYRINGE IV PRN ×2 (06:45→11:30)
[2019-07-01] MEDS ORDERED: ACETAMINOPHEN 325MG TABLET GT PRN ×2 (07:00→07:15)
[2019-07-01] MEDS ORDERED: ONDANSETRON HCL 4MG TABLET PEG PRN (07:15)
[2019-07-01] MEDS ORDERED: LORAZEPAM 1MG TABLET GT PRN (07:15)
[2019-07-01] MEDS ORDERED: CLONIDINE 0.1MG TABLET GT PRN (07:15)
[2019-07-01] MEDS ORDERED: BLOOD SUGAR DIAGNOSTIC STRIP TEST SCH ×2 (07:30→12:00)
[2019-07-01] MEDS ORDERED: SUCRALFATE 1 G/10 ML UDC PO SCH (07:45)
[2019-07-01] MEDS ORDERED: AMLODIPINE 5MG TABLET GT SCH (09:00)
[2019-07-01] MEDS ORDERED: MEDICATION NOT ON FORMULARY EA (Amiodarone HCl 200 MG) GT SCH (09:00)
[2019-07-01] MEDS ORDERED: MAGNESIUM HYDROXIDE 400MG/5ML 30ML UDC GT PRN (09:45)
[2019-07-01] MEDS ORDERED: LIDOCAINE HCL 1% 20ML VIAL (Pyxis) INJ ONE (09:53)
[2019-07-01] MEDS ORDERED: SODIUM BICARBONATE 4% (2.4MEQ) 5ML VIAL IV ONE (09:53)
[2019-07-01 10:01] LABS: HEMATOCRIT. 24.2 % (42.0-52.0); HEMOGLOBIN. 7.3 g/dL (14.0-18.0); MEAN CORPUSCULAR HEMOGLOBIN 25.1 pg (28.0-32.0); MEAN CORPUSCULAR VOLUME 82.8 fL (80.0-94.0); MEAN PLATELET VOLUME 9.4 fl (7.4-10.4); PLATELET 403 x1000/uL (130-400); RED BLOOD CELL COUNT 2.92 mill/uL (4.7-6.1); RED CELL DISTRIBUTION WIDTH 19.6 % (11.6-14.6)
[2019-07-01 10:17] LABS: CHLORIDE 111 mEq/L (98-107)
[2019-07-01] MEDS: SUCRALFATE 1 G/10 ML UDC GT SCH ×3 (10:20→19:10)
[2019-07-01] MEDS: FERROUS SULFATE 300MG/5ML UDC GT SCH (10:21)
[2019-07-01] MEDS: LEVETIRACETAM 500MG/5ML CUP GT SCH ×2 (10:21→19:09)
[2019-07-01] MEDS: PIPERACILLIN/TAZOBACTAM 3.375 G in DEXT 5% WATER 100 ML IV SCH ×3 (10:22→20:28)
[2019-07-01] MEDS: AMLODIPINE 5MG TABLET GT SCH ×2 (10:23→20:41)
[2019-07-01] MEDS: VANCOMYCIN 1500MG in DEXTROSE 5% WATER 250ML IV SCH ×2 (10:25→20:27)
[2019-07-01 10:29] LABS: PHOSPHORUS 2.7 mg/dL (2.5-4.9)
[2019-07-01] MEDS: LANSOPRAZOLE 30MG DR CAPSULE GT SCH ×2 (10:38→20:28)
[2019-07-01] MEDS: MULTIVITAMINS,THER W-MINERALS TABLET GT SCH (10:38)
[2019-07-01] MEDS: AMIODARONE HCL 200 MG TABLET GT SCH (10:39)
[2019-07-01] MEDS: CARVEDILOL 6.25 MG TABLET GT SCH ×2 (10:40→20:42)
[2019-07-01] MEDS ORDERED: MAGNESIUM/ALUMINUM HYDROXIDE/SIMETHICONE 30ML UDC PO PRN (11:30)
[2019-07-01] MEDS ORDERED: VANCOMYCIN HCL 1 GM/VIAL PO SCH (12:00)
[2019-07-01] MEDS: BLOOD SUGAR DIAGNOSTIC STRIP TEST SCH ×2 (12:15→18:00)
[2019-07-01] MEDS: INSULIN LISPRO 100 UNITS/ML SUBCUT SCH ×2 (13:17→19:45)
[2019-07-01] MEDS ORDERED: PIPERACILLIN/TAZOBACTAM 3.375GM/50ML PREMIX IV SCH (14:00)
[2019-07-01] MEDS: SODIUM CHLORIDE 0.45% 1,000 ML IV SCH (14:17)
[2019-07-01 14:27] LABS: PLATELET ESTIMATE SLIGHTLY INCREASED
[2019-07-01] MEDS: DOCUSATE SODIUM SUGAR FREE 100MG/10ML UDC GT SCH (19:08)
[2019-07-01] MEDS: ATORVASTATIN CALCIUM 40MG TABLET GT SCH (20:29)
[2019-07-01] MEDS ORDERED: INSULIN DETEMIR 10 UNIT SQ SCH (21:00)
[2019-07-01] MEDS ORDERED: INSULIN GLARGINE UD 100 UNITS/ML SYR SUBCUT SCH (21:00)
[2019-07-02] VITALS (84 sets, daily range): BP systolic 96–116; BP diastolic 50–75
[2019-07-02] MEDS: BLOOD SUGAR DIAGNOSTIC STRIP TEST SCH ×3 (00:17→17:44)
[2019-07-02] MEDS: SUCRALFATE 1 G/10 ML UDC GT SCH ×4 (00:26→17:33)
[2019-07-02] MEDS: INSULIN LISPRO 100 UNITS/ML SUBCUT SCH ×3 (00:27→18:22)
[2019-07-02] MEDS: INSULIN GLARGINE UD 100 UNITS/ML SYR SUBCUT SCH ×2 (00:27→22:00)
[2019-07-02] MEDS ORDERED: DOPAMINE 400MG/250ML PREMIX 250 ML IV ONE (05:13)
[2019-07-02] MEDS ORDERED: EPINEPHRINE 0.1MG/ML (1:10,000) 10ML SYR ONE (05:15)
[2019-07-02] MEDS ORDERED: CALCIUM CHLORIDE 1GM/10ML SYR IV ONE (05:15)
[2019-07-02] MEDS ORDERED: SODIUM BICARBONATE 8.4% MEQ/ML 50ML VIAL IV ONE (05:15)
[2019-07-02] MEDS ORDERED: DOPAMINE 400MG/250ML PREMIX 250 ML IV PRN (05:15)
[2019-07-02 07:30] LABS: BG BASE EXCESS 2.4 mmol/L (-2.0-2.0); BG CARBOXYHEMOGLOBIN 0.3 % (0.5-1.5); BG DEOXYHEMOGLOBIN 0.5 % (0.0-5.0); BG HCO3 ACT 26.8 mmol/L (22.0-26.0); BG METHEMOGLOBIN 0.2 % (0.0-1.5); BG OXYGEN SATURATION 99.5 % (92.0-98.5); BG PCO2 40.8 mmHg (35.0-45.0); BG PH 7.436 (7.350-7.450); BG PO2 204.8 mmHg (75.0-100.0); BG SAMPLE SITE LEFT RADIAL; BG TIDAL VOLUME(mL) 500 mL; BG TOTAL HEMOGLOBIN 6.8 g/dL (12.0-18.0); BG VENT MODE VENT - A/C; BG VENT RATE 14 set
[2019-07-02] MEDS: IPRATROPIUM/ALBUTEROL 0.5-3(2.5)MG/3ML NEB NEB PRN ×3 (07:55→15:06)
[2019-07-02] MEDS: PIPERACILLIN/TAZOBACTAM 3.375 G in DEXT 5% WATER 100 ML IV SCH ×3 (08:30→21:38)
[2019-07-02] MEDS: LANSOPRAZOLE 30MG DR CAPSULE GT SCH ×2 (08:30→21:38)
[2019-07-02] MEDS: MULTIVITAMINS,THER W-MINERALS TABLET GT SCH (08:30)
[2019-07-02] MEDS: AMIODARONE HCL 200 MG TABLET GT SCH (08:32)
[2019-07-02] MEDS: FERROUS SULFATE 300MG/5ML UDC GT SCH (08:32)
[2019-07-02] MEDS: LEVETIRACETAM 500MG/5ML CUP GT SCH ×2 (08:32→17:32)
[2019-07-02] MEDS: AMLODIPINE 5MG TABLET GT SCH ×2 (08:35→21:00)
[2019-07-02] MEDS: CARVEDILOL 6.25 MG TABLET GT SCH ×2 (09:00→21:00)
[2019-07-02 09:03] LABS: MEAN CORPUSCULAR HEMOGLOBIN 26.1 pg (28.0-32.0); MEAN CORPUSCULAR VOLUME 82.4 fL (80.0-94.0); MEAN PLATELET VOLUME 9.1 fl (7.4-10.4); PLATELET 312 x1000/uL (130-400); RED BLOOD CELL COUNT 2.55 mill/uL (4.7-6.1); RED CELL DISTRIBUTION WIDTH 19.2 % (11.6-14.6)
[2019-07-02 09:11] LABS: CHLORIDE 111 mEq/L (98-107)
[2019-07-02 09:21] LABS: HEMOGLOBIN. 6.7 g/dL (14.0-18.0)
[2019-07-02 10:21] LABS: PLATELET ESTIMATE NORMAL
[2019-07-02] MEDS: SODIUM CHLORIDE 0.45% 1,000 ML IV SCH ×2 (17:00→21:39)
[2019-07-02] MEDS: DOCUSATE SODIUM SUGAR FREE 100MG/10ML UDC GT SCH (17:32)
[2019-07-02] MEDS ORDERED: VANCOMYCIN 1250MG in DEXTROSE 5% WATER 250ML IV SCH (18:00)
[2019-07-02 21:08] LABS: HEMATOCRIT 27.4 % (42.0-52.0); HEMOGLOBIN 8.7 g/dL (14.0-18.0)
[2019-07-02 21:20] LABS: INR 1.1; PROTHROMBIN TIME 11.4 sec (9.6-11.0)
[2019-07-02] MEDS: ATORVASTATIN CALCIUM 40MG TABLET GT SCH (21:38)
[2019-07-03] VITALS (46 sets, daily range): BP systolic 94–137; BP diastolic 54–76
[2019-07-03] MEDS: SUCRALFATE 1 G/10 ML UDC GT SCH ×6 (00:32→23:19)
[2019-07-03] MEDS: BLOOD SUGAR DIAGNOSTIC STRIP TEST SCH ×5 (00:32→23:16)
[2019-07-03] MEDS: INSULIN LISPRO 100 UNITS/ML SUBCUT SCH ×6 (00:49→23:16)
[2019-07-03] MEDS: HYDROCODONE/APAP 7.5/325MG 1 TAB TABLET GT PRN ×2 (02:43→22:03)
[2019-07-03] MEDS: PIPERACILLIN/TAZOBACTAM 3.375 G in DEXT 5% WATER 100 ML IV SCH ×4 (03:07→21:57)
[2019-07-03 05:44] LABS: BASOPHILS % 0.3 % (0.0-2.0); EOSINOPHILS % 2.3 % (0.0-5.0); HEMATOCRIT. 25.5 % (42.0-52.0); HEMOGLOBIN. 8.2 g/dL (14.0-18.0); LYMPHOCYTES % 8.2 % (20.0-50.0); MEAN CORPUSCULAR VOLUME 84.4 fL (80.0-94.0); MEAN PLATELET VOLUME 9.2 fl (7.4-10.4); MONOCYTES % 4.7 % (2.0-8.0); NEUTROPHILS % 84.5 % (40.0-76.0); PLATELET 270 x1000/uL (130-400); RED BLOOD CELL COUNT 3.02 mill/uL (4.7-6.1); RED CELL DISTRIBUTION WIDTH 18.5 % (11.6-14.6)
[2019-07-03 06:10] LABS: CHLORIDE 112 mEq/L (98-107)
[2019-07-03] MEDS: IPRATROPIUM/ALBUTEROL 0.5-3(2.5)MG/3ML NEB NEB PRN (07:46)
[2019-07-03] MEDS ORDERED: POTASSIUM CHLORIDE 20MEQ/PACKET PO NR (08:00)
[2019-07-03] MEDS: FERROUS SULFATE 300MG/5ML UDC GT SCH (08:40)
[2019-07-03] MEDS: LANSOPRAZOLE 30MG DR CAPSULE GT SCH ×2 (08:40→22:03)
[2019-07-03] MEDS: LEVETIRACETAM 500MG/5ML CUP GT SCH ×2 (08:40→17:34)
[2019-07-03] MEDS: MULTIVITAMINS,THER W-MINERALS TABLET GT SCH (08:41)
[2019-07-03] MEDS: AMLODIPINE 5MG TABLET GT SCH ×2 (08:41→22:01)
[2019-07-03 08:51] LABS: BG BASE EXCESS 1.8 mmol/L (-2.0-2.0); BG CARBOXYHEMOGLOBIN 0.4 % (0.5-1.5); BG DEOXYHEMOGLOBIN 1.5 % (0.0-5.0); BG FRACTION INSPIRED OXYGEN 40; BG HCO3 ACT 26.3 mmol/L (22.0-26.0); BG METHEMOGLOBIN 0.2 % (0.0-1.5); BG OXYGEN SATURATION 98.5 % (92.0-98.5); BG OXYHEMOGLOBIN 97.9 % (94.0-97.0); BG PCO2 40.9 mmHg (35.0-45.0); BG PH 7.426 (7.350-7.450); BG PO2 130.2 mmHg (75.0-100.0); BG SAMPLE SITE RIGHT RADIAL; BG TIDAL VOLUME(mL) 500 mL; BG TOTAL HEMOGLOBIN 7.8 g/dL (12.0-18.0); BG VENT MODE VENT - A/C; BG VENT RATE 14 set
[2019-07-03] MEDS: IPRATROPIUM/ALBUTEROL 0.5-3(2.5)MG/3ML NEB HHN PRN ×2 (12:15→15:51)
[2019-07-03] MEDS: VANCOMYCIN 1250MG in DEXTROSE 5% WATER 250ML IV SCH (15:40)
[2019-07-03] MEDS: ACETYLCYSTEINE 100MG/ML 10% VIAL 4ML INH SCH ×2 (15:52→20:26)
[2019-07-03] MEDS: DOCUSATE SODIUM SUGAR FREE 100MG/10ML UDC GT SCH (17:34)
[2019-07-03] MEDS: ATORVASTATIN CALCIUM 40MG TABLET GT SCH (21:57)
[2019-07-03] MEDS: INSULIN GLARGINE UD 100 UNITS/ML SYR SUBCUT SCH (22:00)
[2019-07-04] VITALS (12 sets, daily range): BP systolic 99–131; BP diastolic 57–75
[2019-07-04] MEDS: PIPERACILLIN/TAZOBACTAM 3.375 G in DEXT 5% WATER 100 ML IV SCH ×4 (04:51→21:11)
[2019-07-04 05:35] LABS: BASOPHILS % 0.3 % (0.0-2.0); EOSINOPHILS % 2.8 % (0.0-5.0); HEMATOCRIT. 26.3 % (42.0-52.0); HEMOGLOBIN. 8.4 g/dL (14.0-18.0); LYMPHOCYTES % 9.9 % (20.0-50.0); MEAN CORPUSCULAR HEMOGLOBIN 27.2 pg (28.0-32.0); MEAN CORPUSCULAR VOLUME 85.1 fL (80.0-94.0); MEAN PLATELET VOLUME 9.1 fl (7.4-10.4); MONOCYTES % 5.9 % (2.0-8.0); NEUTROPHILS % 81.1 % (40.0-76.0); PLATELET 302 x1000/uL (130-400); RED BLOOD CELL COUNT 3.09 mill/uL (4.7-6.1); RED CELL DISTRIBUTION WIDTH 17.9 % (11.6-14.6)
[2019-07-04 05:50] LABS: CHLORIDE 111 mEq/L (98-107)
[2019-07-04 06:00] LABS: CREATINE KINASE 264 IU/L (39-308)
[2019-07-04] MEDS: BLOOD SUGAR DIAGNOSTIC STRIP TEST SCH ×3 (06:00→17:38)
[2019-07-04 06:01] LABS: CREATINE KINASE MB FRACTION 5.7 ng/mL (0.5-3.6)
[2019-07-04] MEDS: SUCRALFATE 1 G/10 ML UDC GT SCH ×3 (07:38→17:50)
[2019-07-04] MEDS: INSULIN LISPRO 100 UNITS/ML SUBCUT SCH ×3 (07:40→17:52)
[2019-07-04] MEDS: ACETYLCYSTEINE 100MG/ML 10% VIAL 4ML INH SCH ×2 (07:43→15:48)
[2019-07-04] MEDS: IPRATROPIUM/ALBUTEROL 0.5-3(2.5)MG/3ML NEB HHN PRN ×2 (07:44→15:48)
[2019-07-04] MEDS: AMLODIPINE 5MG TABLET GT SCH ×2 (09:00→21:11)
[2019-07-04] MEDS: MULTIVITAMINS,THER W-MINERALS TABLET GT SCH (09:10)
[2019-07-04] MEDS: FERROUS SULFATE 300MG/5ML UDC GT SCH (09:10)
[2019-07-04] MEDS: LEVETIRACETAM 500MG/5ML CUP GT SCH ×2 (09:10→17:50)
[2019-07-04] MEDS: LANSOPRAZOLE 30MG DR CAPSULE GT SCH ×2 (09:10→21:11)
[2019-07-04] MEDS: VANCOMYCIN 1250MG in DEXTROSE 5% WATER 250ML IV SCH (09:36)
[2019-07-04] MEDS: DOCUSATE SODIUM SUGAR FREE 100MG/10ML UDC GT SCH (17:50)
[2019-07-04] MEDS: IPRATROPIUM/ALBUTEROL 0.5-3(2.5)MG/3ML NEB HHN SCH (20:11)
[2019-07-04] MEDS: ATORVASTATIN CALCIUM 40MG TABLET GT SCH (21:11)
[2019-07-04] MEDS: INSULIN GLARGINE UD 100 UNITS/ML SYR SUBCUT SCH (23:52)
[2019-07-05] VITALS (16 sets, daily range): BP systolic 118–148; BP diastolic 34–79
[2019-07-05] MEDS: INSULIN LISPRO 100 UNITS/ML SUBCUT SCH ×4 (00:14→17:51)
[2019-07-05] MEDS: BLOOD SUGAR DIAGNOSTIC STRIP TEST SCH ×4 (00:15→17:31)
[2019-07-05] MEDS: SUCRALFATE 1 G/10 ML UDC GT SCH ×4 (00:15→17:31)
[2019-07-05] MEDS: IPRATROPIUM/ALBUTEROL 0.5-3(2.5)MG/3ML NEB HHN SCH ×4 (01:35→20:18)
[2019-07-05] MEDS: PIPERACILLIN/TAZOBACTAM 3.375 G in DEXT 5% WATER 100 ML IV SCH ×4 (02:50→20:39)
[2019-07-05] MEDS: VANCOMYCIN 1250MG in DEXTROSE 5% WATER 250ML IV SCH (03:24)
[2019-07-05 08:20] LABS: BASOPHILS % 0.3 % (0.0-2.0); EOSINOPHILS % 1.7 % (0.0-5.0); HEMATOCRIT. 26.4 % (42.0-52.0); HEMOGLOBIN. 8.5 g/dL (14.0-18.0); LYMPHOCYTES % 10.3 % (20.0-50.0); MEAN CORPUSCULAR HEMOGLOBIN 27.4 pg (28.0-32.0); MEAN CORPUSCULAR VOLUME 84.5 fL (80.0-94.0); MEAN PLATELET VOLUME 9.2 fl (7.4-10.4); MONOCYTES % 5.5 % (2.0-8.0); NEUTROPHILS % 82.2 % (40.0-76.0); PLATELET 294 x1000/uL (130-400); RED BLOOD CELL COUNT 3.12 mill/uL (4.7-6.1); RED CELL DISTRIBUTION WIDTH 18.9 % (11.6-14.6)
[2019-07-05 08:30] LABS: CHLORIDE 110 mEq/L (98-107)
[2019-07-05] MEDS: ACETYLCYSTEINE 100MG/ML 10% VIAL 4ML INH SCH ×2 (08:44→14:30)
[2019-07-05] MEDS: LEVETIRACETAM 500MG/5ML CUP GT SCH ×2 (09:41→17:31)
[2019-07-05] MEDS: LANSOPRAZOLE 30MG DR CAPSULE GT SCH ×2 (09:41→20:39)
[2019-07-05] MEDS: FERROUS SULFATE 300MG/5ML UDC GT SCH (09:41)
[2019-07-05] MEDS: MULTIVITAMINS,THER W-MINERALS TABLET GT SCH (09:41)
[2019-07-05] MEDS: AMLODIPINE 5MG TABLET GT SCH ×2 (09:49→20:39)
[2019-07-05] MEDS: DOCUSATE SODIUM SUGAR FREE 100MG/10ML UDC GT SCH (17:31)
[2019-07-05] MEDS ORDERED: ACETAMINOPHEN 650MG/20.3ML UDC GT PRN (17:45)
[2019-07-05] MEDS: ATORVASTATIN CALCIUM 40MG TABLET GT SCH (20:39)
[2019-07-06] MEDS ORDERED: VANCOMYCIN 1500MG in DEXTROSE 5% WATER 250ML IV SCH (02:00)
== END 2019-07-05 22:25 | DRG 720 ==
LOC: ER 22:42 → 5EST 07-01 01:10 → EDBEDREQ 07-01 01:13 → EDBEDREQDT 07-01 01:13 → EDBEDREQTM 07-01 01:13 → ENRESERV 07-01 02:59 → CVICU 07-02 05:22 → 5EST 07-03 15:28
PROVIDERS: ADMIT Family Medicine Adult Medicine; ATTEND Family Medicine Adult Medicine
PROC: 5A1955Z Respiratory Ventilation, Greater than 96 Consecutive Hours (ICD-10-PCS; principal; 2019-07-01)
PROC: 05HY33Z Insertion of Infusion Device into Upper Vein, Percutaneous Approach (ICD-10-PCS; 2019-07-01)
PROC: B54MZZZ Ultrasonography of Right Upper Extremity Veins (ICD-10-PCS; 2019-07-01)
PROC: 5A12012 Performance of Cardiac Output, Single, Manual (ICD-10-PCS; 2019-07-02)
PROC: 30233N1 Transfusion of Nonautologous Red Blood Cells into Peripheral Vein, Percutaneous Approach (ICD-10-PCS; 2019-07-02)
DX: A41.9 Sepsis, unspecified organism (principal); J96.21 Acute and chronic respiratory failure with hypoxia; I46.9 Cardiac arrest, cause unspecified; E43 Unspecified severe protein-calorie malnutrition; G93.41 Metabolic encephalopathy; L89.159 Pressure ulcer of sacral region, unspecified stage; J18.1 Lobar pneumonia, unspecified organism; L89.210 Pressure ulcer of right hip, unstageable; L89.013 Pressure ulcer of right elbow, stage 3; N17.9 Acute kidney failure, unspecified; E11.51 Type 2 diabetes mellitus with diabetic peripheral angiopathy without gangrene; E87.0 Hyperosmolality and hypernatremia; E87.2 Acidosis; R13.10 Dysphagia, unspecified; N39.0 Urinary tract infection, site not specified; E78.5 Hyperlipidemia, unspecified; R47.02 Dysphasia; D50.9 Iron deficiency anemia, unspecified; E66.9 Obesity, unspecified; E78.00 Pure hypercholesterolemia, unspecified; G40.909 Epilepsy, unspecified, not intractable, without status epilepticus; I11.9 Hypertensive heart disease without heart failure; I25.10 Atherosclerotic heart disease of native coronary artery without angina pectoris; I48.0 Paroxysmal atrial fibrillation; J44.0 Chronic obstructive pulmonary disease with (acute) lower respiratory infection; K21.9 Gastro-esophageal reflux disease without esophagitis; I95.9 Hypotension, unspecified; Z51.5 Encounter for palliative care; J98.11 Atelectasis; E11.69 Type 2 diabetes mellitus with other specified complication; M86.8X7 Other osteomyelitis, ankle and foot; L89.899 Pressure ulcer of other site, unspecified stage; E11.40 Type 2 diabetes mellitus with diabetic neuropathy, unspecified; L97.429 Non-pressure chronic ulcer of left heel and midfoot with unspecified severity; L97.419 Non-pressure chronic ulcer of right heel and midfoot with unspecified severity; N40.0 Benign prostatic hyperplasia without lower urinary tract symptoms; Z74.01 Bed confinement status; I25.2 Old myocardial infarction; I69.351 Hemiplegia and hemiparesis following cerebral infarction affecting right dominant side; Z87.19 Personal history of other diseases of the digestive system; Z93.0 Tracheostomy status; Z99.81 Dependence on supplemental oxygen; Z86.14 Personal history of Methicillin resistant Staphylococcus aureus infection; Z86.718 Personal history of other venous thrombosis and embolism; Z87.11 Personal history of peptic ulcer disease; Z93.1 Gastrostomy status; Z95.1 Presence of aortocoronary bypass graft; Z79.899 Other long term (current) drug therapy; Z68.24 Body mass index [BMI] 24.0-24.9, adult
CPT/HCPCS: 36415; 36600; 71045; 76937; 80048; 80202; 81003; 82375; 82550; 82553; 82805; 82962; 83036; 83605; 83735; 84100; 84134; 84145; 84443; 84484; 85014; 85018; 85049; 85384; 86850; 86900; 86920; 87070; 87077; 87186; 93005; 93306; 94002; 94003; 94640; 96365; 99291; C1725; J1265; J1642; J1815; J2543; J3370; J3490; J7030; J7040; J7060; J7608; J7620; P9016; Q0162

== ENCOUNTER 2019-08-27 01:46 | Inpatient (IN) | payer MEDICARE, MEDICAID ==
[~2019-08-27] VITALS: Ht 182.9 cm; Wt 88.9 kg
[2019-08-27] VITALS (55 sets, daily range): BP systolic 75–125; BP diastolic 43–77
[~2019-08-27 01:46] MED LIST changes: -ACET-2178 GT; -LEVVL SQ; -LORA-250 GT; +ONDANSETRON HCL 4MG/2ML INJ IV STA; +PIPERACILLIN/TAZ 3.375G PREMIX 50 ML IV ONE; +TOPUD GT; +VANCOMYCIN 1 G PREMIX 200 ML IV ONE
[2019-08-27 01:50] LABS: MEAN CORPUSCULAR HEMOGLOBIN 24.9 pg (28.0-32.0); MEAN CORPUSCULAR VOLUME 82.4 fL (80.0-94.0); PLATELET 243 x1000/uL (130-400); RED BLOOD CELL COUNT 2.15 mill/uL (4.7-6.1)
[2019-08-27 01:56] LABS: INR 1.4; PROTHROMBIN TIME 13.7 sec (9.6-11.0)
[2019-08-27 02:13] LABS: HEMOGLOBIN. 5.3 g/dL (14.0-18.0)
[2019-08-27 02:14] LABS: HEMATOCRIT. 17.7 % (42.0-52.0)
[2019-08-27] MEDS ORDERED: SODIUM CHLORIDE 0.9% 1000ML BAG (SEPSIS BOLUS) IV ONE (02:15)
[2019-08-27 02:42] LABS: BG BASE EXCESS -2.3 mmol/L (-2.0-2.0); BG CARBOXYHEMOGLOBIN 0.6 % (0.5-1.5); BG DEOXYHEMOGLOBIN 3.2 % (0.0-5.0); BG FRACTION INSPIRED OXYGEN 45; BG HCO3 ACT 21.9 mmol/L (22.0-26.0); BG METHEMOGLOBIN 0.2 % (0.0-1.5); BG OXYGEN SATURATION 96.8 % (92.0-98.5); BG PCO2 34.4 mmHg (35.0-45.0); BG PH 7.422 (7.350-7.450); BG PO2 96.9 mmHg (75.0-100.0); BG SAMPLE SITE LEFT RADIAL; BG TIDAL VOLUME(mL) 500 mL; BG TOTAL HEMOGLOBIN 5.6 g/dL (12.0-18.0); BG VENT MODE VENT - A/C; BG VENT RATE 14 set
[2019-08-27 03:41] LABS: PLATELET ESTIMATE NORMAL
[2019-08-27 03:49] LABS: CLARITY URINE TURBID (CLEAR); COLOR URINE DARK YELLOW (YELLOW); KETONES URINE TRACE (NEGATIVE); LEUKOCYTE ESTERASE URINE 2+ (NEGATIVE); NITRITE URINE NEGATIVE (NEGATIVE); OCCULT BLOOD URINE 3+ (NEGATIVE); PROTEIN URINE 2+ (NEGATIVE); SPECIFIC GRAVITY URINE 1.024 (1.005-1.030)
[2019-08-27] MEDS ORDERED: NOREPINEPHRINE 4 MG in DEXT 5% WATER 250 ML IV STA (04:19)
[2019-08-27] MEDS ORDERED: NOREPINEPHRINE 4 MG in DEXT 5% WATER 250 ML IV PRN (05:12)
[2019-08-27] MEDS ORDERED: DEXTROSE 50% WATER 50ML SYRINGE IV ONE ×2 (06:15→14:30)
[2019-08-27] MEDS ORDERED: SODIUM BICARBONATE 8.4% 1 MEQ/ML 50ML SYR IV ONE (06:15)
[2019-08-27] MEDS ORDERED: ALBUTEROL (0.083%) 2.5MG/3ML NEB HHN ONE (06:15)
[2019-08-27] MEDS ORDERED: INSULIN REGULAR (HUMULIN R) 300UNITS/3ML IV ONE ×2 (06:15→15:00)
[2019-08-27] MEDS ORDERED: INSLIS SUBCUT (09:58)
[2019-08-27] MEDS ORDERED: LANS30CA55 PO (09:58)
[2019-08-27] MEDS ORDERED: GABA250S4 PO (09:58)
[2019-08-27] MEDS ORDERED: LORA-249 PO (09:58)
[2019-08-27] MEDS ORDERED: DEXTROSE 50% WATER 50ML SYRINGE IV PRN ×2 (10:15)
[2019-08-27] MEDS ORDERED: NOREPINEPHRINE 4MG/250ML PMX 250 ML IV ONE (10:15)
[2019-08-27] MEDS ORDERED: PIPERACILLIN/TAZOBACTAM 3.375GM/50ML PREMIX IV ONE (10:15)
[2019-08-27] MEDS ORDERED: ONDANSETRON HCL 4MG/2ML INJ IV PRN (10:15)
[2019-08-27] MEDS ORDERED: MORPHINE SULFATE 2 MG/ML CPJ (NOT FOR IM USE) IV PRN (10:15)
[2019-08-27] MEDS ORDERED: DOCUSATE SODIUM 100MG CAPSULE PO PRN (10:15)
[2019-08-27] MEDS ORDERED: CLONIDINE 0.1MG TABLET PO PRN (10:15)
[2019-08-27] MEDS ORDERED: MAGNESIUM/ALUMINUM HYDROXIDE/SIMETHICONE 30ML UDC PO PRN (10:15)
[2019-08-27] MEDS ORDERED: ACETAMINOPHEN 650MG SUPP PR PRN (10:15)
[2019-08-27] MEDS ORDERED: IPRATROPIUM/ALBUTEROL 0.5-3(2.5)MG/3ML NEB NEB PRN (10:15)
[2019-08-27] MEDS ORDERED: VANCOMYCIN 500 MG PREMIX 100 ML IV SCH (10:45)
[2019-08-27] MEDS: DEXT 5%/0.45% NACL 1000ML 1,000 ML IV SCH (11:54)
[2019-08-27] MEDS ORDERED: NOREPINEPHRINE 4 MG in DEXTROSE 5% WATER 250 ML IV PRN (12:00)
[2019-08-27 12:45] LABS: AMYLASE 72 IU/L (25-115)
[2019-08-27 12:49] LABS: TOTAL IRON BINDING CAPACITY 140 ug/dL (250-450)
[2019-08-27] MEDS: BLOOD SUGAR DIAGNOSTIC STRIP TEST SCH ×3 (12:50→21:00)
[2019-08-27 12:55] LABS: HEMATOCRIT 19.9 % (42.0-52.0); HEMOGLOBIN 6.3 g/dL (14.0-18.0)
[2019-08-27] MEDS ORDERED: PIPERACILLIN/TAZ 3.375G PREMIX 50 ML IV SCH (13:00)
[2019-08-27] MEDS: IPRATROPIUM/ALBUTEROL 0.5-3(2.5)MG/3ML NEB HHN SCH ×3 (13:19→20:28)
[2019-08-27] MEDS: INSULIN LISPRO 100 UNITS/ML SUBCUT SCH ×3 (13:20→22:29)
[2019-08-27] MEDS ORDERED: AMIKACIN SULFATE 300 MG in SODIUM CHLORIDE 0.9% 100 ML IV SCH (14:00)
[2019-08-27] MEDS ORDERED: VANCOMYCIN 1 G PREMIX 200 ML IV NR (14:00)
[2019-08-27] MEDS ORDERED: SODIUM POLYSTYRENE SULFONATE 15 G/60 ML BOT GT SCH (14:30)
[2019-08-27] MEDS ORDERED: INSULIN REGULAR (HUMULIN R) 300UNITS/3ML SUBCUT ONE (14:30)
[2019-08-27] MEDS ORDERED: CALCIUM CHLORIDE 1GM/10ML SYR IV ONE (14:30)
[2019-08-27] MEDS: PANTOPRAZOLE SODIUM 40 MG/VIAL IV SCH ×2 (14:51→22:19)
[2019-08-27] MEDS ORDERED: CALCIUM CHLORIDE IV SCH (15:15)
[2019-08-27] MEDS ORDERED: DEXTROSE 5% IV SCH (15:15)
[2019-08-27] MEDS ORDERED: WATER IV SCH (15:15)
[2019-08-27 17:08] LABS: HEMATOCRIT 20.8 % (42.0-52.0); HEMOGLOBIN 6.5 g/dL (14.0-18.0)
[2019-08-27] MEDS: MEROPENEM 1,000 MG in SODIUM CHLORIDE 0.9% 100 ML IV SCH ×2 (17:28→23:26)
[2019-08-27 17:43] LABS: HEMOGLOBIN 6.5 g/dL (14.0-18.0)
[2019-08-27 17:44] LABS: HEMATOCRIT 20.8 % (42.0-52.0)
[2019-08-27] MEDS ORDERED: INSULIN LISPRO 100 UNITS/ML SUBCUT NR (22:15)
[2019-08-27] MEDS ORDERED: INSULIN GLARGINE UD 100 UNITS/ML SYR SUBCUT SCH (22:30)
[2019-08-28] VITALS (97 sets, daily range): BP systolic 85–143; BP diastolic 39–82
[2019-08-28] MEDS: IPRATROPIUM/ALBUTEROL 0.5-3(2.5)MG/3ML NEB HHN SCH ×6 (00:32→20:22)
[2019-08-28 01:07] LABS: HEMATOCRIT 22.1 % (42.0-52.0); HEMOGLOBIN 7.3 g/dL (14.0-18.0)
[2019-08-28] MEDS: DEXT 5%/0.45% NACL 1000ML 1,000 ML IV SCH ×2 (04:25→12:55)
[2019-08-28] MEDS: NOREPINEPHRINE 8 MG in DEXT 5% WATER 242 ML IV PRN (07:02)
[2019-08-28] MEDS: BLOOD SUGAR DIAGNOSTIC STRIP TEST SCH ×4 (07:50→21:08)
[2019-08-28 07:58] LABS: HEMATOCRIT. 26.3 % (42.0-52.0); HEMOGLOBIN. 8.6 g/dL (14.0-18.0); MEAN CORPUSCULAR HEMOGLOBIN 27.7 pg (28.0-32.0); MEAN CORPUSCULAR VOLUME 84.3 fL (80.0-94.0); PLATELET 166 x1000/uL (130-400); RED BLOOD CELL COUNT 3.12 mill/uL (4.7-6.1); RED CELL DISTRIBUTION WIDTH 17.9 % (11.6-14.6)
[2019-08-28] MEDS: MEROPENEM 1,000 MG in SODIUM CHLORIDE 0.9% 100 ML IV SCH ×2 (09:01→21:21)
[2019-08-28] MEDS: PANTOPRAZOLE SODIUM 40 MG/VIAL IV SCH ×2 (09:01→21:21)
[2019-08-28] MEDS: INSULIN LISPRO 100 UNITS/ML SUBCUT SCH ×4 (09:17→21:22)
[2019-08-28 09:38] LABS: BG CARBOXYHEMOGLOBIN 0.3 % (0.5-1.5); BG DEOXYHEMOGLOBIN 3.4 % (0.0-5.0); BG FRACTION INSPIRED OXYGEN 45; BG HCO3 ACT 24.9 mmol/L (22.0-26.0); BG METHEMOGLOBIN 0.2 % (0.0-1.5); BG OXYGEN SATURATION 96.6 % (92.0-98.5); BG OXYHEMOGLOBIN 96.1 % (94.0-97.0); BG PCO2 41.8 mmHg (35.0-45.0); BG PH 7.393 (7.350-7.450); BG PO2 90.2 mmHg (75.0-100.0); BG SAMPLE SITE RIGHT RADIAL; BG TIDAL VOLUME(mL) 500 mL; BG TOTAL HEMOGLOBIN 10.9 g/dL (12.0-18.0); BG VENT MODE VENT - A/C; BG VENT RATE 14 set
[2019-08-28 11:12] LABS: PLATELET ESTIMATE NORMAL
[2019-08-28 12:39] LABS: HEMATOCRIT 26.5 % (42.0-52.0); HEMOGLOBIN 8.7 g/dL (14.0-18.0)
[2019-08-28] MEDS ORDERED: VANCOMYCIN 1250MG in DEXTROSE 5% WATER 250ML IV NR (15:00)
[2019-08-28 18:02] LABS: HEMATOCRIT 26.4 % (42.0-52.0); HEMOGLOBIN 8.5 g/dL (14.0-18.0)
[2019-08-28] MEDS: INSULIN GLARGINE UD 100 UNITS/ML SYR SUBCUT SCH (21:22)
[2019-08-29] VITALS (93 sets, daily range): BP systolic 96–129; BP diastolic 54–84
[2019-08-29] MEDS: IPRATROPIUM/ALBUTEROL 0.5-3(2.5)MG/3ML NEB HHN SCH ×6 (00:25→20:54)
[2019-08-29 00:28] LABS: HEMATOCRIT 26.2 % (42.0-52.0); HEMOGLOBIN 8.6 g/dL (14.0-18.0)
[2019-08-29] MEDS: DEXT 5%/0.45% NACL 1000ML 1,000 ML IV SCH (01:50)
[2019-08-29] MEDS: NOREPINEPHRINE 8 MG in DEXT 5% WATER 242 ML IV PRN (05:20)
[2019-08-29 05:32] LABS: HEMATOCRIT. 27.4 % (42.0-52.0); MEAN CORPUSCULAR HEMOGLOBIN 27.4 pg (28.0-32.0); MEAN CORPUSCULAR VOLUME 83.5 fL (80.0-94.0); MEAN PLATELET VOLUME 9.5 fl (7.4-10.4); PLATELET 140 x1000/uL (130-400); RED BLOOD CELL COUNT 3.29 mill/uL (4.7-6.1); RED CELL DISTRIBUTION WIDTH 18.5 % (11.6-14.6)
[2019-08-29 05:49] LABS: PHOSPHORUS 4.9 mg/dL (2.5-4.9)
[2019-08-29 07:06] LABS: PLATELET ESTIMATE NORMAL
[2019-08-29] MEDS: BLOOD SUGAR DIAGNOSTIC STRIP TEST SCH ×4 (07:50→20:21)
[2019-08-29] MEDS: SODIUM CHLORIDE 0.9% 1,000 ML IV SCH ×2 (08:00→23:45)
[2019-08-29] MEDS ORDERED: POTASSIUM CHLORIDE 20MEQ/PACKET PO NR (08:00)
[2019-08-29] MEDS: MEROPENEM 1,000 MG in SODIUM CHLORIDE 0.9% 100 ML IV SCH ×2 (09:00→20:58)
[2019-08-29] MEDS: SODIUM HYPOCHLORITE 0.125% 473ML SOLUTION TOP SCH ×3 (09:00→21:00)
[2019-08-29] MEDS: PANTOPRAZOLE SODIUM 40 MG/VIAL IV SCH ×2 (09:10→20:58)
[2019-08-29] MEDS: INSULIN LISPRO 100 UNITS/ML SUBCUT SCH ×4 (10:11→20:59)
[2019-08-29] MEDS ORDERED: NOREPINEPHRINE 8 MG in DEXT 5% WATER 242 ML IV PRN (12:30)
[2019-08-29] MEDS ORDERED: VANCOMYCIN 1 G PREMIX 200 ML IV NR (21:00)
[2019-08-29] MEDS: INSULIN GLARGINE UD 100 UNITS/ML SYR SUBCUT SCH (21:41)
[2019-08-30] VITALS (59 sets, daily range): BP systolic 89–121; BP diastolic 53–82
[2019-08-30] MEDS: IPRATROPIUM/ALBUTEROL 0.5-3(2.5)MG/3ML NEB HHN SCH ×6 (00:15→21:05)
[2019-08-30 05:48] LABS: CHLORIDE 103 mEq/L (98-107); HEMATOCRIT. 26.6 % (42.0-52.0); HEMOGLOBIN. 8.8 g/dL (14.0-18.0); MEAN CORPUSCULAR HEMOGLOBIN 27.5 pg (28.0-32.0); MEAN CORPUSCULAR VOLUME 83.3 fL (80.0-94.0); MEAN PLATELET VOLUME 9.9 fl (7.4-10.4); PLATELET 116 x1000/uL (130-400); RED BLOOD CELL COUNT 3.19 mill/uL (4.7-6.1); RED CELL DISTRIBUTION WIDTH 18.5 % (11.6-14.6)
[2019-08-30 05:58] LABS: PHOSPHORUS 4.4 mg/dL (2.5-4.9)
[2019-08-30] MEDS: PANTOPRAZOLE SODIUM 40 MG/VIAL IV SCH ×2 (08:24→21:28)
[2019-08-30] MEDS: BLOOD SUGAR DIAGNOSTIC STRIP TEST SCH ×4 (08:24→21:28)
[2019-08-30] MEDS: MEROPENEM 1,000 MG in SODIUM CHLORIDE 0.9% 100 ML IV SCH ×2 (08:24→21:28)
[2019-08-30] MEDS: SODIUM HYPOCHLORITE 0.125% 473ML SOLUTION TOP SCH ×2 (08:27→21:29)
[2019-08-30] MEDS: INSULIN LISPRO 100 UNITS/ML SUBCUT SCH ×4 (08:28→21:00)
[2019-08-30 08:49] LABS: PLATELET ESTIMATE DECREASED
[2019-08-30] MEDS ORDERED: POTASSIUM CHLORIDE INJ 40 MEQ in DEXT 5% WATER 250 ML IV SCH (09:30)
[2019-08-30] MEDS ORDERED: LIDOCAINE HCL/EPINEPHRINE 1%-EPI 1:100,000 30 ML VIAL INFIL SCH (13:00)
[2019-08-30] MEDS ORDERED: LIDOCAINE HCL/EPINEPHRINE 1%-EPI 1:100,000 20 ML VIAL INFIL SCH (15:30)
[2019-08-30] MEDS: SODIUM CHLORIDE 0.9% 1,000 ML IV SCH (19:06)
[2019-08-30] MEDS: INSULIN GLARGINE UD 100 UNITS/ML SYR SUBCUT SCH (21:51)
[2019-08-31] VITALS (12 sets, daily range): BP systolic 101–118; BP diastolic 58–77
[2019-08-31] MEDS: IPRATROPIUM/ALBUTEROL 0.5-3(2.5)MG/3ML NEB HHN SCH ×5 (00:42→20:30)
[2019-08-31] MEDS: VANCOMYCIN 1 G PREMIX 200 ML IV SCH (01:31)
[2019-08-31 06:16] LABS: HEMATOCRIT. 28.9 % (42.0-52.0); HEMOGLOBIN. 9.4 g/dL (14.0-18.0); MEAN CORPUSCULAR HEMOGLOBIN 27.4 pg (28.0-32.0); MEAN CORPUSCULAR VOLUME 84.5 fL (80.0-94.0); MEAN PLATELET VOLUME 9.9 fl (7.4-10.4); PLATELET 113 x1000/uL (130-400); RED BLOOD CELL COUNT 3.42 mill/uL (4.7-6.1); RED CELL DISTRIBUTION WIDTH 18.6 % (11.6-14.6)
[2019-08-31 06:30] LABS: CHLORIDE 106 mEq/L (98-107)
[2019-08-31 06:45] LABS: PHOSPHORUS 4.2 mg/dL (2.5-4.9)
[2019-08-31] MEDS: BLOOD SUGAR DIAGNOSTIC STRIP TEST SCH ×4 (07:30→20:46)
[2019-08-31] MEDS: INSULIN LISPRO 100 UNITS/ML SUBCUT SCH ×4 (08:00→20:45)
[2019-08-31] MEDS: MEROPENEM 1,000 MG in SODIUM CHLORIDE 0.9% 100 ML IV SCH ×2 (08:25→20:43)
[2019-08-31] MEDS: PANTOPRAZOLE SODIUM 40 MG/VIAL IV SCH ×2 (08:25→20:44)
[2019-08-31] MEDS: SODIUM HYPOCHLORITE 0.125% 473ML SOLUTION TOP SCH ×2 (08:27→21:06)
[2019-08-31] MEDS ORDERED: POTASSIUM CHLORIDE 20MEQ/PACKET PO NR (09:01)
[2019-08-31 10:00] LABS: PLATELET ESTIMATE DECREASED
[2019-08-31] MEDS ORDERED: POTASSIUM CHLORIDE INJ 40 MEQ in DEXT 5% WATER 250 ML IV NR (10:00)
[2019-08-31] MEDS ORDERED: POTASSIUM CHLORIDE 20MEQ/PACKET PO ONE (21:00)
[2019-08-31] MEDS: INSULIN GLARGINE UD 100 UNITS/ML SYR SUBCUT SCH (21:06)
[2019-09-01] VITALS (12 sets, daily range): BP systolic 111–139; BP diastolic 60–81
[2019-09-01] MEDS: VANCOMYCIN 1 G PREMIX 200 ML IV SCH (00:17)
[2019-09-01] MEDS: IPRATROPIUM/ALBUTEROL 0.5-3(2.5)MG/3ML NEB HHN SCH ×6 (00:38→20:24)
[2019-09-01 06:01] LABS: CHLORIDE 113 mEq/L (98-107)
[2019-09-01 06:05] LABS: HEMATOCRIT. 26.6 % (42.0-52.0); HEMOGLOBIN. 8.6 g/dL (14.0-18.0); MEAN CORPUSCULAR HEMOGLOBIN 27.5 pg (28.0-32.0); MEAN CORPUSCULAR VOLUME 84.9 fL (80.0-94.0); MEAN PLATELET VOLUME 9.6 fl (7.4-10.4); PLATELET 121 x1000/uL (130-400); RED BLOOD CELL COUNT 3.14 mill/uL (4.7-6.1); RED CELL DISTRIBUTION WIDTH 18.9 % (11.6-14.6)
[2019-09-01 06:06] LABS: PHOSPHORUS 3.5 mg/dL (2.5-4.9)
[2019-09-01] MEDS: BLOOD SUGAR DIAGNOSTIC STRIP TEST SCH ×4 (08:00→21:04)
[2019-09-01] MEDS: PANTOPRAZOLE SODIUM 40 MG/VIAL IV SCH ×2 (08:23→21:04)
[2019-09-01] MEDS: ZINC SULFATE 220 MG ( 50 ) CAPSULE PO SCH (08:23)
[2019-09-01] MEDS: ASCORBIC ACID 500 MG TABLET PO SCH (08:23)
[2019-09-01] MEDS: MEROPENEM 1,000 MG in SODIUM CHLORIDE 0.9% 100 ML IV SCH ×2 (08:44→21:04)
[2019-09-01] MEDS: SODIUM HYPOCHLORITE 0.125% 473ML SOLUTION TOP SCH ×2 (08:54→21:05)
[2019-09-01] MEDS: INSULIN LISPRO 100 UNITS/ML SUBCUT SCH ×4 (08:55→21:20)
[2019-09-01 09:04] LABS: PLATELET ESTIMATE NORMAL
[2019-09-01] MEDS: POTASSIUM CHLORIDE 20MEQ/PACKET PO SCH (09:22)
[2019-09-01] MEDS: LEVETIRACETAM 250MG TABLET GT SCH ×2 (12:31→21:04)
[2019-09-01] MEDS: INSULIN GLARGINE UD 100 UNITS/ML SYR SUBCUT SCH (21:20)
[2019-09-02] VITALS (11 sets, daily range): BP systolic 121–145; BP diastolic 70–87
[2019-09-02] MEDS: IPRATROPIUM/ALBUTEROL 0.5-3(2.5)MG/3ML NEB HHN SCH ×6 (00:21→20:40)
[2019-09-02] MEDS: VANCOMYCIN 1 G PREMIX 200 ML IV SCH (00:30)
[2019-09-02 07:22] LABS: HEMATOCRIT. 27.1 % (42.0-52.0); HEMOGLOBIN. 8.7 g/dL (14.0-18.0); MEAN CORPUSCULAR HEMOGLOBIN 27.3 pg (28.0-32.0); MEAN PLATELET VOLUME 9.4 fl (7.4-10.4); PLATELET 151 x1000/uL (130-400); RED BLOOD CELL COUNT 3.19 mill/uL (4.7-6.1); RED CELL DISTRIBUTION WIDTH 19.5 % (11.6-14.6)
[2019-09-02 07:36] LABS: CHLORIDE 117 mEq/L (98-107)
[2019-09-02] MEDS: BLOOD SUGAR DIAGNOSTIC STRIP TEST SCH ×4 (07:52→23:51)
[2019-09-02] MEDS: INSULIN LISPRO 100 UNITS/ML SUBCUT SCH ×4 (08:23→23:53)
[2019-09-02] MEDS: PANTOPRAZOLE SODIUM 40 MG/VIAL IV SCH ×2 (09:41→20:43)
[2019-09-02] MEDS: ASCORBIC ACID 500 MG TABLET PO SCH (09:42)
[2019-09-02] MEDS: LEVETIRACETAM 250MG TABLET GT SCH ×2 (09:42→20:43)
[2019-09-02] MEDS: ZINC SULFATE 220 MG ( 50 ) CAPSULE PO SCH (09:42)
[2019-09-02] MEDS: SODIUM HYPOCHLORITE 0.125% 473ML SOLUTION TOP SCH ×2 (09:55→20:43)
[2019-09-02] MEDS: MEROPENEM 1,000 MG in SODIUM CHLORIDE 0.9% 100 ML IV SCH ×2 (09:55→20:43)
[2019-09-02] MEDS: POTASSIUM CHLORIDE 20MEQ/PACKET PO SCH (09:55)
[2019-09-02] MEDS ORDERED: DEXT 5% WATER 250 ML IV ONE (12:45)
[2019-09-02] MEDS: ACETAMINOPHEN 650MG/20.3ML UDC PO PRN (16:19)
[2019-09-02] MEDS ORDERED: INSULIN LISPRO 100 UNITS/ML SUBCUT SCH (20:00)
[2019-09-02 20:17] LABS: PLATELET ESTIMATE NORMAL
[2019-09-02] MEDS: VANCOMYCIN 750 MG PREMIX 150 ML IV SCH (22:50)
[2019-09-02] MEDS: INSULIN GLARGINE UD 100 UNITS/ML SYR SUBCUT SCH (22:51)
[2019-09-03] VITALS (12 sets, daily range): BP systolic 129–147; BP diastolic 69–82
[2019-09-03] MEDS: IPRATROPIUM/ALBUTEROL 0.5-3(2.5)MG/3ML NEB HHN SCH ×6 (00:18→20:02)
[2019-09-03] MEDS: ACETAMINOPHEN 650MG/20.3ML UDC PO PRN ×3 (00:25→15:53)
[2019-09-03] MEDS: BLOOD SUGAR DIAGNOSTIC STRIP TEST SCH ×3 (05:15→17:21)
[2019-09-03] MEDS: INSULIN LISPRO 100 UNITS/ML SUBCUT SCH ×3 (05:15→17:21)
[2019-09-03 07:50] LABS: CHLORIDE 122 mEq/L (98-107)
[2019-09-03 08:53] LABS: HEMATOCRIT. 27.3 % (42.0-52.0); HEMOGLOBIN. 8.6 g/dL (14.0-18.0); MEAN CORPUSCULAR VOLUME 85.7 fL (80.0-94.0); MEAN PLATELET VOLUME 8.9 fl (7.4-10.4); PLATELET 170 x1000/uL (130-400); RED BLOOD CELL COUNT 3.18 mill/uL (4.7-6.1); RED CELL DISTRIBUTION WIDTH 18.8 % (11.6-14.6)
[2019-09-03] MEDS: MEROPENEM 1,000 MG in SODIUM CHLORIDE 0.9% 100 ML IV SCH ×2 (09:13→22:01)
[2019-09-03] MEDS: ZINC SULFATE 220 MG ( 50 ) CAPSULE PO SCH (09:13)
[2019-09-03] MEDS: POTASSIUM CHLORIDE 20MEQ/PACKET PO SCH (09:13)
[2019-09-03] MEDS: LEVETIRACETAM 250MG TABLET GT SCH ×2 (09:13→22:01)
[2019-09-03] MEDS: SODIUM HYPOCHLORITE 0.125% 473ML SOLUTION TOP SCH ×2 (09:13→22:02)
[2019-09-03] MEDS: ASCORBIC ACID 500 MG TABLET PO SCH (09:13)
[2019-09-03] MEDS: PANTOPRAZOLE SODIUM 40 MG/VIAL IV SCH ×2 (09:13→22:01)
[2019-09-03 09:55] LABS: PLATELET ESTIMATE NORMAL
[2019-09-03] MEDS ORDERED: DEXT 5% WATER + KCL 20MEQ/L 1,000 ML IV SCH (15:00)
[2019-09-03] MEDS: VANCOMYCIN 750 MG PREMIX 150 ML IV SCH (17:21)
[2019-09-03] MEDS: INSULIN GLARGINE UD 100 UNITS/ML SYR SUBCUT SCH (22:15)
[2019-09-04] VITALS (12 sets, daily range): BP systolic 117–138; BP diastolic 67–85
[2019-09-04] MEDS: IPRATROPIUM/ALBUTEROL 0.5-3(2.5)MG/3ML NEB HHN SCH ×6 (00:07→21:06)
[2019-09-04] MEDS: BLOOD SUGAR DIAGNOSTIC STRIP TEST SCH ×4 (06:00→17:51)
[2019-09-04] MEDS: INSULIN LISPRO 100 UNITS/ML SUBCUT SCH ×4 (06:16→17:51)
[2019-09-04 06:48] LABS: HEMATOCRIT. 27.6 % (42.0-52.0); HEMOGLOBIN. 8.5 g/dL (14.0-18.0); MEAN CORPUSCULAR VOLUME 87.1 fL (80.0-94.0); MEAN PLATELET VOLUME 9.9 fl (7.4-10.4); PLATELET 191 x1000/uL (130-400); RED BLOOD CELL COUNT 3.16 mill/uL (4.7-6.1); RED CELL DISTRIBUTION WIDTH 19.1 % (11.6-14.6)
[2019-09-04 07:11] LABS: CHLORIDE 125 mEq/L (98-107)
[2019-09-04] MEDS: POTASSIUM CHLORIDE 20MEQ/PACKET PO SCH (08:23)
[2019-09-04] MEDS: LEVETIRACETAM 250MG TABLET GT SCH ×2 (08:24→21:10)
[2019-09-04] MEDS: ASCORBIC ACID 500 MG TABLET PO SCH (08:24)
[2019-09-04] MEDS: ACETAMINOPHEN 650MG/20.3ML UDC PO PRN (08:24)
[2019-09-04] MEDS: PANTOPRAZOLE SODIUM 40 MG/VIAL IV SCH ×2 (08:24→21:10)
[2019-09-04] MEDS: ZINC SULFATE 220 MG ( 50 ) CAPSULE PO SCH (08:25)
[2019-09-04] MEDS: MEROPENEM 1,000 MG in SODIUM CHLORIDE 0.9% 100 ML IV SCH ×2 (09:00→20:29)
[2019-09-04] MEDS ORDERED: DEXTROSE 5% WATER 1,000 ML IV SCH (09:30)
[2019-09-04] MEDS: SODIUM HYPOCHLORITE 0.125% 473ML SOLUTION TOP SCH ×2 (10:00→22:30)
[2019-09-04 11:40] LABS: PLATELET ESTIMATE NORMAL
[2019-09-04] MEDS: VANCOMYCIN 750 MG PREMIX 150 ML IV SCH (13:23)
[2019-09-04] MEDS: INSULIN GLARGINE UD 100 UNITS/ML SYR SUBCUT SCH (22:31)
[2019-09-05] VITALS (12 sets, daily range): BP systolic 106–139; BP diastolic 65–97
[2019-09-05] MEDS: IPRATROPIUM/ALBUTEROL 0.5-3(2.5)MG/3ML NEB HHN SCH ×6 (00:42→20:54)
[2019-09-05] MEDS: ACETYLCYSTEINE 100MG/ML 10% VIAL 4ML INH SCH ×3 (00:42→16:26)
[2019-09-05] MEDS: VANCOMYCIN 750 MG PREMIX 150 ML IV SCH ×2 (04:28→20:52)
[2019-09-05] MEDS: INSULIN LISPRO 100 UNITS/ML SUBCUT SCH ×4 (06:00→17:47)
[2019-09-05 06:02] LABS: HEMATOCRIT. 26.8 % (42.0-52.0); HEMOGLOBIN. 8.3 g/dL (14.0-18.0); MEAN CORPUSCULAR VOLUME 87.1 fL (80.0-94.0); MEAN PLATELET VOLUME 10.1 fl (7.4-10.4); PLATELET 193 x1000/uL (130-400); RED BLOOD CELL COUNT 3.08 mill/uL (4.7-6.1); RED CELL DISTRIBUTION WIDTH 19.2 % (11.6-14.6)
[2019-09-05 06:02] LABS: CHLORIDE 124 mEq/L (98-107)
[2019-09-05] MEDS: BLOOD SUGAR DIAGNOSTIC STRIP TEST SCH ×4 (06:12→17:46)
[2019-09-05] MEDS: ZINC SULFATE 220 MG ( 50 ) CAPSULE PO SCH (08:59)
[2019-09-05] MEDS: LEVETIRACETAM 250MG TABLET GT SCH ×2 (08:59→20:52)
[2019-09-05] MEDS: PANTOPRAZOLE SODIUM 40 MG/VIAL IV SCH ×2 (08:59→20:51)
[2019-09-05] MEDS: ASCORBIC ACID 500 MG TABLET PO SCH (09:00)
[2019-09-05] MEDS ORDERED: SODIUM POLYSTYRENE SULFONATE 15 G/60 ML BOT PO SCH (09:00)
[2019-09-05 09:11] LABS: PLATELET ESTIMATE NORMAL
[2019-09-05] MEDS: SODIUM HYPOCHLORITE 0.125% 473ML SOLUTION TOP SCH ×2 (10:22→20:53)
[2019-09-05] MEDS: MEROPENEM 1,000 MG in SODIUM CHLORIDE 0.9% 100 ML IV SCH ×2 (11:35→20:51)
[2019-09-05] MEDS: ACETAMINOPHEN 650MG/20.3ML UDC PO PRN ×2 (13:04→20:51)
[2019-09-05] MEDS: INSULIN GLARGINE UD 100 UNITS/ML SYR SUBCUT SCH (22:44)
[2019-09-06] VITALS (12 sets, daily range): BP systolic 103–147; BP diastolic 64–84
[2019-09-06] MEDS: IPRATROPIUM/ALBUTEROL 0.5-3(2.5)MG/3ML NEB HHN SCH ×6 (00:52→20:15)
[2019-09-06] MEDS: ACETYLCYSTEINE 100MG/ML 10% VIAL 4ML INH SCH ×3 (00:52→15:15)
[2019-09-06] MEDS: INSULIN LISPRO 100 UNITS/ML SUBCUT SCH ×4 (01:49→17:09)
[2019-09-06] MEDS: BLOOD SUGAR DIAGNOSTIC STRIP TEST SCH ×4 (06:00→17:09)
[2019-09-06 06:59] LABS: BASOPHILS % 0.8 % (0.0-2.0); EOSINOPHILS % 5.7 % (0.0-5.0); LYMPHOCYTES % 7.3 % (20.0-50.0); MEAN CORPUSCULAR HEMOGLOBIN 26.9 pg (28.0-32.0); MEAN CORPUSCULAR VOLUME 87.2 fL (80.0-94.0); MEAN PLATELET VOLUME 10.3 fl (7.4-10.4); MONOCYTES % 4.4 % (2.0-8.0); NEUTROPHILS % 81.8 % (40.0-76.0); PLATELET 214 x1000/uL (130-400); RED BLOOD CELL COUNT 2.99 mill/uL (4.7-6.1)
[2019-09-06 07:16] LABS: CHLORIDE 124 mEq/L (98-107)
[2019-09-06] MEDS: ZINC SULFATE 220 MG ( 50 ) CAPSULE PO SCH (09:53)
[2019-09-06] MEDS: LEVETIRACETAM 250MG TABLET GT SCH ×2 (09:53→21:51)
[2019-09-06] MEDS: PANTOPRAZOLE SODIUM 40 MG/VIAL IV SCH ×2 (09:53→21:52)
[2019-09-06] MEDS: MEROPENEM 1,000 MG in SODIUM CHLORIDE 0.9% 100 ML IV SCH ×2 (09:54→21:51)
[2019-09-06] MEDS: SODIUM HYPOCHLORITE 0.125% 473ML SOLUTION TOP SCH ×2 (09:54→21:52)
[2019-09-06] MEDS: ASCORBIC ACID 500 MG TABLET PO SCH (09:55)
[2019-09-06] MEDS: VANCOMYCIN 1250MG in DEXTROSE 5% WATER 250ML IV SCH (16:42)
[2019-09-06] MEDS: ACETAMINOPHEN 650MG/20.3ML UDC PO PRN (21:51)
[2019-09-06] MEDS: INSULIN GLARGINE UD 100 UNITS/ML SYR SUBCUT SCH (23:05)
[2019-09-07] VITALS (12 sets, daily range): BP systolic 109–145; BP diastolic 59–92
[2019-09-07] MEDS: IPRATROPIUM/ALBUTEROL 0.5-3(2.5)MG/3ML NEB HHN SCH ×6 (00:32→20:40)
[2019-09-07] MEDS: ACETYLCYSTEINE 100MG/ML 10% VIAL 4ML INH SCH ×3 (00:32→16:19)
[2019-09-07] MEDS: INSULIN LISPRO 100 UNITS/ML SUBCUT SCH ×5 (06:00→23:14)
[2019-09-07] MEDS: BLOOD SUGAR DIAGNOSTIC STRIP TEST SCH ×5 (06:00→23:14)
[2019-09-07 07:40] LABS: BASOPHILS % 0.5 % (0.0-2.0); EOSINOPHILS % 5.3 % (0.0-5.0); HEMATOCRIT. 24.4 % (42.0-52.0); HEMOGLOBIN. 7.5 g/dL (14.0-18.0); LYMPHOCYTES % 8.1 % (20.0-50.0); MEAN CORPUSCULAR HEMOGLOBIN 26.5 pg (28.0-32.0); MEAN CORPUSCULAR VOLUME 86.6 fL (80.0-94.0); MEAN PLATELET VOLUME 10.4 fl (7.4-10.4); MONOCYTES % 4.6 % (2.0-8.0); NEUTROPHILS % 81.5 % (40.0-76.0); PLATELET 225 x1000/uL (130-400); RED BLOOD CELL COUNT 2.82 mill/uL (4.7-6.1); RED CELL DISTRIBUTION WIDTH 19.2 % (11.6-14.6)
[2019-09-07 07:50] LABS: CHLORIDE 122 mEq/L (98-107)
[2019-09-07] MEDS: LEVETIRACETAM 250MG TABLET GT SCH ×2 (09:56→20:11)
[2019-09-07] MEDS: MEROPENEM 1,000 MG in SODIUM CHLORIDE 0.9% 100 ML IV SCH ×2 (09:56→20:10)
[2019-09-07] MEDS: ASCORBIC ACID 500 MG TABLET PO SCH (09:56)
[2019-09-07] MEDS: ZINC SULFATE 220 MG ( 50 ) CAPSULE PO SCH (09:56)
[2019-09-07] MEDS: PANTOPRAZOLE SODIUM 40 MG/VIAL IV SCH ×2 (09:57→20:11)
[2019-09-07] MEDS: SODIUM HYPOCHLORITE 0.125% 473ML SOLUTION TOP SCH ×2 (09:57→20:11)
[2019-09-07] MEDS ORDERED: FUROSEMIDE 40MG/4ML VIAL IVP NR (11:30)
[2019-09-07] MEDS: VANCOMYCIN 1250MG in DEXTROSE 5% WATER 250ML IV SCH (16:09)
[2019-09-07] MEDS: INSULIN GLARGINE UD 100 UNITS/ML SYR SUBCUT SCH (23:16)
[2019-09-08] VITALS (10 sets, daily range): BP systolic 118–156; BP diastolic 66–87
[2019-09-08] MEDS: IPRATROPIUM/ALBUTEROL 0.5-3(2.5)MG/3ML NEB HHN SCH ×5 (00:22→16:31)
[2019-09-08] MEDS: ACETYLCYSTEINE 100MG/ML 10% VIAL 4ML INH SCH ×3 (00:22→16:31)
[2019-09-08 05:43] LABS: BASOPHILS % 0.7 % (0.0-2.0); HEMOGLOBIN. 8.3 g/dL (14.0-18.0); LYMPHOCYTES % 7.8 % (20.0-50.0); MEAN CORPUSCULAR HEMOGLOBIN 26.5 pg (28.0-32.0); MEAN CORPUSCULAR VOLUME 85.8 fL (80.0-94.0); MEAN PLATELET VOLUME 10.6 fl (7.4-10.4); MONOCYTES % 4.4 % (2.0-8.0); NEUTROPHILS % 82.1 % (40.0-76.0); PLATELET 231 x1000/uL (130-400); RED BLOOD CELL COUNT 3.14 mill/uL (4.7-6.1); RED CELL DISTRIBUTION WIDTH 19.1 % (11.6-14.6)
[2019-09-08 05:49] LABS: CHLORIDE 119 mEq/L (98-107)
[2019-09-08] MEDS: BLOOD SUGAR DIAGNOSTIC STRIP TEST SCH ×2 (05:54→12:00)
[2019-09-08] MEDS: INSULIN LISPRO 100 UNITS/ML SUBCUT SCH ×2 (05:54→12:00)
[2019-09-08] MEDS: LEVETIRACETAM 250MG TABLET GT SCH (08:59)
[2019-09-08] MEDS: MEROPENEM 1,000 MG in SODIUM CHLORIDE 0.9% 100 ML IV SCH (08:59)
[2019-09-08] MEDS: ASCORBIC ACID 500 MG TABLET PO SCH (08:59)
[2019-09-08] MEDS: PANTOPRAZOLE SODIUM 40 MG/VIAL IV SCH (08:59)
[2019-09-08] MEDS: ZINC SULFATE 220 MG ( 50 ) CAPSULE PO SCH (08:59)
[2019-09-08] MEDS: SODIUM HYPOCHLORITE 0.125% 473ML SOLUTION TOP SCH (09:00)
[2019-09-08] MEDS: VANCOMYCIN 1250MG in DEXTROSE 5% WATER 250ML IV SCH (16:15)
== END 2019-09-08 17:37 | DRG 853 ==
LOC: ER 02:02 → CVICU 04:12 → EDBEDREQTM 04:15 → EDBEDREQ 04:15 → ENRESERV 07:28 → 5EST 08-30 17:25
PROVIDERS: ADMIT Family Medicine Adult Medicine; ATTEND Family Medicine Adult Medicine
PROC: 5A1955Z Respiratory Ventilation, Greater than 96 Consecutive Hours (ICD-10-PCS; 2019-08-27)
PROC: 30233N1 Transfusion of Nonautologous Red Blood Cells into Peripheral Vein, Percutaneous Approach (ICD-10-PCS; 2019-08-27)
PROC: 0KBN0ZZ Excision of Right Hip Muscle, Open Approach (ICD-10-PCS; principal; 2019-08-30)
DX: A41.59 Other Gram-negative sepsis (principal); N17.0 Acute kidney failure with tubular necrosis; K72.00 Acute and subacute hepatic failure without coma; R65.21 Severe sepsis with septic shock; J96.20 Acute and chronic respiratory failure, unspecified whether with hypoxia or hypercapnia; E43 Unspecified severe protein-calorie malnutrition; J69.0 Pneumonitis due to inhalation of food and vomit; I46.9 Cardiac arrest, cause unspecified; N39.0 Urinary tract infection, site not specified; I42.9 Cardiomyopathy, unspecified; D68.9 Coagulation defect, unspecified; E87.1 Hypo-osmolality and hyponatremia; E87.0 Hyperosmolality and hypernatremia; E87.2 Acidosis; L97.409 Non-pressure chronic ulcer of unspecified heel and midfoot with unspecified severity; I69.351 Hemiplegia and hemiparesis following cerebral infarction affecting right dominant side; G93.49 Other encephalopathy; L89.899 Pressure ulcer of other site, unspecified stage; L89.210 Pressure ulcer of right hip, unstageable; L89.329 Pressure ulcer of left buttock, unspecified stage; L89.150 Pressure ulcer of sacral region, unstageable; L89.019 Pressure ulcer of right elbow, unspecified stage; D50.9 Iron deficiency anemia, unspecified; E11.22 Type 2 diabetes mellitus with diabetic chronic kidney disease; L89.90 Pressure ulcer of unspecified site, unspecified stage; E87.5 Hyperkalemia; E11.51 Type 2 diabetes mellitus with diabetic peripheral angiopathy without gangrene; E78.00 Pure hypercholesterolemia, unspecified; E78.5 Hyperlipidemia, unspecified; E87.6 Hypokalemia; G40.909 Epilepsy, unspecified, not intractable, without status epilepticus; I07.1 Rheumatic tricuspid insufficiency; I13.10 Hypertensive heart and chronic kidney disease without heart failure, with stage 1 through stage 4 chronic kidney disease, or unspecified chronic kidney disease; I25.10 Atherosclerotic heart disease of native coronary artery without angina pectoris; I27.20 Pulmonary hypertension, unspecified; I35.8 Other nonrheumatic aortic valve disorders; I45.10 Unspecified right bundle-branch block; I48.0 Paroxysmal atrial fibrillation; N18.1 Chronic kidney disease, stage 1; J44.9 Chronic obstructive pulmonary disease, unspecified; K44.9 Diaphragmatic hernia without obstruction or gangrene; E11.621 Type 2 diabetes mellitus with foot ulcer; R74.0 Nonspecific elevation of levels of transaminase and lactic acid dehydrogenase [LDH]; N40.0 Benign prostatic hyperplasia without lower urinary tract symptoms; R91.1 Solitary pulmonary nodule; K21.9 Gastro-esophageal reflux disease without esophagitis; R47.02 Dysphasia; S70.321A Blister (nonthermal), right thigh, initial encounter; X58.XXXA Exposure to other specified factors, initial encounter; R62.7 Adult failure to thrive; Z68.26 Body mass index [BMI] 26.0-26.9, adult; Z93.0 Tracheostomy status; I25.2 Old myocardial infarction; Z22.322 Carrier or suspected carrier of Methicillin resistant Staphylococcus aureus; Z87.19 Personal history of other diseases of the digestive system; Z74.01 Bed confinement status; Z79.4 Long term (current) use of insulin; Z86.19 Personal history of other infectious and parasitic diseases; Z86.718 Personal history of other venous thrombosis and embolism; Z87.01 Personal history of pneumonia (recurrent); Z87.11 Personal history of peptic ulcer disease; Z93.1 Gastrostomy status; Z95.1 Presence of aortocoronary bypass graft; Z99.81 Dependence on supplemental oxygen; Z79.899 Other long term (current) drug therapy; Y93.89 Activity, other specified; Y92.89 Other specified places as the place of occurrence of the external cause; Y99.8 Other external cause status
CPT/HCPCS: 36415; 36430; 36556; 36600; 51702; 71045; 76700; 80048; 80061; 80076; 80202; 81003; 82140; 82150; 82270; 82375; 82728; 82805; 82962; 83036; 83540; 83550; 83605; 83735; 84100; 84132; 84134; 84145; 84443; 84484; 85014; 85018; 86850; 86900; 86920; 87070; 87075; 87077; 87186; 93005; 93306; 93970; 94002; 94003; 94640; 96365; 96368; 96375; 99291; A6261; C9113; J0278; J1815; J1940; J2185; J2270; J2405; J2543; J3370; J3480; J3490; J7030; J7040; J7050; J7060; J7608; J7620; P9016; P9021; A4315

== ENCOUNTER 2019-10-30 14:10 | Inpatient (IN) | payer MEDICARE, MEDICAID ==
[~2019-10-30] VITALS: Ht 182.9 cm; Wt 90.9 kg
[~2019-10-30 14:10] MED LIST changes: +GABA250S4 PO; +INSLIS SUBCUT; +LANS30CA55 PO; +LORA-249 PO; -ONDANSETRON HCL 4MG/2ML INJ IV STA; -PIPERACILLIN/TAZ 3.375G PREMIX 50 ML IV ONE; -VANCOMYCIN 1 G PREMIX 200 ML IV ONE
[2019-10-30] MEDS ORDERED: PIPERACILLIN/TAZ 3.375G PREMIX 50 ML IV ONE (14:45)
[2019-10-30] MEDS ORDERED: VANCOMYCIN 1 G PREMIX 200 ML IV ONE (14:45)
[2019-10-30] MEDS ORDERED: SODIUM CHLORIDE 0.9% 1000ML BAG (SEPSIS BOLUS) IV ONE (14:45)
[2019-10-30 16:02] LABS: BASOPHILS % 0.7 % (0.0-2.0); EOSINOPHILS % 1.6 % (0.0-5.0); HEMATOCRIT. 22.3 % (42.0-52.0); HEMOGLOBIN. 7.1 g/dL (14.0-18.0); LYMPHOCYTES % 7.4 % (20.0-50.0); MEAN CORPUSCULAR HEMOGLOBIN 26.4 pg (28.0-32.0); MEAN CORPUSCULAR VOLUME 82.9 fL (80.0-94.0); MEAN PLATELET VOLUME 8.9 fl (7.4-10.4); MONOCYTES % 5.6 % (2.0-8.0); NEUTROPHILS % 84.7 % (40.0-76.0); PLATELET 420 x1000/uL (130-400); RED CELL DISTRIBUTION WIDTH 19.8 % (11.6-14.6)
[2019-10-30 16:09] LABS: INR 1.2; PROTHROMBIN TIME 11.8 sec (9.6-11.0)
[2019-10-30 16:14] LABS: CHLORIDE 101 mEq/L (98-107)
[2019-10-30 17:08] LABS: BG BASE EXCESS 1.4 mmol/L (-2.0-2.0); BG CARBOXYHEMOGLOBIN 0.2 % (0.5-1.5); BG DEOXYHEMOGLOBIN 0.6 % (0.0-5.0); BG FRACTION INSPIRED OXYGEN 50; BG HCO3 ACT 23.9 mmol/L (22.0-26.0); BG METHEMOGLOBIN 0.2 % (0.0-1.5); BG OXYGEN SATURATION 99.4 % (92.0-98.5); BG PCO2 28.7 mmHg (35.0-45.0); BG PH 7.538 (7.350-7.450); BG PO2 186.5 mmHg (75.0-100.0); BG SAMPLE SITE RIGHT RADIAL; BG TIDAL VOLUME(mL) 500 mL; BG TOTAL HEMOGLOBIN 7.3 g/dL (12.0-18.0); BG VENT MODE VENT - A/C; BG VENT RATE 14 set
[2019-10-30] MEDS ORDERED: ONDANSETRON HCL 4MG/2ML INJ IV PRN (17:15)
[2019-10-30] MEDS: ACETAMINOPHEN 325MG TABLET PO PRN ×2 (17:22→19:00)
[2019-10-30] MEDS ORDERED: SODIUM CHLORIDE 0.9% 1,000 ML IV ONE ×2 (18:00→23:00)
[2019-10-30] MEDS ORDERED: ACETAMINOPHEN 650MG/20.3ML UDC PO ONE (18:15)
[2019-10-30] MEDS ORDERED: DILTIAZEM HCL 5MG/ML 5ML VIAL IV ONE (18:45)
[2019-10-30] MEDS ORDERED: PIPERACILLIN/TAZOBACTAM 3.375GM/50ML PREMIX IV SCH (22:00)
[2019-10-30] MEDS: HEPARIN 5000 UNITS/ML VIAL SUBCUT SCH (23:00)
[2019-10-30] MEDS: PIPERACILLIN/TAZOBACTAM 3.375 G in DEXT 5% WATER 100 ML IV SCH (23:11)
[2019-10-31] VITALS (14 sets, daily range): BP systolic 92–124; BP diastolic 56–83
[2019-10-31] MEDS: DEXT 5%/0.9% NACL 1,000 ML IV SCH (04:06)
[2019-10-31] MEDS: DILTIAZEM HCL 60MG TABLET NG SCH ×4 (04:21→21:53)
[2019-10-31] MEDS ORDERED: VANCOMYCIN 1 G PREMIX 200 ML IV SCH ×2 (05:00→06:00)
[2019-10-31] MEDS: PIPERACILLIN/TAZOBACTAM 3.375 G in DEXT 5% WATER 100 ML IV SCH (05:55)
[2019-10-31 06:49] LABS: BASOPHILS % 0.7 % (0.0-2.0); EOSINOPHILS % 2.3 % (0.0-5.0); LYMPHOCYTES % 8.1 % (20.0-50.0); MEAN CORPUSCULAR HEMOGLOBIN 27.1 pg (28.0-32.0); MEAN CORPUSCULAR VOLUME 83.2 fL (80.0-94.0); MEAN PLATELET VOLUME 8.6 fl (7.4-10.4); MONOCYTES % 7.2 % (2.0-8.0); NEUTROPHILS % 81.7 % (40.0-76.0); PLATELET 380 x1000/uL (130-400); RED BLOOD CELL COUNT 2.39 mill/uL (4.7-6.1); RED CELL DISTRIBUTION WIDTH 19.7 % (11.6-14.6)
[2019-10-31 07:39] LABS: HEMATOCRIT. 19.9 % (42.0-52.0); HEMOGLOBIN. 6.5 g/dL (14.0-18.0)
[2019-10-31 07:47] LABS: CHLORIDE 105 mEq/L (98-107)
[2019-10-31] MEDS: HEPARIN 5000 UNITS/ML VIAL SUBCUT SCH ×2 (09:00→21:54)
[2019-10-31] MEDS ORDERED: DEXTROSE 50% WATER 50ML SYRINGE IV PRN (09:30)
[2019-10-31] MEDS ORDERED: PIPERACILLIN/TAZOBACTAM 3.375 G in DEXT 5% WATER 100 ML IV SCH (12:00)
[2019-10-31] MEDS: INSULIN LISPRO 100 UNITS/ML SUBCUT SCH ×2 (12:54→18:00)
[2019-10-31] MEDS: BLOOD SUGAR DIAGNOSTIC STRIP TEST SCH ×2 (12:54→18:00)
[2019-10-31 17:10] LABS: HEMATOCRIT 23.4 % (42.0-52.0); HEMOGLOBIN 7.6 g/dL (14.0-18.0)
[2019-10-31] MEDS: MEROPENEM 1,000 MG in SODIUM CHLORIDE 0.9% 100 ML IV SCH (19:15)
[2019-10-31] MEDS: ACETAMINOPHEN 325MG TABLET PO PRN (20:15)
[2019-10-31] MEDS: VANCOMYCIN 1 G PREMIX 200 ML IV SCH (20:16)
[2019-10-31] MEDS ORDERED: HYDROCODONE/ACETAMINOPHEN 5/325MG TABLET PO PRN (21:45)
[2019-10-31] MEDS ORDERED: POTASSIUM CHLORIDE 20MEQ/PACKET PO SCH (22:00)
[2019-11-01] VITALS (11 sets, daily range): BP systolic 93–136; BP diastolic 53–78
[2019-11-01] MEDS: DEXT 5%/0.9% NACL 1,000 ML IV SCH (01:00)
[2019-11-01] MEDS: MEROPENEM 1,000 MG in SODIUM CHLORIDE 0.9% 100 ML IV SCH ×3 (02:39→18:14)
[2019-11-01] MEDS: INSULIN LISPRO 100 UNITS/ML SUBCUT SCH ×5 (06:00→23:31)
[2019-11-01] MEDS: BLOOD SUGAR DIAGNOSTIC STRIP TEST SCH ×5 (06:24→23:31)
[2019-11-01] MEDS: DILTIAZEM HCL 60MG TABLET NG SCH ×3 (06:25→22:45)
[2019-11-01 07:41] LABS: CHLORIDE 109 mEq/L (98-107)
[2019-11-01] MEDS: HEPARIN 5000 UNITS/ML VIAL SUBCUT SCH ×2 (09:00→20:35)
[2019-11-01] MEDS: VANCOMYCIN 1 G PREMIX 200 ML IV SCH ×2 (09:28→20:35)
[2019-11-01] MEDS ORDERED: LIDOCAINE HCL 1% 20ML VIAL (Pyxis) INJ ONE (09:51)
[2019-11-01] MEDS: ACETAMINOPHEN 325MG TABLET PO PRN (09:53)
[2019-11-01] MEDS ORDERED: IPRATROPIUM/ALBUTEROL 0.5-3(2.5)MG/3ML NEB HHN PRN (18:00)
[2019-11-01] MEDS: IPRATROPIUM/ALBUTEROL 0.5-3(2.5)MG/3ML NEB HHN SCH (20:28)
[2019-11-02] VITALS (12 sets, daily range): BP systolic 92–146; BP diastolic 54–87
[2019-11-02] MEDS: IPRATROPIUM/ALBUTEROL 0.5-3(2.5)MG/3ML NEB HHN SCH ×6 (00:21→20:55)
[2019-11-02] MEDS: ACETYLCYSTEINE 100MG/ML 10% VIAL 4ML INH SCH ×3 (00:22→16:30)
[2019-11-02] MEDS: MEROPENEM 1,000 MG in SODIUM CHLORIDE 0.9% 100 ML IV SCH ×3 (02:00→17:03)
[2019-11-02] MEDS: DEXT 5%/0.9% NACL 1,000 ML IV SCH (04:22)
[2019-11-02] MEDS: INSULIN LISPRO 100 UNITS/ML SUBCUT SCH ×3 (06:00→18:00)
[2019-11-02] MEDS: BLOOD SUGAR DIAGNOSTIC STRIP TEST SCH ×3 (06:00→18:15)
[2019-11-02] MEDS: DILTIAZEM HCL 60MG TABLET NG SCH ×3 (07:08→22:59)
[2019-11-02 07:22] LABS: BASOPHILS % 0.5 % (0.0-2.0); CHLORIDE 109 mEq/L (98-107); HEMOGLOBIN. 7.3 g/dL (14.0-18.0); LYMPHOCYTES % 9.8 % (20.0-50.0); MEAN CORPUSCULAR HEMOGLOBIN 27.9 pg (28.0-32.0); MEAN CORPUSCULAR VOLUME 84.2 fL (80.0-94.0); MONOCYTES % 5.8 % (2.0-8.0); NEUTROPHILS % 76.9 % (40.0-76.0); PLATELET 358 x1000/uL (130-400); RED BLOOD CELL COUNT 2.62 mill/uL (4.7-6.1); RED CELL DISTRIBUTION WIDTH 18.8 % (11.6-14.6)
[2019-11-02] MEDS: VANCOMYCIN 1 G PREMIX 200 ML IV SCH ×2 (08:21→19:49)
[2019-11-02] MEDS: HEPARIN 5000 UNITS/ML VIAL SUBCUT SCH (08:34)
[2019-11-02] MEDS: ENOXAPARIN 40MG/0.4ML SYR SUBCUT SCH (16:30)
[2019-11-02] MEDS: SODIUM HYPOCHLORITE 0.125% 473ML SOLUTION TOP SCH (16:30)
[2019-11-02] MEDS ORDERED: POTASSIUM CHLORIDE 20MEQ TABLET SR PO NR (17:00)
[2019-11-03] VITALS (12 sets, daily range): BP systolic 90–134; BP diastolic 57–80
[2019-11-03] MEDS: IPRATROPIUM/ALBUTEROL 0.5-3(2.5)MG/3ML NEB HHN SCH ×6 (00:21→20:12)
[2019-11-03] MEDS: ACETYLCYSTEINE 100MG/ML 10% VIAL 4ML INH SCH ×3 (00:22→16:21)
[2019-11-03] MEDS: INSULIN LISPRO 100 UNITS/ML SUBCUT SCH ×4 (00:59→18:00)
[2019-11-03] MEDS: BLOOD SUGAR DIAGNOSTIC STRIP TEST SCH ×4 (01:03→18:53)
[2019-11-03] MEDS: MEROPENEM 1,000 MG in SODIUM CHLORIDE 0.9% 100 ML IV SCH ×3 (02:59→17:36)
[2019-11-03] MEDS: DILTIAZEM HCL 60MG TABLET NG SCH ×2 (06:00→14:33)
[2019-11-03 06:02] LABS: BASOPHILS % 0.9 % (0.0-2.0); EOSINOPHILS % 5.3 % (0.0-5.0); HEMOGLOBIN. 7.7 g/dL (14.0-18.0); LYMPHOCYTES % 11.9 % (20.0-50.0); MEAN CORPUSCULAR HEMOGLOBIN 28.2 pg (28.0-32.0); MEAN CORPUSCULAR VOLUME 84.7 fL (80.0-94.0); MEAN PLATELET VOLUME 8.6 fl (7.4-10.4); MONOCYTES % 8.3 % (2.0-8.0); NEUTROPHILS % 73.6 % (40.0-76.0); PLATELET 351 x1000/uL (130-400); RED BLOOD CELL COUNT 2.72 mill/uL (4.7-6.1); RED CELL DISTRIBUTION WIDTH 18.6 % (11.6-14.6)
[2019-11-03 06:43] LABS: CHLORIDE 110 mEq/L (98-107)
[2019-11-03] MEDS: VANCOMYCIN 1 G PREMIX 200 ML IV SCH (08:51)
[2019-11-03] MEDS: SODIUM HYPOCHLORITE 0.125% 473ML SOLUTION TOP SCH (08:52)
[2019-11-03] MEDS: ENOXAPARIN 40MG/0.4ML SYR SUBCUT SCH (08:52)
[2019-11-03] MEDS: ACETAMINOPHEN 325MG TABLET PO PRN (19:03)
== END 2019-11-03 22:04 | DRG 720 ==
LOC: ER 14:10 → 5EST 17:05 → EDBEDREQTM 17:13 → EDBEDREQ 17:13 → ENRESERV 23:44
PROVIDERS: ADMIT Family Medicine Adult Medicine; ATTEND Family Medicine Adult Medicine
PROC: 5A1955Z Respiratory Ventilation, Greater than 96 Consecutive Hours (ICD-10-PCS; principal; 2019-10-30)
PROC: 30233N1 Transfusion of Nonautologous Red Blood Cells into Peripheral Vein, Percutaneous Approach (ICD-10-PCS; 2019-10-31)
PROC: 05HY33Z Insertion of Infusion Device into Upper Vein, Percutaneous Approach (ICD-10-PCS; 2019-11-01)
PROC: B54MZZA Ultrasonography of Right Upper Extremity Veins, Guidance (ICD-10-PCS; 2019-11-01)
DX: A41.9 Sepsis, unspecified organism (principal); J96.20 Acute and chronic respiratory failure, unspecified whether with hypoxia or hypercapnia; E43 Unspecified severe protein-calorie malnutrition; G93.40 Encephalopathy, unspecified; N17.9 Acute kidney failure, unspecified; J18.9 Pneumonia, unspecified organism; Z99.11 Dependence on respirator [ventilator] status; Z93.0 Tracheostomy status; E11.51 Type 2 diabetes mellitus with diabetic peripheral angiopathy without gangrene; J44.0 Chronic obstructive pulmonary disease with (acute) lower respiratory infection; I27.20 Pulmonary hypertension, unspecified; R13.10 Dysphagia, unspecified; D64.9 Anemia, unspecified; L97.919 Non-pressure chronic ulcer of unspecified part of right lower leg with unspecified severity; I10 Essential (primary) hypertension; B96.89 Other specified bacterial agents as the cause of diseases classified elsewhere; E78.00 Pure hypercholesterolemia, unspecified; E78.5 Hyperlipidemia, unspecified; E87.6 Hypokalemia; G40.909 Epilepsy, unspecified, not intractable, without status epilepticus; I25.10 Atherosclerotic heart disease of native coronary artery without angina pectoris; I42.9 Cardiomyopathy, unspecified; I48.0 Paroxysmal atrial fibrillation; K21.9 Gastro-esophageal reflux disease without esophagitis; L89.90 Pressure ulcer of unspecified site, unspecified stage; L97.929 Non-pressure chronic ulcer of unspecified part of left lower leg with unspecified severity; R47.02 Dysphasia; N39.0 Urinary tract infection, site not specified; N40.0 Benign prostatic hyperplasia without lower urinary tract symptoms; Z74.01 Bed confinement status; Z79.4 Long term (current) use of insulin; Z86.718 Personal history of other venous thrombosis and embolism; Z86.73 Personal history of transient ischemic attack (TIA), and cerebral infarction without residual deficits; Z86.74 Personal history of sudden cardiac arrest; Z87.01 Personal history of pneumonia (recurrent); Z87.11 Personal history of peptic ulcer disease; Z87.440 Personal history of urinary (tract) infections; Z93.1 Gastrostomy status; Z95.1 Presence of aortocoronary bypass graft; Z68.27 Body mass index [BMI] 27.0-27.9, adult; Z79.899 Other long term (current) drug therapy
CPT/HCPCS: 36415; 36600; 71045; 76937; 80048; 80053; 80202; 82375; 82805; 82962; 83605; 83735; 84134; 84484; 85014; 85018; 85025; 86850; 86900; 86920; 87070; 87077; 87186; 93005; 93970; 94003; 94640; 94667; 96365; 96368; 96375; 97161; 99291; C1725; J1644; J1650; J2185; J2543; J3370; J3490; J7030; J7040; J7042; J7050; J7060; J7608; J7620; P9016